=== PATIENT | female | born 1940 | race Caucasian/White ===

== ENCOUNTER 2017-02-11 09:53 | Outpatient (CLI) | payer MEDICARE, OTHER | END 2017-02-11 09:54 | disposition home or self-care (01) | DX: E78.5 Hyperlipidemia, unspecified (principal); E11.29 Type 2 diabetes mellitus with other diabetic kidney complication ==

== ENCOUNTER 2017-02-13 10:20 | Outpatient (CLI) | payer MEDICARE, OTHER | END 2017-02-13 10:21 | disposition home or self-care (01) | DX: N39.0 Urinary tract infection, site not specified (principal) ==

== ENCOUNTER 2017-03-11 06:33 | Outpatient (CLI) | payer MEDICARE, OTHER | END 2017-03-11 06:34 | disposition home or self-care (01) | DX: N39.0 Urinary tract infection, site not specified (principal) ==

== ENCOUNTER 2017-04-04 12:35 | Outpatient (CLI) | payer MEDICARE, OTHER ==
[2017-04-04] MEDS ORDERED: IOPAMIDOL-300 100 ML VIAL IVP ONE (15:47)
== END 2017-04-04 12:36 | disposition home or self-care (01) ==
DX: C7A.098 Malignant carcinoid tumors of other sites (principal); R59.0 Localized enlarged lymph nodes
CPT/HCPCS: 74170; Q9967

== ENCOUNTER 2017-04-24 09:29 | Outpatient (CLI) | payer MEDICARE, OTHER ==
[2017-04-24 13:54] LABS: HEMOGLOBIN A1C 0.77 g/dL
[2017-04-24 13:57] LABS: CHOL/HDL RATIO 2.6 (<4.4); CHOLESTEROL 132 mg/dL; HDL CHOLESTEROL 50 mg/dL; TRIGLYCERIDES 153 mg/dL; VLDL CHOLESTEROL 31 mg/dL
== END 2017-04-24 09:30 | disposition home or self-care (01) ==
LOC: LAB.WCP 09:29
PROVIDERS: ATTEND Family Medicine
DX: E78.5 Hyperlipidemia, unspecified (principal); E11.29 Type 2 diabetes mellitus with other diabetic kidney complication
CPT/HCPCS: 36415; 80061; 82043; 83036

== ENCOUNTER 2017-06-10 09:59 | Outpatient (CLI) | payer MEDICARE, OTHER ==
[2017-06-10 15:54] LABS: CALCIUM 8.8 mg/dL (8.5-10.3); CREATININE 1.1 mg/dL (0.4-1.0); POTASSIUM 4.1 mmol/L (3.5-5.0)
== END 2017-06-10 10:00 | disposition home or self-care (01) ==
LOC: LAB.WCP 09:59
PROVIDERS: ATTEND Family Medicine
DX: N28.9 Disorder of kidney and ureter, unspecified (principal)
CPT/HCPCS: 36415; 80048

== ENCOUNTER 2017-06-27 22:15 | Inpatient (IN) | payer MEDICARE, OTHER ==
[2017-06-27] MEDS ORDERED: SODIUM CHLORIDE 0.9% 1,000 ML IV ONE (22:58)
[2017-06-27] MEDS ORDERED: IPRATROPIUM/ALBUTEROL 3 ML NEB INH STA (23:23)
[2017-06-27 23:38] LABS: VBG PH 7.344 (7.31-7.41)
[2017-06-27] MEDS ORDERED: IPRATROPIUM/ALBUTEROL 3 ML NEB INH ONE ×2 (23:38→23:42)
[2017-06-27 23:39] LABS: VBG BASE EXCESS 1.7 mmol/L (-2 - +2); VBG OXYGEN SATURATION 70.3 % (60-80); VBG TOTAL CO2 29.7 mmol/L (24-29)
[2017-06-27 23:49] LABS: ALBUMIN/GLOBULIN RATIO 0.8 (1.0-2.2); BILIRUBIN,TOTAL 1.2 mg/dL (0.2-1.0); BUN - BLOOD UREA NITROGEN 16 mg/dL (6-20); CALCIUM 8.3 mg/dL (8.5-10.3); CARBON DIOXIDE - CO2 29 mmol/L (21-32); CHLORIDE 92 mmol/L (101-111); CREATININE 1.3 mg/dL (0.4-1.0); GFR - MDRD 40 (>89); GLUCOSE 404 mg/dL (70-100); LIPASE 17 U/L (22-51); POTASSIUM 4.5 mmol/L (3.5-5.0); SODIUM 129 mmol/L (135-145); TOTAL PROTEIN 6.8 g/dL (6.7-8.2)
[2017-06-28] MEDS ORDERED: INSULIN REGULAR HUMAN 100 UNIT/1 ML 10 ML MDV IVP STA (00:23)
[2017-06-28] MEDS ORDERED: INSULIN REGULAR HUMAN 100 UNIT/1 ML 10 ML MDV ONE (00:40)
[2017-06-28 00:44] LABS: BASOPHILS % (AUTO) 0.1 %; EOSINOPHILS % (AUTO) 0.2 %; HCT - HEMATOCRIT 32.9 % (37.0-47.0); HGB - HEMOGLOBIN 10.9 g/dL (12.0-16.0); LYMPHOCYTES # (AUTO) 0.5 10^3/uL (1.5-3.5); LYMPHOCYTES % (AUTO) 6.1 %; MEAN CORPUSCULAR HEMOGLOBIN 30.6 pg (27.0-31.0); MEAN CORPUSCULAR HGB CONC 33.2 g/dL (32.0-36.0); MEAN CORPUSCULAR VOLUME 92.3 fL (81.0-99.0); MEAN PLATELET VOLUME 7.7 fL (7.9-10.8); MONOCYTES # (AUTO) 0.6 10^3/uL (0.0-1.0); NEUTROPHILS # (AUTO) 6.8 10^3/uL (1.5-6.6); NEUTROPHILS % (AUTO) 85.6 %; RED BLOOD COUNT 3.56 10^6/uL (4.20-5.40); RED CELL DISTRIBUTION WIDTH 14.3 % (12.0-15.0)
[2017-06-28] MEDS ORDERED: HYDROcod/ACETAM 10 MG/325 MG TABLET PO PRN (01:10)
[2017-06-28] MEDS ORDERED: PROCHLORPERAZINE 10 MG/2 ML VIAL IVP PRN (01:10)
[2017-06-28] MEDS ORDERED: HYDROcod/ACETAM 5/325 MG TABLET PO PRN (01:10)
[2017-06-28] MEDS ORDERED: SODIUM CHLORIDE FLUSH 0.9% 10 ML SYRINGE IVP PRN (01:10)
[2017-06-28] MEDS ORDERED: ZOLPIDEM 5 MG TABLET PO PRN (01:10)
[2017-06-28] MEDS ORDERED: ONDANSETRON 4 MG/2 ML VIAL IVP PRN (01:10)
--- NOTE | 2017-06-28 01:17 | XRAY Preliminary Report ---
Exam: XR Chest 1 View IMPRESSION: 1. Mild bibasilar atelectasis or infiltrate. [facility] SITE ID: [id number]
--- NOTE | 2017-06-28 01:20 | XRAY Report ---
EXAM: CHEST RADIOGRAPHY EXAM DATE: 06/28/2017 12:46 AM. CLINICAL HISTORY: Fever, diagnosed with pneumonia persistent cough. COMPARISON: 07/26/2013. TECHNIQUE: 1 view. FINDINGS: Lungs/Pleura: Mild bibasilar atelectasis or infiltrate. No pleural effusion seen. No pneumothorax. Mediastinum: Within exam limitations, cardiomediastinal contour is normal. Other: None. IMPRESSION: 1. Mild bibasilar atelectasis or infiltrate. [facility] Referring Provider Line: [phone] SITE ID: [id number]
--- NOTE | 2017-06-28 01:23 | ED Physician Documentation ---
History of Present Illness - Stated complaint Stated Complaint: HIGH BLOOD SUGAR - Chief complaint Chief Complaint: General - History obtained from History obtained from: Patient, Family - Additonal information Additional information: Patient is a 76 year old female with a history of pancreatic ca who gets hormones and chemo once a month who is presenting to the emergency department for hyperglycemia, worsening cough and shortness of breath. According to patient and family the patient developed pneumonia last week and had been started on azithromycin. patient's insulin had been stopped since she a had few episodes of hyperglycemia. Patient and family state that the patient did not improve with the antibiotics and the blood glucose has been poorly controlled. Review of Systems Constitutional: reports: Fever, Chills Eyes: denies: Decreased vision, Photophobia Ears: denies: Ear pain, Drainage/discharge Nose: denies: Congestion, Epistaxis Throat: denies: Dental pain / toothache, Sore throat Cardiac: denies: Chest pain / pressure Respiratory: reports: Dyspnea, Cough, Wheezing GI: denies: Nausea, Vomiting, Constipation : denies: Dysuria, Frequency Skin: denies: Rash, Lesions Musculoskeletal: denies: Neck pain, Back pain, Extremity pain, Joint pain Neurologic: reports: Confused. denies: Generalized weakness, Focal weakness, Numbness, Syncope, Headache, LOC Psychiatric: denies: Depressed Immunocompromised: reports: Immunocompromised, Chemotherapy PD PAST MEDICAL HISTORY - Past Medical History Cardiovascular: Hypertension, High cholesterol Endocrine/Autoimmune: Type 2 diabetes GI: GERD, Chronic diarrhea : Nocturia Psych: Depression - Past Surgical History Past Surgical History: Yes General: Appendectomy /CNA GNA: Hysterectomy - Present Medications Home Medications: Ambulatory Orders Medication Instructions Recorded Confirmed Aspirin Chewable [[place] 81 mg PO Q48H 07/26/13 06/27/17 Aspirin] Atorvastatin Calcium [Lipitor] 40 mg PO DAILY 07/26/13 06/27/17 Calcium Carbonate/Vitamin D3 1 each PO DAILY 07/26/13 06/27/17 [Calcium + Vitamin D Tablet] Cholecalciferol (Vitamin D3) 100,000 unit PO Q30D 07/26/13 06/27/17 [Vitamin D] Insulin Aspart [NovoLOG] 5 - 13 unit SUBQ TIDWM 07/26/13 06/27/17 Insulin Glargine,Hum.rec.anlog 20 unit SQ DAILY 07/26/13 06/27/17 [Lantus] Lisinopril 10 mg PO DAILY 07/26/13 06/27/17 Sertraline [Zoloft] 25 mg PO DAILY 07/26/13 06/27/17 Vit B12/FA/Pyridoxine HCl/Aa15 1 each PO DAILY 07/26/13 06/27/17 [Glycotrol Capsule] hydroCHLOROthiazide [Hydrodiuril] 25 mg PO DAILY 07/26/13 06/27/17 Multivitamin [Multivitamins] 1 each PO DAILY 10/31/16 06/27/17 Omeprazole 10 mg PO DAILY 10/31/16 06/27/17 Calcium Carbonate [Antacid] 200 mg PO BID 03/04/17 06/27/17 Diphenoxylate/Atropine [Lomotil] 1 - 2 tab ORAL PRN PRN 06/10/17 06/27/17 Potassium Chloride 20 meq PO BID 06/24/17 06/27/17 Ipratropium/Albuterol Sulfate 1 amp INH QID 06/27/17 06/27/17 [Iprat-Albut 0.5-3(2.5) mg/3 ml] - Allergies Allergies/Adverse Reactions: Allergies Allergy/AdvReac Type Severity Reaction Status Date / Time No Known Drug Allergies Allergy Verified 07/26/13 11:10 - Social History Does the pt smoke?: No Smoking Status: Former smoker Does the pt drink ETOH?: Yes Does the pt have substance abuse?: No - POLST Patient has POLST: No PD ED PE NORMAL - Vitals Vital signs reviewed: Yes - General General: Alert and oriented X 3 - HEENT HEENT: Atraumatic, PERRL - Neck Neck: No JVD - Cardiac Cardiac: RRR - Abdomen Abdomen: Soft, Non tender, Non distended - Derm Derm: Normal color, Warm and dry, No rash - Neuro Neuro: Alert and oriented X 3, No motor deficit, Normal speech PD ED PE EXPANDED - General General: Alert - HEENT HEENT: Dry mucous membranes - Respiratory Respiratory: Wheezing, Rhonchi, Right middle lobe, Right lower lobe, Left lower lobe Results - Vitals Vitals: Vital Signs - 24 hr 06/27/17 06/27/17 06/28/17 22:20 23:44 00:44 Temperature 37.6 C H Heart Rate 82 82 100 Respiratory 20 20 20 Rate Blood Pressure 149/67 H 145/43 H O2 Saturation 96 96 Oxygen O2 Source Nasal cannula - Labs Labs: Laboratory Tests 06/27/17 06/27/17 06/27/17 23:25 23:25 23:25 WBC 8.0 RBC 3.56 L Hgb 10.9 L Hct 32.9 L MCV 92.3 MCH 30.6 MCHC 33.2 RDW 14.3 Plt Count 181 MPV 7.7 L Neut # 6.8 H Lymph # 0.5 L M[place] # 0.6 Eos # 0.0 Baso # 0.0 Absolute Nucleated RBC 0.00 Nucleated RBCs 0.0 VBG pH 7.344 VBG pCO2 52.8 H VBG pO2 35.0 VBG HCO3 28.1 H VBG Total CO2 29.7 H VBG O2 Saturation 70.3 VBG Base Excess 1.7 Sodium 129 L Potassium 4.5 Chloride 92 L Carbon Dioxide 29 Anion Gap 8.0 BUN 16 Creatinine 1.3 H Estimated GFR (MDRD) 40 L Glucose 404 H Glycated Hemoglobin Estim Average Glucose Lactic Acid Calcium 8.3 L Total Bilirubin 1.2 H AST 21 ALT 23 Alkaline Phosphatase 149 H Total Protein 6.8 Albumin 3.1 L Globulin 3.7 Albumin/Globulin Ratio 0.8 L Lipase 17 L Serum Ketones NEGATIVE 06/27/17 06/27/17 23:25 23:25 WBC RBC Hgb Hct MCV MCH MCHC RDW Plt Count MPV Neut # Lymph # Mccormick # Eos # Baso # Absolute Nucleated RBC Nucleated RBCs VBG pH VBG pCO2 VBG pO2 VBG HCO3 VBG Total CO2 VBG O2 Saturation VBG Base Excess Sodium Potassium Chloride Carbon Dioxide Anion Gap BUN Creatinine Estimated GFR (MDRD) Glucose Glycated Hemoglobin 8.2 H Estim Average Glucose 189 H Lactic Acid 1.3 Calcium Total Bilirubin AST ALT Alkaline Phosphatase Total Protein Albumin Globulin Albumin/Globulin Ratio Lipase Serum Ketones - Rads (name of study) chest x-ray Radiology: Final report received (bilateral opacities) PD MEDICAL DECISION MAKING - ED course Complexity details: reviewed old records, reviewed results, re-evaluated patient , considered differential, d/w patient, d/w family ED course: Patient was seen and examined at bedside. IV access was gained and labs were drawn. patient was treated with IV fluids, insulin and three duonebs. . chest x-ray was performed and showed bilateral pnuemonia. hospitalist was contacted and the case was discussed with him. Patient was admitted under his service for further evaluation and care. Departure - Departure Disposition: 66 [facility] DC/Xfer Clinical Impression: Pneumonia, Hyperglycemia Condition: Stable Discharge Date/Time: 06/28/17 02:16
[2017-06-28 01:50] LABS: BILIRUBIN,URINE NEGATIVE (NEGATIVE)
[2017-06-28 01:51] LABS: UA w/ MICROSCOPIC CHARGE YES
[2017-06-28 01:56] LABS: UR CULTURE IF IND NOT INDICATED; WBC,URINE >25 /HPF (0-5)
[2017-06-28 02:14] LABS: HEMOGLOBIN A1C 0.77 g/dL
[2017-06-28] MEDS: SODIUM CHLORIDE 0.9% 1,000 ML IV SCH ×4 (02:32→23:40)
[2017-06-28 06:06] LABS: BASOPHILS % (AUTO) 0.2 %; HCT - HEMATOCRIT 29.1 % (37.0-47.0); HGB - HEMOGLOBIN 9.7 g/dL (12.0-16.0); LYMPHOCYTES # (AUTO) 0.4 10^3/uL (1.5-3.5); LYMPHOCYTES % (AUTO) 5.5 %; MEAN CORPUSCULAR HEMOGLOBIN 30.6 pg (27.0-31.0); MEAN CORPUSCULAR HGB CONC 33.3 g/dL (32.0-36.0); MEAN CORPUSCULAR VOLUME 91.8 fL (81.0-99.0); MEAN PLATELET VOLUME 7.5 fL (7.9-10.8); MONOCYTES # (AUTO) 0.6 10^3/uL (0.0-1.0); MONOCYTES % (AUTO) 8.2 %; NEUTROPHILS # (AUTO) 5.9 10^3/uL (1.5-6.6); NEUTROPHILS % (AUTO) 86.1 %; RED BLOOD COUNT 3.17 10^6/uL (4.20-5.40); RED CELL DISTRIBUTION WIDTH 13.7 % (12.0-15.0); UNCORRECTED WHITE BLOOD COUNT 6.9 x10^3/uL; WHITE BLOOD COUNT 6.9 x10^3/uL (4.8-10.8)
[2017-06-28 06:08] LABS: CALCIUM 7.6 mg/dL (8.5-10.3); CREATININE 1.1 mg/dL (0.4-1.0); POTASSIUM 4.6 mmol/L (3.5-5.0)
--- NOTE | 2017-06-28 06:25 | HISTORY & PHYSICAL EXAMINATION ---
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 The patient was brought into the ER by her son and daughter in law. They state that over the last day the patient has been increasingly sleepy, lethargic and has been dosing off and talking to herself and having hallucination which is something she has never done before. The patient has been having cough, sore throat and fever for several days now and underwent a CT of her abdomen 2 days ago for routine follow up of her cancer on that CT she was found to have a right lower lobe infiltrate. She was prescribed antibiotics by her PCP yesterday and has been taking them but seems to be getting worse. The patients family also states when the patient was confused this evening they checked her blood glucose and it was 500 which alarmed them and they decided to bring the patient into the ER. The patient has been making adjustments to her lantus dose with her PCPs guidance as she had been having episodes of hypoglycemia. She had just been taken off of lantus all together 2 days ago. The patient denies any headaches, blurred vision, she is hard of hearing, she denies any abdominal pain, nausea, vomiting, urinary symptoms or focal neurological deficits. On presentation to the ER the patient was found to have a low grade fever and had a bad cough and her lungs sounded terrible. Patients blood glucose was in the 400s but she did not have DKA. Patient was admitted for IV antibiotics, IV fluid and blood glucose control. Review of Systems - Other Findings Other Findings: A comprehensive review of systems was performed the pertinent positives and negatives are stated above in the HPI the remainder of the review of systems is negative. History - Past Medical History Cardiovascular: reports: Hypertension, High cholesterol Endocrine/Autoimmune: reports: Type 2 diabetes GI: reports: GERD, Chronic diarrhea : reports: Nocturia Psych: reports: Depression MRSA Hx?: No Other Past Medical History: 1. Diabetes. 2. Carcinoid Tumor of the Pancreatic Head. 3. Hypertension. 4. Esophagitis. 5. GERD. 6. CKD stage III patient was temporarily on dialysis in the past after accident. 7. 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 She is very active and still drives herself and is fully independent. She is originally from [place] [facility] and moved here after her in 2001. She has 3 kids. She quit smoking 40 years ago. She rarely drinks alcohol. She does not use any illicit drugs. - Substance History Use: Uses substance without health or social issues: NONE Abuse: Recurrent use of substance despite neg consequences: NONE Dependence: Experiences withdrawal or developed tolerances: NONE - POLST Patient has POLST: No POLST Status: Full Code Meds/Allgy - Home Medications Home Medications: Ambulatory Orders Medication Instructions Recorded Confirmed Aspirin Chewable [[place] 81 mg PO Q48H 07/26/13 06/27/17 Aspirin] Atorvastatin Calcium [Lipitor] 40 mg PO DAILY 07/26/13 06/27/17 Calcium Carbonate/Vitamin D3 1 each PO DAILY 07/26/13 06/27/17 [Calcium + Vitamin D Tablet] Cholecalciferol (Vitamin D3) 100,000 unit PO Q30D 07/26/13 06/27/17 [Vitamin D] Insulin Aspart [NovoLOG] 5 - 13 unit SUBQ TIDWM 07/26/13 06/27/17 Insulin Glargine,Hum.rec.anlog 20 unit SQ DAILY 07/26/13 06/27/17 [Lantus] Lisinopril 10 mg PO DAILY 07/26/13 06/27/17 Sertraline [Zoloft] 25 mg PO DAILY 07/26/13 06/27/17 Vit B12/FA/Pyridoxine HCl/Aa15 1 each PO DAILY 07/26/13 06/27/17 [Glycotrol Capsule] hydroCHLOROthiazide [Hydrodiuril] 25 mg PO DAILY 07/26/13 06/27/17 Multivitamin [Multivitamins] 1 each PO DAILY 10/31/16 06/27/17 Omeprazole 10 mg PO DAILY 10/31/16 06/27/17 Calcium Carbonate [Antacid] 200 mg PO BID 03/04/17 06/27/17 Diphenoxylate/Atropine [Lomotil] 1 - 2 tab ORAL PRN PRN 06/10/17 06/27/17 Potassium Chloride 20 meq PO BID 06/24/17 06/27/17 Ipratropium/Albuterol Sulfate 1 amp INH QID 06/27/17 06/27/17 [Iprat-Albut 0.5-3(2.5) mg/3 ml] - Allergies Allergies/Adverse Reactions: Allergies Allergy/AdvReac Type Severity Reaction Status Date / Time No Known Drug Allergies Allergy Verified 07/26/13 11:10 Exam - Vital Signs Reviewed Vital Signs: Yes Vital Signs: Vital Signs x48h Temp Pulse Pulse Resp BP BP Pulse Ox 06/28/17 06:02 94 134/59 H 06/28/17 02:45 108 H 18 06/28/17 02:25 36.7 C 113 H 18 139/105 H 96 06/28/17 01:27 93 20 124/42 L 97 - Physical Exam General Appearance: positive: Moderate distress (Hallucinating, hard of hearing , coughing), Lethargic (drowsy keeps nodding off during exam) Eyes Bilateral: positive: Normal inspection, PERRL, EOMI, No lid inflammation, Conjunctivae nml, No scleral icterus ENT: positive: ENT inspection nml, Pharynx nml, Dry mucous membranes. negative : Purulent nasal drainage, Pharyngeal erythema, Oral lesions Neck: positive: Nml inspection, Thyroid nml, No JVD, Trachea midline. negative : Thyromegaly, Lymphadenopathy (R), Lymphadenopathy (L), Carotid bruit, Tracheal deviation Respiratory: positive: Chest non-tender, No respiratory distress, Rales, Rhonchi , Other (Diffuse rhoncerous breath sounds) Cardiovascular: positive: Regular rate & rhythm, No murmur, No gallop Peripheral Pulses: positive: 2+ Abdomen: positive: Non-tender, No organomegaly, Nml bowel sounds, No distention. negative: Guarding, Rebound, Bruit Back: positive: Nml inspection. negative: CVA tenderness (R), CVA tenderness (L ) Skin: positive: Color nml, No rash, Dry. negative: Cyanosis, Pallor Extremities: positive: Non-tender, Full ROM, Nml appearance, No pedal edema Neurologic/Psychiatric: positive: Oriented x3, CN's nml (2-12), Motor nml, Other (Drowsy, hard of hearing, hallucinating, talking in her sleep) Conclusion/Plan - Problem List (1) CAP (community acquired pneumonia) Conclusion/Plan: Cough, sore throat and weakness over the last week Found to have right lower lobe pneumonia on CT started on abx by PCP but not improving Today she was lethargic and confused Plan: IV ceftriaxone and IV azithromycin IVFs Supplemental O2 Nebs Monitor (2) UTI (urinary tract infection) Conclusion/Plan: Patient was lethargic and confused on presentation but no urinary symptoms She had history of diabetes which is poorly controlled on presentation Patients UA was very positive for infection Plan: IV ceftriaxone IVFs Urine cx pending Qualifiers: Urinary tract infection type: acute cystitis (3) Diabetes Conclusion/Plan: Unconrtolled blood sugars on presentation May have contributed to altered mental status Patient not in DKA Uncontrolled secondary to infection and changes in her insulin regimen Plan: Restart patients lantus at 10 units SubQ Monitor closely as she has been having hypoglycemic episodes SS insulin with meals Monitor blood glucose HbA1C of 8.2 Qualifiers: Diabetes mellitus type: type 2 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: with mcc use (4) RACHELE (acute kidney injury) Conclusion/Plan: Superintendent Custodian Janitor up to 1.3 Appears to be pre-renal as she is dehydrated secondary to infection Give IVFs Monitor 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 Avoid nephrotoxic agents (5) Hyponatremia Conclusion/Plan: Hypovolemic and pseudo secondary to elevated blood glucose Give IVFs and correct blood glucose Monitor (6) Hypertension Conclusion/Plan: Blood pressure stable Continue home meds Monitor Qualifiers: Hypertension type: essential hypertension Qualified Code(s): I10 - Essential (primary) hypertension (7) Prophylactic use of low molecular weight heparin for venous thromboembolism Conclusion/Plan: Place on lovenox - Lab Results Lab results reviewed: Yes Fish Bones: 06/27/17 23:25 06/27/17 23:25 Other Lab Results: Laboratory Results WBC 6.9 x10^3/uL (4.8-10.8) 06/28/17 05:19 RBC 3.17 10^6/uL (4.20-5.40) L 06/28/17 05:19 Hgb 9.7 g/dL (12.0-16.0) L 06/28/17 05:19 Hct 29.1 % (37.0-47.0) L 06/28/17 05:19 MCV 91.8 fL (81.0-99.0) 06/28/17 05:19 MCH 30.6 pg (27.0-31.0) 06/28/17 05:19 MCHC 33.3 g/dL (32.0-36.0) 06/28/17 05:19 RDW 13.7 % (12.0-15.0) 06/28/17 05:19 Plt Count 166 10^3/uL (130-450) 06/28/17 05:19 MPV 7.5 fL (7.9-10.8) L 06/28/17 05:19 Neut # 5.9 10^3/uL (1.5-6.6) 06/28/17 05:19 Lymph # 0.4 10^3/uL (1.5-3.5) L 06/28/17 05:19 [place] # 0.6 10^3/uL (0.0-1.0) 06/28/17 05:19 Eos # 0.0 10^3/uL (0.0-0.7) 06/28/17 05:19 Baso # 0.0 10^3/uL (0.0-0.1) 06/28/17 05:19 Absolute Nucleated RBC 0.00 x10^3/uL 06/28/17 05:19 Nucleated RBCs 0.0 /100WBC 06/28/17 05:19 VBG pH 7.344 (7.31-7.41) 06/27/17 23:25 VBG pCO2 52.8 mmHg (41-51) H 06/27/17 23:25 VBG pO2 35.0 mmHg (25-47) 06/27/17 23:25 VBG HCO3 28.1 mmol/L (23-28) H 06/27/17 23:25 VBG Total CO2 29.7 mmol/L (24-29) H 06/27/17 23:25 VBG O2 Saturation 70.3 % (60-80) 06/27/17 23:25 VBG Base Excess 1.7 mmol/L (-2 - +2) 06/27/17 23:25 Sodium 131 mmol/L (135-145) L 06/28/17 05:19 Potassium 4.6 mmol/L (3.5-5.0) 06/28/17 05:19 Chloride 96 mmol/L (101-111) L 06/28/17 05:19 Carbon Dioxide 26 mmol/L (21-32) 06/28/17 05:19 Anion Gap 9.0 (6-13) 06/28/17 05:19 BUN 15 mg/dL (6-20) 06/28/17 05:19 Creatinine 1.1 mg/dL (0.4-1.0) H 06/28/17 05:19 Estimated GFR (MDRD) 48 (>89) L 06/28/17 05:19 Glucose 365 mg/dL (70-100) H 06/28/17 05:19 Glycated Hemoglobin 8.2 % (4.6-6.2) H 06/27/17 23:25 Estim Average Glucose 189 (70-100) H 06/27/17 23:25 Lactic Acid 1.3 mmol/L (0.5-2.2) 06/27/17 23:25 Calcium 7.6 mg/dL (8.5-10.3) L 06/28/17 05:19 Total Bilirubin 1.2 mg/dL (0.2-1.0) H 06/27/17 23:25 AST 21 IU/L (10-42) 06/27/17 23:25 ALT 23 IU/L (10-60) 06/27/17 23:25 Alkaline Phosphatase 149 IU/L (42-121) H 06/27/17 23:25 Total Protein 6.8 g/dL (6.7-8.2) 06/27/17 23:25 Albumin 3.1 g/dL (3.2-5.5) L 06/27/17 23:25 Globulin 3.7 g/dL (2.1-4.2) 06/27/17 23:25 Albumin/Globulin Ratio 0.8 (1.0-2.2) L 06/27/17 23:25 Lipase 17 U/L (22-51) L 06/27/17 23:25 Urine Color YELLOW 06/28/17 01:40 Urine Clarity HAZY (CLEAR) 06/28/17 01:40 Urine pH 6.0 PH (5.0-7.5) 06/28/17 01:40 Ur Specific [place] 1.015 (1.002-1.030) 06/28/17 01:40 Urine Protein 30 mg/dL (NEGATIVE) H 06/28/17 01:40 Urine Glucose (UA) >=1000 mg/dL (NEGATIVE) H 06/28/17 01:40 Urine Ketones TRACE mg/dL (NEGATIVE) 06/28/17 01:40 Urine Occult Blood MODERATE (NEGATIVE) H 06/28/17 01:40 Urine Nitrite NEGATIVE (NEGATIVE) 06/28/17 01:40 Urine Bilirubin NEGATIVE (NEGATIVE) 06/28/17 01:40 Urine Urobilinogen 0.2 (NORMAL) E.U./dL (NORMAL) 06/28/17 01:40 Ur Leukocyte Esterase SMALL (NEGATIVE) H 06/28/17 01:40 Urine RBC 6-10 /HPF (0-5) H 06/28/17 01:40 Urine WBC >25 /HPF (0-5) H 06/28/17 01:40 Ur Squamous Epith Cells MOD Squamous (<= Few) H 06/28/17 01:40 Urine Bacteria Many /HPF (None Seen) H 06/28/17 01:40 Ur Microscopic Review INDICATED 06/28/17 01:40 Urine Culture Comments NOT INDICATED 06/28/17 01:40 Serum Ketones NEGATIVE (NEGATIVE) 06/27/17 23:25 - Diagnostic Imaging Results Diagnostic Imaging Results: positive: Final report reviewed Diagnostic Imaging Results Comments: Chest X ray: Bibasilar atlectasis or infiltrate - EKG Results EKG Interpreted Independently: Yes Issues/Core Measures - Anticipated LOS Anticipated Stay Length: 2 or more midnights - DVT/VTE - Prophylaxis VTE/DVT Prophylaxis med ordered at admit?: Yes
[2017-06-28] MEDS: PANTOPRAZOLE 40 MG TABLET PO SCH (07:10)
[2017-06-28] MEDS: SODIUM CHLORIDE FLUSH 0.9% 10 ML SYRINGE IVP SCH ×3 (07:11→21:04)
[2017-06-28] MEDS ORDERED: INSULIN ASPART 300 UNIT/3 ML PEN SUBQ SCH ×2 (08:00→17:00)
[2017-06-28] MEDS ORDERED: INSULIN GLARGINE 300 UNIT/3 ML PEN SUBQ SCH (09:00)
[2017-06-28] MEDS ORDERED: ENOXAPARIN 40 MG/0.4 ML SYRINGE SUBQ SCH (09:00)
[2017-06-28] MEDS: ENOXAPARIN 30 MG/0.3 ML SYRINGE SUBQ SCH (09:04)
[2017-06-28] MEDS: cefTRIAXone 2 GM in SODIUM CHLORIDE 0.9% MINIBAG 100 ML IV SCH (09:04)
[2017-06-28] MEDS: CHOLECALCIFEROL 400 UNIT TABLET PO SCH (09:05)
[2017-06-28] MEDS: hydroCHLOROthiazide 25 MG TABLET PO SCH (09:05)
[2017-06-28] MEDS: ATORVASTATIN 40 MG TABLET PO SCH (09:05)
[2017-06-28] MEDS: CALCIUM CARBONATE CHEW 500 MG TABLET PO SCH ×2 (09:05→21:03)
[2017-06-28] MEDS: SACCHAROMYCES BOULARDII 250 MG CAPSULE PO SCH ×2 (09:06→17:24)
[2017-06-28] MEDS: MULTIVITAMIN TABLET PO SCH (09:06)
[2017-06-28] MEDS: ASPIRIN CHEW 81 MG TABLET PO SCH (09:06)
[2017-06-28] MEDS: POTASSIUM CHLORIDE 20 MEQ TABLET PO SCH ×2 (09:06→21:03)
[2017-06-28] MEDS: LISINOPRIL 5 MG TABLET PO SCH (09:06)
[2017-06-28] MEDS: POLYETHYLENE GLYCOL 3350 17 GM PACKET PO SCH (09:24)
[2017-06-28] MEDS: SERTRALINE 25 MG TABLET PO SCH (09:24)
[2017-06-28] MEDS: AZITHROMYCIN INJ 500 MG in SODIUM CHLORIDE 0.9% 250 ML IV SCH (10:40)
[2017-06-28] MEDS: INSULIN ASPART 300 UNIT/3 ML PEN SUBQ SCH ×3 (13:26→21:07)
--- NOTE | 2017-06-28 19:02 | PROVIDER PROGRESS NOTE ---
Subjective - Prog Note Date Prog Note Date: 06/28/17 - Subjective Subjective: Pt reports having a history of intermittent diarrhea, which is occuring now. Will change diet to add a gluten-free restriction and Pt on Florenor. Objective - Vital Signs/Intake & Output Vital Signs: Vital Signs x48h Temp Pulse Pulse Resp BP Pulse Ox 06/28/17 16:30 82 20 06/28/17 16:24 37.5 C 82 20 123/73 98 06/28/17 13:02 36.8 C Intake & Output: Intake & Output 06/25/17 06/26/17 06/27/17 06/28/17 23:59 23:59 23:59 23:59 Intake Total 1964 Balance 1963 - Lab Results Fish Bones: 06/30/17 06:17 06/30/17 06:17 Other Labs: Lab Results x24hrs 06/28/17 06/28/17 06/28/17 Range/Units 16:54 14:52 11:29 WBC (4.8-10.8) x10^3/uL RBC (4.20-5.40) 10^6/uL Hgb (12.0-16.0) g/dL Hct (37.0-47.0) % MCV (81.0-99.0) fL MCH (27.0-31.0) pg MCHC (32.0-36.0) g/dL RDW (12.0-15.0) % Plt Count (130-450) 10^3/uL MPV (7.9-10.8) fL Neut # (1.5-6.6) 10^3/uL Lymph # (1.5-3.5) 10^3/uL [place] # (0.0-1.0) 10^3/uL Eos # (0.0-0.7) 10^3/uL Baso # (0.0-0.1) 10^3/uL Absolute Nucleated RBC x10^3/uL Nucleated RBCs /100WBC Sodium (135-145) mmol/L Potassium (3.5-5.0) mmol/L Chloride (101-111) mmol/L Carbon Dioxide (21-32) mmol/L Anion Gap (6-13) BUN (6-20) mg/dL Creatinine (0.4-1.0) mg/dL Estimated GFR (MDRD) (>89) Glucose (70-100) mg/dL POC Whole Bld Glucose 354 H 384 H 415 H (70 - 100) mg/dL Calcium (8.5-10.3) mg/dL Urine Color Urine Clarity (CLEAR) Urine pH (5.0-7.5) PH Ur Specific [place] (1.002-1.030) Urine Protein (NEGATIVE) mg/dL Urine Glucose (UA) (NEGATIVE) mg/dL Urine Ketones (NEGATIVE) mg/dL Urine Occult Blood (NEGATIVE) Urine Nitrite (NEGATIVE) Urine Bilirubin (NEGATIVE) Urine Urobilinogen (NORMAL) E.U./dL Ur Leukocyte Esterase (NEGATIVE) Urine RBC (0-5) /HPF Urine WBC (0-5) /HPF Ur Squamous Epith Cells (<= Few) Urine Bacteria (None Seen) /HPF Ur Microscopic Review Urine Culture Comments 06/28/17 06/28/17 06/28/17 Range/Units 07:36 05:19 05:19 WBC 6.9 (4.8-10.8) x10^3/uL RBC 3.17 L (4.20-5.40) 10^6/uL Hgb 9.7 L (12.0-16.0) g/dL Hct 29.1 L (37.0-47.0) % MCV 91.8 (81.0-99.0) fL MCH 30.6 (27.0-31.0) pg MCHC 33.3 (32.0-36.0) g/dL RDW 13.7 (12.0-15.0) % Plt Count 166 (130-450) 10^3/uL MPV 7.5 L (7.9-10.8) fL Neut # 5.9 (1.5-6.6) 10^3/uL Lymph # 0.4 L (1.5-3.5) 10^3/uL [place] # 0.6 (0.0-1.0) 10^3/uL Eos # 0.0 (0.0-0.7) 10^3/uL Baso # 0.0 (0.0-0.1) 10^3/uL Absolute Nucleated RBC 0.00 x10^3/uL Nucleated RBCs 0.0 /100WBC Sodium 131 L (135-145) mmol/L Potassium 4.6 (3.5-5.0) mmol/L Chloride 96 L (101-111) mmol/L Carbon Dioxide 26 (21-32) mmol/L Anion Gap 9.0 (6-13) BUN 15 (6-20) mg/dL Creatinine 1.1 H (0.4-1.0) mg/dL Estimated GFR (MDRD) 48 L (>89) Glucose 365 H (70-100) mg/dL POC Whole Bld Glucose 363 H (70 - 100) mg/dL Calcium 7.6 L (8.5-10.3) mg/dL Urine Color Urine Clarity (CLEAR) Urine pH (5.0-7.5) PH Ur Specific [place] (1.002-1.030) Urine Protein (NEGATIVE) mg/dL Urine Glucose (UA) (NEGATIVE) mg/dL Urine Ketones (NEGATIVE) mg/dL Urine Occult Blood (NEGATIVE) Urine Nitrite (NEGATIVE) Urine Bilirubin (NEGATIVE) Urine Urobilinogen (NORMAL) E.U./dL Ur Leukocyte Esterase (NEGATIVE) Urine RBC (0-5) /HPF Urine WBC (0-5) /HPF Ur Squamous Epith Cells (<= Few) Urine Bacteria (None Seen) /HPF Ur Microscopic Review Urine Culture Comments 06/28/17 Range/Units 01:40 WBC (4.8-10.8) x10^3/uL RBC (4.20-5.40) 10^6/uL Hgb (12.0-16.0) g/dL Hct (37.0-47.0) % MCV (81.0-99.0) fL MCH (27.0-31.0) pg MCHC (32.0-36.0) g/dL RDW (12.0-15.0) % Plt Count (130-450) 10^3/uL MPV (7.9-10.8) fL Neut # (1.5-6.6) 10^3/uL Lymph # (1.5-3.5) 10^3/uL [place] # (0.0-1.0) 10^3/uL Eos # (0.0-0.7) 10^3/uL Baso # (0.0-0.1) 10^3/uL Absolute Nucleated RBC x10^3/uL Nucleated RBCs /100WBC Sodium (135-145) mmol/L Potassium (3.5-5.0) mmol/L Chloride (101-111) mmol/L Carbon Dioxide (21-32) mmol/L Anion Gap (6-13) BUN (6-20) mg/dL Creatinine (0.4-1.0) mg/dL Estimated GFR (MDRD) (>89) Glucose (70-100) mg/dL POC Whole Bld Glucose (70 - 100) mg/dL Calcium (8.5-10.3) mg/dL Urine Color YELLOW Urine Clarity HAZY (CLEAR) Urine pH 6.0 (5.0-7.5) PH Ur Specific [place] 1.015 (1.002-1.030) Urine Protein 30 H (NEGATIVE) mg/dL Urine Glucose (UA) >=1000 H (NEGATIVE) mg/dL Urine Ketones TRACE (NEGATIVE) mg/dL Urine Occult Blood MODERATE H (NEGATIVE) Urine Nitrite NEGATIVE (NEGATIVE) Urine Bilirubin NEGATIVE (NEGATIVE) Urine Urobilinogen 0.2 (NORMAL) (NORMAL) E.U./dL Ur Leukocyte Esterase SMALL H (NEGATIVE) Urine RBC 6-10 H (0-5) /HPF Urine WBC >25 H (0-5) /HPF Ur Squamous Epith Cells MOD Squamous H (<= Few) Urine Bacteria Many H (None Seen) /HPF Ur Microscopic Review INDICATED Urine Culture Comments NOT INDICATED
[2017-06-28] MEDS: IPRATROPIUM/ALBUTEROL 3 ML NEB INH PRN (19:45)
[2017-06-28] MEDS: traZODone 50 MG TABLET PO SCH (21:04)
[2017-06-29] MEDS: IPRATROPIUM/ALBUTEROL 3 ML NEB INH PRN ×5 (02:29→19:53)
[2017-06-29] MEDS: SODIUM CHLORIDE FLUSH 0.9% 10 ML SYRINGE IVP SCH ×3 (05:23→20:40)
[2017-06-29] MEDS: PANTOPRAZOLE 40 MG TABLET PO SCH (06:15)
[2017-06-29 07:25] LABS: BASOPHILS % (AUTO) 0.5 %; EOSINOPHILS % (AUTO) 0.7 %; LYMPHOCYTES # (AUTO) 1.1 10^3/uL (1.5-3.5); LYMPHOCYTES % (AUTO) 15.9 %; MEAN CORPUSCULAR HEMOGLOBIN 30.5 pg (27.0-31.0); MEAN CORPUSCULAR HGB CONC 33.3 g/dL (32.0-36.0); MEAN CORPUSCULAR VOLUME 91.6 fL (81.0-99.0); MEAN PLATELET VOLUME 7.7 fL (7.9-10.8); MONOCYTES # (AUTO) 0.7 10^3/uL (0.0-1.0); MONOCYTES % (AUTO) 9.8 %; NEUTROPHILS % (AUTO) 73.1 %; RED BLOOD COUNT 3.28 10^6/uL (4.20-5.40); RED CELL DISTRIBUTION WIDTH 14.4 % (12.0-15.0); UNCORRECTED WHITE BLOOD COUNT 6.8 x10^3/uL; WHITE BLOOD COUNT 6.8 x10^3/uL (4.8-10.8)
[2017-06-29 07:33] LABS: CALCIUM 7.5 mg/dL (8.5-10.3); CREATININE 1.1 mg/dL (0.4-1.0); POTASSIUM 4.3 mmol/L (3.5-5.0)
[2017-06-29] MEDS: INSULIN ASPART 300 UNIT/3 ML PEN SUBQ SCH ×4 (08:06→20:37)
--- NOTE | 2017-06-29 08:22 | PROVIDER PROGRESS NOTE ---
Subjective - Prog Note Date Prog Note Date: 06/29/17 Prog Note Time: 08:22 - Subjective Subjective: weak and tired. coughing yellow phlegm. no appetite. able to ambulte to BR in room. she is supposed to be on CPAP even at home but refuses. so we put her on O2 overnight. This am O2 sats stable. Current Medications - Current Medications Current Medications: Active Medications Generic Name Dose Route Start Last Admin Trade Name Freq PRN Reason Stop Dose Admin Acetaminophen 650 mg 06/28/17 01:10 Tylenol PO Q4HR PRN Pain 1 to 4 Acetaminophen/Hydrocodone Bitart 1 tab 06/28/17 01:10 [place] 5/325 PO Q4HR PRN Pain 5 to 7 Acetaminophen/Hydrocodone Bitart 1 tab 06/28/17 01:10 [place] 10 Mg/325 Mg PO Q4HR PRN Pain 8 to 10 Albuterol/Ipratropium 3 ml 06/28/17 01:10 06/29/17 15:57 Duoneb INH 3 ml RTQID PRN Administration Wheezing Aspirin 81 mg 06/28/17 09:00 06/28/17 09:06 [place] Aspirin PO 81 mg Q48H GURWINDER Administration Atorvastatin Calcium 40 mg 06/28/17 09:00 06/29/17 09:03 Lipitor PO 40 mg DAILY GURWINDER Administration Benzonatate 100 mg 06/29/17 12:23 06/29/17 14:05 Tessalon PO 100 mg TID PRN Administration Cough Calcium Carbonate/Glycine 500 mg 06/28/17 09:00 06/29/17 09:05 Tums PO 500 mg BID GURWINDER Administration Cholecalciferol 200 unit 06/28/17 09:00 06/29/17 09:03 Vitamin D3 PO 200 unit DAILY GURWINDER Administration Enoxaparin Sodium 30 mg 06/28/17 09:00 06/29/17 09:05 Lovenox SUBQ 30 mg DAILY GURWINDER Administration Hydrochlorothiazide 25 mg 06/28/17 09:00 06/29/17 09:03 Hydrodiuril PO 25 mg DAILY GURWINDER Administration Sodium Chloride 1,000 mls @ 100 mls/hr 06/28/17 02:00 06/28/17 23:40 Normal Saline 0.9% IV 100 mls/hr .Q10H GURWINDER Administration Azithromycin 500 mg/ Sodium 250 mls @ 250 mls/hr 06/28/17 09:00 06/29/17 09:00 Chloride IV 250 mls/hr DAILY GURWINDER Administration Ceftriaxone Sodium 2 gm/ 100 mls @ 200 mls/hr 06/28/17 09:00 06/29/17 09:02 Sodium Chloride IV 200 mls/hr DAILY GURWINDER Administration Insulin Aspart 2 - 10 unit 06/29/17 08:00 06/29/17 11:51 Novolog SUBQ 10 unit 0800,1200,1700,2100 GURWINDER Administration Protocol Insulin Glargine 20 unit 06/29/17 08:19 06/29/17 09:08 Lantus Solostar SUBQ 20 unit DAILY GURWINDER Administration Lisinopril 10 mg 06/28/17 09:00 06/29/17 09:04 Zestril PO 10 mg DAILY GURWINDER Administration Multivitamins 1 tab 06/28/17 09:00 06/29/17 09:06 Theragran PO 1 tab DAILY GURWINDER Administration Ondansetron HCl 4 mg 06/28/17 01:10 Zofran Inj IVP Q6HR PRN Nausea / Vomiting Pantoprazole Sodium 40 mg 06/28/17 07:00 06/29/17 06:15 Protonix PO 40 mg QDAC GURWINDER Administration Polyethylene Glycol 17 gm 06/28/17 09:00 06/29/17 09:07 Miralax PO Not Given DAILY GURWINDER Potassium Chloride 20 meq 06/28/17 09:00 06/29/17 09:04 K-Dur PO 20 meq BID GURWINDER Administration Prochlorperazine Edisylate 10 mg 06/28/17 01:10 Compazine Inj IVP Q6HR PRN Nausea / Vomiting Saccharomyces Boulardii 250 mg 06/28/17 08:00 06/29/17 09:03 Florastor PO 250 mg BIDWM GURWINDER Administration Sertraline HCl 25 mg 06/28/17 09:00 06/29/17 09:04 Zoloft PO 25 mg DAILY GURWINDER Administration Sodium Chloride 10 ml 06/28/17 01:10 06/28/17 02:31 Normal Saline Flush 0.9% IVP 10 ml PRN PRN Administration NEEDED PER PROVIDER ORDERS Sodium Chloride 10 ml 06/28/17 06:00 06/29/17 13:27 Normal Saline Flush 0.9% IVP Not Given Q8HR GURWINDER Trazodone HCl 50 mg 06/28/17 21:00 06/28/17 21:04 Desyrel PO 50 mg QPM GURWINDER Administration Zolpidem Tartrate 5 mg 06/28/17 01:10 Ambien PO QPM PRN Insomnia Aspirin Chewable [[place] Aspirin] 81 mg PO Q48H 07/26/13 Atorvastatin Calcium [Lipitor] 40 mg PO DAILY 07/26/13 Calcium Carbonate/Vitamin D3 [Calcium + Vitamin D Tablet] 1 each PO DAILY Cholecalciferol (Vitamin D3) [Vitamin D] 100,000 unit PO Q30D 07/26/13 Insulin Aspart [NovoLOG] 5 - 13 unit SUBQ TIDWM 07/26/13 Insulin Glargine,Hum.rec.anlog [Lantus] 20 unit SQ DAILY 07/26/13 Lisinopril 10 mg PO DAILY 07/26/13 Sertraline [Zoloft] 25 mg PO DAILY 07/26/13 Vit B12/FA/Pyridoxine HCl/Aa15 [Glycotrol Capsule] 1 each PO DAILY 07/26/13 hydroCHLOROthiazide [Hydrodiuril] 25 mg PO DAILY 07/26/13 Multivitamin [Multivitamins] 1 each PO DAILY 10/31/16 Omeprazole 10 mg PO DAILY 10/31/16 Calcium Carbonate [Antacid] 200 mg PO BID 03/04/17 Diphenoxylate/Atropine [Lomotil] 1 - 2 tab ORAL PRN PRN 06/10/17 Potassium Chloride 20 meq PO BID 06/24/17 Ipratropium/Albuterol Sulfate [Iprat-Albut 0.5-3(2.5) mg/3 ml] 1 amp INH QID Objective - Vital Signs/Intake & Output Vital Signs: Vital Signs x48h Temp Pulse Pulse Resp BP Pulse Ox 06/29/17 07:30 82 18 06/29/17 02:29 69 18 06/29/17 00:59 37.1 C 73 16 126/59 L 95 Intake & Output: Intake & Output 06/26/17 06/27/17 06/28/17 06/29/17 23:59 23:59 23:59 23:59 Intake Total 3046 Output Total 300 Balance 3046 -300 - Lab Results Fish Bones: 06/29/17 07:00 06/29/17 07:00 Other Labs: Lab Results x24hrs 06/29/17 06/29/17 06/29/17 Range/Units 08:03 07:00 07:00 WBC 6.8 (4.8-10.8) x10^3/uL RBC 3.28 L (4.20-5.40) 10^6/uL Hgb 10.0 L (12.0-16.0) g/dL Hct 30.0 L (37.0-47.0) % MCV 91.6 (81.0-99.0) fL MCH 30.5 (27.0-31.0) pg MCHC 33.3 (32.0-36.0) g/dL RDW 14.4 (12.0-15.0) % Plt Count 203 (130-450) 10^3/uL MPV 7.7 L (7.9-10.8) fL Neut # 5.0 (1.5-6.6) 10^3/uL Lymph # 1.1 L (1.5-3.5) 10^3/uL [place] # 0.7 (0.0-1.0) 10^3/uL Eos # 0.0 (0.0-0.7) 10^3/uL Baso # 0.0 (0.0-0.1) 10^3/uL Absolute Nucleated RBC 0.00 x10^3/uL Nucleated RBCs 0.0 /100WBC Sodium 132 L (135-145) mmol/L Potassium 4.3 (3.5-5.0) mmol/L Chloride 102 (101-111) mmol/L Carbon Dioxide 22 (21-32) mmol/L Anion Gap 8.0 (6-13) BUN 14 (6-20) mg/dL Creatinine 1.1 H (0.4-1.0) mg/dL Estimated GFR (MDRD) 48 L (>89) Glucose 282 H (70-100) mg/dL POC Whole Bld Glucose 290 H (70 - 100) mg/dL Calcium 7.5 L (8.5-10.3) mg/dL 06/28/17 06/28/17 06/28/17 Range/Units 23:49 20:44 16:54 WBC (4.8-10.8) x10^3/uL RBC (4.20-5.40) 10^6/uL Hgb (12.0-16.0) g/dL Hct (37.0-47.0) % MCV (81.0-99.0) fL MCH (27.0-31.0) pg MCHC (32.0-36.0) g/dL RDW (12.0-15.0) % Plt Count (130-450) 10^3/uL MPV (7.9-10.8) fL Neut # (1.5-6.6) 10^3/uL Lymph # (1.5-3.5) 10^3/uL [place] # (0.0-1.0) 10^3/uL Eos # (0.0-0.7) 10^3/uL Baso # (0.0-0.1) 10^3/uL Absolute Nucleated RBC x10^3/uL Nucleated RBCs /100WBC Sodium (135-145) mmol/L Potassium (3.5-5.0) mmol/L Chloride (101-111) mmol/L Carbon Dioxide (21-32) mmol/L Anion Gap (6-13) BUN (6-20) mg/dL Creatinine (0.4-1.0) mg/dL Estimated GFR (MDRD) (>89) Glucose (70-100) mg/dL POC Whole Bld Glucose 240 H 299 H 354 H (70 - 100) mg/dL Calcium (8.5-10.3) mg/dL 06/28/17 06/28/17 06/28/17 Range/Units 14:52 11:29 05:19 WBC (4.8-10.8) x10^3/uL RBC (4.20-5.40) 10^6/uL Hgb (12.0-16.0) g/dL Hct (37.0-47.0) % MCV (81.0-99.0) fL MCH (27.0-31.0) pg MCHC (32.0-36.0) g/dL RDW (12.0-15.0) % Plt Count (130-450) 10^3/uL MPV (7.9-10.8) fL Neut # (1.5-6.6) 10^3/uL Lymph # (1.5-3.5) 10^3/uL [place] # (0.0-1.0) 10^3/uL Eos # (0.0-0.7) 10^3/uL Baso # (0.0-0.1) 10^3/uL Absolute Nucleated RBC x10^3/uL Nucleated RBCs /100WBC Sodium 131 L (135-145) mmol/L Potassium 4.6 (3.5-5.0) mmol/L Chloride 96 L (101-111) mmol/L Carbon Dioxide 26 (21-32) mmol/L Anion Gap 9.0 (6-13) BUN 15 (6-20) mg/dL Creatinine 1.1 H (0.4-1.0) mg/dL Estimated GFR (MDRD) 48 L (>89) Glucose 365 H (70-100) mg/dL POC Whole Bld Glucose 384 H 415 H (70 - 100) mg/dL Calcium 7.6 L (8.5-10.3) mg/dL 06/28/ Range/Units 05:19 WBC 6.9 (4.8-10.8) x10^3/uL RBC 3.17 L (4.20-5.40) 10^6/uL Hgb 9.7 L (12.0-16.0) g/dL Hct 29.1 L (37.0-47.0) % MCV 91.8 (81.0-99.0) fL MCH 30.6 (27.0-31.0) pg MCHC 33.3 (32.0-36.0) g/dL RDW 13.7 (12.0-15.0) % Plt Count 166 (130-450) 10^3/uL MPV 7.5 L (7.9-10.8) fL Neut # 5.9 (1.5-6.6) 10^3/uL Lymph # 0.4 L (1.5-3.5) 10^3/uL [place] # 0.6 (0.0-1.0) 10^3/uL Eos # 0.0 (0.0-0.7) 10^3/uL Baso # 0.0 (0.0-0.1) 10^3/uL Absolute Nucleated RBC 0.00 x10^3/uL Nucleated RBCs 0.0 /100WBC Sodium (135-145) mmol/L Potassium (3.5-5.0) mmol/L Chloride (101-111) mmol/L Carbon Dioxide (21-32) mmol/L Anion Gap (6-13) BUN (6-20) mg/dL Creatinine (0.4-1.0) mg/dL Estimated GFR (MDRD) (>89) Glucose (70-100) mg/dL POC Whole Bld Glucose (70 - 100) mg/dL Calcium (8.5-10.3) mg/dL Assessment/Plan - Problem List (1) Pneumonia Impression: Cough, sore throat and weakness over the last week Found to have right lower lobe pneumonia on CT started on abx by PCP but not improving Day of admit she was lethargic and confused . improved mentation and alertness over last 2 days Blood C&S negative at 24 hours. Plan: IV ceftriaxone and IV azithromycin, Day #2 IVFs Supplemental O2 Nebs Monitor (2) UTI (urinary tract infection) Conclusion/Plan: Patient was lethargic and confused on presentation but no urinary symptoms . mentation better today She had history of diabetes which is poorly controlled on presentation Patients UA was very positive for infection Plan: IV ceftriaxone, Day #2 IVFs Urine cx NOT done because of contamination with squamous cells. Qualifiers: Urinary tract infection type: acute cystitis (3) Diabetes Conclusion/Plan: Uncontrolled blood sugars on presentation May have contributed to altered mental status Patient not in DKA Uncontrolled secondary to infection and changes in her insulin regimen Plan: Restart patients lantus at 10 units SubQ and given 06/28 but increase to 20 units for today since glucose is 290 this am. 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 Monitor senior teller and once down to nml stop IV NS. Avoid nephrotoxic agents (5) Hyponatremia Conclusion/Plan: Hypovolemic and pseudo secondary to elevated blood glucose Give IVFs and correct blood glucose Monitor (6) Hypertension Conclusion/Plan: Blood pressure stable Continue home meds Monitor Qualifiers: Hypertension type: essential hypertension Qualified Code(s): I10 - Essential (primary) hypertension
[2017-06-29] MEDS: AZITHROMYCIN INJ 500 MG in SODIUM CHLORIDE 0.9% 250 ML IV SCH (09:00)
[2017-06-29] MEDS: cefTRIAXone 2 GM in SODIUM CHLORIDE 0.9% MINIBAG 100 ML IV SCH (09:02)
[2017-06-29] MEDS: CHOLECALCIFEROL 400 UNIT TABLET PO SCH (09:03)
[2017-06-29] MEDS: SACCHAROMYCES BOULARDII 250 MG CAPSULE PO SCH ×2 (09:03→16:26)
[2017-06-29] MEDS: ATORVASTATIN 40 MG TABLET PO SCH (09:03)
[2017-06-29] MEDS: hydroCHLOROthiazide 25 MG TABLET PO SCH (09:03)
[2017-06-29] MEDS: POTASSIUM CHLORIDE 20 MEQ TABLET PO SCH ×2 (09:04→20:36)
[2017-06-29] MEDS: SERTRALINE 25 MG TABLET PO SCH (09:04)
[2017-06-29] MEDS: LISINOPRIL 5 MG TABLET PO SCH (09:04)
[2017-06-29] MEDS: ENOXAPARIN 30 MG/0.3 ML SYRINGE SUBQ SCH (09:05)
[2017-06-29] MEDS: CALCIUM CARBONATE CHEW 500 MG TABLET PO SCH ×2 (09:05→20:36)
[2017-06-29] MEDS: MULTIVITAMIN TABLET PO SCH (09:06)
[2017-06-29] MEDS: POLYETHYLENE GLYCOL 3350 17 GM PACKET PO SCH (09:07)
[2017-06-29] MEDS: INSULIN GLARGINE 300 UNIT/3 ML PEN SUBQ SCH ×2 (09:08→20:37)
[2017-06-29] MEDS: BENZONATATE 100 MG CAPSULE PO PRN ×2 (14:05→23:58)
[2017-06-29] MEDS ORDERED: INSULIN REGULAR HUMAN 100 UNIT/1 ML 10 ML MDV IVP STA (16:30)
[2017-06-29] MEDS ORDERED: INSULIN REGULAR HUMAN 100 UNIT/1 ML 10 ML MDV SUBQ STA (16:33)
[2017-06-29] MEDS ORDERED: INSULIN ASPART 300 UNIT/3 ML PEN SUBQ ONE (16:44)
[2017-06-29] MEDS: SODIUM CHLORIDE 0.9% 1,000 ML IV SCH (18:03)
[2017-06-29] MEDS: traZODone 50 MG TABLET PO SCH (20:36)
[2017-06-30] MEDS: SODIUM CHLORIDE 0.9% 1,000 ML IV SCH ×2 (01:41→14:34)
[2017-06-30] MEDS: SODIUM CHLORIDE FLUSH 0.9% 10 ML SYRINGE IVP SCH ×3 (05:02→20:20)
[2017-06-30] MEDS: PANTOPRAZOLE 40 MG TABLET PO SCH (05:55)
[2017-06-30 06:56] LABS: BASOPHILS % (AUTO) 0.4 %; EOSINOPHILS # (AUTO) 0.1 10^3/uL (0.0-0.7); HCT - HEMATOCRIT 29.7 % (37.0-47.0); HGB - HEMOGLOBIN 9.8 g/dL (12.0-16.0); LYMPHOCYTES # (AUTO) 1.2 10^3/uL (1.5-3.5); MEAN CORPUSCULAR HEMOGLOBIN 30.6 pg (27.0-31.0); MEAN CORPUSCULAR HGB CONC 33.1 g/dL (32.0-36.0); MEAN CORPUSCULAR VOLUME 92.4 fL (81.0-99.0); MONOCYTES # (AUTO) 0.8 10^3/uL (0.0-1.0); MONOCYTES % (AUTO) 7.9 %; NEUTROPHILS # (AUTO) 7.7 10^3/uL (1.5-6.6); NEUTROPHILS % (AUTO) 78.7 %; RED BLOOD COUNT 3.22 10^6/uL (4.20-5.40); RED CELL DISTRIBUTION WIDTH 14.8 % (12.0-15.0); UNCORRECTED WHITE BLOOD COUNT 10.8 x10^3/uL; WHITE BLOOD COUNT 9.8 x10^3/uL (4.8-10.8)
[2017-06-30 07:00] LABS: CALCIUM 7.8 mg/dL (8.5-10.3); POTASSIUM 4.5 mmol/L (3.5-5.0)
[2017-06-30 07:18] LABS: PLATELET ESTIMATE, MANUAL NORMAL (130-450,000) (NORMAL); PLATELET MORPHOLOGY NORMAL APPEARANCE (NORMAL)
[2017-06-30] MEDS: IPRATROPIUM/ALBUTEROL 3 ML NEB INH PRN ×3 (07:31→16:17)
[2017-06-30] MEDS ORDERED: SERTRALINE 50 MG TABLET ONE (10:28)
[2017-06-30] MEDS: INSULIN ASPART 300 UNIT/3 ML PEN SUBQ SCH ×4 (10:31→20:29)
[2017-06-30] MEDS: SACCHAROMYCES BOULARDII 250 MG CAPSULE PO SCH ×2 (10:35→16:41)
[2017-06-30] MEDS: hydroCHLOROthiazide 25 MG TABLET PO SCH (10:36)
[2017-06-30] MEDS: ACETAMINOPHEN 325 MG TABLET PO PRN ×2 (10:36→20:20)
[2017-06-30] MEDS: ATORVASTATIN 40 MG TABLET PO SCH (10:36)
[2017-06-30] MEDS: LISINOPRIL 5 MG TABLET PO SCH (10:36)
[2017-06-30] MEDS: ASPIRIN CHEW 81 MG TABLET PO SCH (10:37)
[2017-06-30] MEDS: CHOLECALCIFEROL 400 UNIT TABLET PO SCH (10:39)
[2017-06-30] MEDS: MULTIVITAMIN TABLET PO SCH (10:40)
[2017-06-30] MEDS: SERTRALINE 25 MG TABLET PO SCH (10:41)
[2017-06-30] MEDS: POLYETHYLENE GLYCOL 3350 17 GM PACKET PO SCH (10:41)
[2017-06-30] MEDS: POTASSIUM CHLORIDE 20 MEQ TABLET PO SCH ×2 (10:41→20:20)
[2017-06-30] MEDS: INSULIN GLARGINE 300 UNIT/3 ML PEN SUBQ SCH ×2 (10:42→20:28)
[2017-06-30] MEDS: CALCIUM CARBONATE CHEW 500 MG TABLET PO SCH ×2 (10:43→20:20)
[2017-06-30] MEDS: ENOXAPARIN 30 MG/0.3 ML SYRINGE SUBQ SCH (10:43)
[2017-06-30] MEDS: cefTRIAXone 2 GM in SODIUM CHLORIDE 0.9% MINIBAG 100 ML IV SCH (10:45)
[2017-06-30] MEDS: AZITHROMYCIN INJ 500 MG in SODIUM CHLORIDE 0.9% 250 ML IV SCH (10:45)
[2017-06-30] MEDS: AMOXICILLIN 250 MG CAPSULE PO SCH ×2 (14:32→17:05)
[2017-06-30] MEDS: guaiFENesin/DEXTROMETHORPHAN 10 ML UDC PO PRN ×2 (14:32→20:20)
--- NOTE | 2017-06-30 15:04 | PROVIDER PROGRESS NOTE ---
Subjective - Prog Note Date Prog Note Date: 06/30/17 Prog Note Time: 14:54 - Subjective Pt reports feeling: Improved Subjective: she is sitting up eating this morning. daughter and son in law with her and have many questions. she and they do not want her having any sleep aides besides Nyquil. Not even tylenol pm. it wires her too much another IV has infiltrated. miserable with the multiple IV sticks and hard blood draws. reports multiple infusions in MAC and neeing IV infusion for dehydration. They are asking for a PICC. She has an infusion in the MAC tomorrow. 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" since the ureter was damaged with stone removal in the past Current Medications - Current Medications Current Medications: Active Medications Acetaminophen (Tylenol) 650 mg PO Q4HR PRN PRN Reason: Pain 1 to 4 Last Admin: 06/30/17 10:36 Dose: 650 mg Acetaminophen/Hydrocodone Bitart ([place] 5/325) 1 tab PO Q4HR PRN PRN Reason: Pain 5 to 7 Acetaminophen/Hydrocodone Bitart ([place] 10 Mg/325 Mg) 1 tab PO Q4HR PRN PRN Reason: Pain 8 to 10 Albuterol/Ipratropium (Duoneb) 3 ml INH RTQID PRN PRN Reason: Wheezing Last Admin: 06/30/17 11:57 Dose: 3 ml Amoxicillin (Amoxil) 250 mg PO Q6HR [facility] Last Admin: 06/30/17 14:32 Dose: 250 mg Aspirin ([place] Aspirin) 81 mg PO Q48H [facility] Last Admin: 06/30/17 10:37 Dose: 81 mg Atorvastatin Calcium (Lipitor) 40 mg PO DAILY [facility] Last Admin: 06/30/17 10:36 Dose: 40 mg Azithromycin (Zithromax) 250 mg PO DAILY [facility] Benzonatate (Tessalon) 100 mg PO TID PRN PRN Reason: Cough Last Admin: 06/29/17 23:58 Dose: 100 mg Calcium Carbonate/Glycine (Tums) 500 mg PO BID [facility] Last Admin: 06/30/17 10:43 Dose: 500 mg Cholecalciferol (Vitamin D3) 200 unit PO DAILY [facility] Last Admin: 06/30/17 10:39 Dose: 200 unit Enoxaparin Sodium (Lovenox) 30 mg SUBQ DAILY [facility] Last Admin: 06/30/17 10:43 Dose: 30 mg Guaifenesin (Robitussin Dm) 10 ml PO Q6HR PRN PRN Reason: Cough Last Admin: 06/30/17 14:32 Dose: 10 ml Hydrochlorothiazide (Hydrodiuril) 25 mg PO DAILY [facility] Last Admin: 06/30/17 10:36 Dose: 25 mg Sodium Chloride (Normal Saline 0.9%) 1,000 mls @ 100 mls/hr IV .Q10H [facility] Last Admin: 06/30/17 14:34 Dose: Not Given Ceftriaxone Sodium 2 gm/ (Sodium Chloride) 100 mls @ 200 mls/hr IV DAILY [facility] Last Admin: 06/30/17 10:45 Dose: Not Given Insulin Aspart (Novolog) 2 - 10 unit SUBQ 0800,1200,1700,2100 [facility] PRN Reason: Protocol Last Admin: 06/30/17 12:00 Dose: 8 unit Insulin Glargine (Lantus Solostar) 20 unit SUBQ DAILY [facility] Last Admin: 06/30/17 10:42 Dose: 20 unit Insulin Glargine (Lantus Solostar) 10 unit SUBQ QPM [facility] Last Admin: 06/29/17 20:37 Dose: 10 unit Lisinopril (Zestril) 10 mg PO DAILY [facility] Last Admin: 06/30/17 10:36 Dose: 10 mg Multivitamins (Theragran) 1 tab PO DAILY [facility] Last Admin: 06/30/17 10:40 Dose: 1 tab Ondansetron HCl (Zofran Inj) 4 mg IVP Q6HR PRN PRN Reason: Nausea / Vomiting Pantoprazole Sodium (Protonix) 40 mg PO QDAC [facility] Last Admin: 06/30/17 05:55 Dose: 40 mg Polyethylene Glycol (Miralax) 17 gm PO DAILY [facility] Last Admin: 06/30/17 10:41 Dose: Not Given Potassium Chloride (K-Dur) 20 meq PO BID [facility] Last Admin: 06/30/17 10:41 Dose: 20 meq Prochlorperazine Edisylate (Compazine Inj) 10 mg IVP Q6HR PRN PRN Reason: Nausea / Vomiting Saccharomyces Boulardii (Florastor) 250 mg PO BIDWM [facility] Last Admin: 06/30/17 10:35 Dose: 250 mg Sertraline HCl (Zoloft) 25 mg PO DAILY [facility] Last Admin: 06/30/17 10:41 Dose: Not Given Sodium Chloride (Normal Saline Flush 0.9%) 10 ml IVP PRN PRN PRN Reason: NEEDED PER PROVIDER ORDERS Last Admin: 06/28/17 02:31 Dose: 10 ml Sodium Chloride (Normal Saline Flush 0.9%) 10 ml IVP Q8HR [facility] Last Admin: 06/30/17 14:34 Dose: Not Given Aspirin Chewable [[place] Aspirin] 81 mg PO Q48H 07/26/13 Atorvastatin Calcium [Lipitor] 40 mg PO DAILY 07/26/13 Calcium Carbonate/Vitamin D3 [Calcium + Vitamin D Tablet] 1 each PO DAILY Cholecalciferol (Vitamin D3) [Vitamin D] 100,000 unit PO Q30D 07/26/13 Insulin Aspart [NovoLOG] 5 - 13 unit SUBQ TIDWM 07/26/13 Insulin Glargine,Hum.rec.anlog [Lantus] 20 unit SQ DAILY 07/26/13 Lisinopril 10 mg PO DAILY 07/26/13 Sertraline [Zoloft] 25 mg PO DAILY 07/26/13 Vit B12/FA/Pyridoxine HCl/Aa15 [Glycotrol Capsule] 1 each PO DAILY 07/26/13 hydroCHLOROthiazide [Hydrodiuril] 25 mg PO DAILY 07/26/13 Multivitamin [Multivitamins] 1 each PO DAILY 10/31/16 Omeprazole 10 mg PO DAILY 10/31/16 Calcium Carbonate [Antacid] 200 mg PO BID 03/04/17 Diphenoxylate/Atropine [Lomotil] 1 - 2 tab ORAL PRN PRN 06/10/17 Potassium Chloride 20 meq PO BID 06/24/17 Ipratropium/Albuterol Sulfate [Iprat-Albut 0.5-3(2.5) mg/3 ml] 1 amp INH QID Objective - Vital Signs/Intake & Output Reviewed Vital Signs: Yes Vital Signs: Vital Signs x48h Temp Pulse Pulse Resp BP Pulse Ox 06/30/17 11:59 74 20 06/30/17 07:56 36.9 C 79 18 147/57 H 93 06/30/17 07:35 90 20 Intake & Output: Intake & Output 06/27/17 06/28/17 06/29/17 06/30/17 23:59 23:59 23:59 23:59 Intake Total 3046 3180 1837 Output Total 500 1350 Balance 3046 2680 487 - Objective General Appearance: positive: No acute distress, Alert Eyes Bilateral: positive: PERRL ENT: positive: Pharynx nml, Other (hoarse voice with congested tone) Neck: positive: No JVD. negative: Stiff neck, Carotid bruit Respiratory: positive: Chest non-tender. negative: Wheezes, Rales, Rhonchi Cardiovascular: positive: Regular rate & rhythm. negative: Gallop/S4, Friction rub Abdomen: positive: Non-tender, No organomegaly, Nml bowel sounds, No distention Extremities: positive: Non-tender, Full ROM, Other (right forearm is edematous with infiltrated IV) Neurologic/Psychiatric: positive: Oriented x3, CN's nml (2-12), Motor nml (but she is weak.) - Lab Results Fish Bones: 06/30/17 06:17 06/30/17 06:17 Other Labs: Lab Results x24hrs 06/30/17 06/30/17 06/30/17 Range/Units 11:52 07:52 06:17 WBC (4.8-10.8) x10^3/uL RBC (4.20-5.40) 10^6/uL Hgb (12.0-16.0) g/dL Hct (37.0-47.0) % MCV (81.0-99.0) fL MCH (27.0-31.0) pg MCHC (32.0-36.0) g/dL RDW (12.0-15.0) % Plt Count MPV Neut # (1.5-6.6) 10^3/uL Lymph # (1.5-3.5) 10^3/uL [place] # (0.0-1.0) 10^3/uL Eos # (0.0-0.7) 10^3/uL Baso # (0.0-0.1) 10^3/uL Absolute Nucleated RBC x10^3/uL Nucleated RBCs /100WBC Manual Slide Review Platelet Estimate (NORMAL) Platelet Morphology (NORMAL) RBC Morph Micro Appear (NORMAL) Sodium 138 (135-145) mmol/L Potassium 4.5 (3.5-5.0) mmol/L Chloride 107 (101-111) mmol/L Carbon Dioxide 21 (21-32) mmol/L Anion Gap 10.0 (6-13) BUN 12 (6-20) mg/dL Creatinine 1.0 (0.4-1.0) mg/dL Estimated GFR (MDRD) 54 L (>89) Glucose 126 H (70-100) mg/dL POC Whole Bld Glucose 289 H 152 H (70 - 100) mg/dL Calcium 7.8 L (8.5-10.3) mg/dL 06/30/17 06/29/17 06/29/17 Range/Units 06:17 20:26 16:11 WBC 9.8 (4.8-10.8) x10^3/uL RBC 3.22 L (4.20-5.40) 10^6/uL Hgb 9.8 L (12.0-16.0) g/dL Hct 29.7 L (37.0-47.0) % MCV 92.4 (81.0-99.0) fL MCH 30.6 (27.0-31.0) pg MCHC 33.1 (32.0-36.0) g/dL RDW 14.8 (12.0-15.0) % Plt Count TNP MPV TNP Neut # 7.7 H (1.5-6.6) 10^3/uL Lymph # 1.2 L (1.5-3.5) 10^3/uL [place] # 0.8 (0.0-1.0) 10^3/uL Eos # 0.1 (0.0-0.7) 10^3/uL Baso # 0.0 (0.0-0.1) 10^3/uL Absolute Nucleated RBC 0.00 x10^3/uL Nucleated RBCs 0.0 /100WBC Manual Slide Review Indicated Platelet Estimate NORMAL (130-450,000) (NORMAL) Platelet Morphology NORMAL APPEARANCE (NORMAL) RBC Morph Micro Appear NORMAL APPEARANCE (NORMAL) Sodium (135-145) mmol/L Potassium (3.5-5.0) mmol/L Chloride (101-111) mmol/L Carbon Dioxide (21-32) mmol/L Anion Gap (6-13) BUN (6-20) mg/dL Creatinine (0.4-1.0) mg/dL Estimated GFR (MDRD) (>89) Glucose (70-100) mg/dL POC Whole Bld Glucose 206 H 380 H (70 - 100) mg/dL Calcium (8.5-10.3) mg/dL Assessment/Plan - Problem List (1) Pneumonia Impression: Cough, sore throat and weakness over the last week Found to have right lower lobe pneumonia on CT started on abx by PCP but not improving Day of admit she was lethargic and confused . improved mentation and alertness over 2 days an today family feels she is at baseline Blood C&S negative at 24 and hours. Plan: IV ceftriaxone and IV azithromycin, Day #3. But she keeps on infiltrating IV. Change to po abx for dc tomorrow. She wants Kam DM instead of Tessalon for cough so order written. IVFs stopped. Encourage po intake Supplemental O2 Nebs Monitor (2) UTI (urinary tract infection) Conclusion/Plan: Patient was lethargic and confused on presentation but no urinary symptoms . mentation at baseline today She had history of diabetes which is poorly controlled on presentation Patients UA was very positive for infection Plan: IV ceftriaxone, Day #3. stop today. recheck urine to see if I need to continue abx. Urine cx NOT done because of contamination with squamous cells. Qualifiers: Urinary tract infection type: acute cystitis (3) Diabetes Conclusion/Plan: Uncontrolled blood sugars on presentation May have contributed to altered mental status Patient not in DKA Uncontrolled secondary to infection and changes in her insulin regimen Plan: Restart patients lantus at 10 units SubQ and given 06/28 but increase to 20 units 06/29 with glucose 290 in the am. Was 380 last evening. This morning 152. Monitor closely as she has been having hypoglycemic episodes as outpt and was being tapered DOWN from her insulin. Has not been on metformin for a few days before admit because it was possibly contributing to her diarrhea. Diarrhea maybe a little better off of it but not by much. 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 Creat nml for her. Stop IVF and push po. 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 Avoid nephrotoxic agents (5) Hyponatremia Conclusion/Plan: Hypovolemic and pseudo secondary to elevated blood glucose Given IVFs and blood glucose corrected. She was 129 on admission and 138 today. Monitor (6) Hypertension Conclusion/Plan: Blood pressure stable Continue home meds Monitor Qualifiers: Hypertension type: essential hypertension Qualified Code(s): I10 - Essential (primary) hypertension (7) Difficult IV access. I have called [employer] ASSEMBLER operations supervisor for tomorrow, Doyle. He doesn't know schedule for tomorrow yet but he expects, on a Saturday, for it to be busy. So he will let me know if he can do a PICC line tomorrow before her discharge. I told daughter I couldn't promise it but will make sure her PCP refers her.
[2017-06-30 15:51] LABS: INR 1.2 (0.8-1.2); PT - PROTHROMBIN TIME 13.5 secs (9.9-12.6)
[2017-07-01] MEDS: AMOXICILLIN 250 MG CAPSULE PO SCH ×3 (00:26→11:35)
[2017-07-01] MEDS: BENZONATATE 100 MG CAPSULE PO PRN (00:27)
[2017-07-01] MEDS: SODIUM CHLORIDE 0.9% 1,000 ML IV SCH ×2 (01:42→11:16)
[2017-07-01] MEDS: SODIUM CHLORIDE FLUSH 0.9% 10 ML SYRINGE IVP SCH ×2 (05:21→11:18)
[2017-07-01] MEDS: PANTOPRAZOLE 40 MG TABLET PO SCH (06:01)
[2017-07-01] MEDS: IPRATROPIUM/ALBUTEROL 3 ML NEB INH PRN ×2 (07:15→11:00)
[2017-07-01 07:50] VITALS: BP 179/66
[2017-07-01] MEDS: LISINOPRIL 5 MG TABLET PO SCH (08:59)
[2017-07-01] MEDS: INSULIN ASPART 300 UNIT/3 ML PEN SUBQ SCH ×2 (08:59→11:36)
[2017-07-01] MEDS: ATORVASTATIN 40 MG TABLET PO SCH (08:59)
[2017-07-01] MEDS: SERTRALINE 25 MG TABLET PO SCH (09:00)
[2017-07-01] MEDS: hydroCHLOROthiazide 25 MG TABLET PO SCH (09:00)
[2017-07-01] MEDS: CHOLECALCIFEROL 400 UNIT TABLET PO SCH (09:00)
[2017-07-01] MEDS ORDERED: AZITHROMYCIN 250 MG TABLET PO SCH (09:00)
[2017-07-01] MEDS: SACCHAROMYCES BOULARDII 250 MG CAPSULE PO SCH (09:00)
[2017-07-01] MEDS: MULTIVITAMIN TABLET PO SCH (09:00)
[2017-07-01] MEDS: CALCIUM CARBONATE CHEW 500 MG TABLET PO SCH (09:01)
[2017-07-01] MEDS: POTASSIUM CHLORIDE 20 MEQ TABLET PO SCH (09:01)
[2017-07-01] MEDS: INSULIN GLARGINE 300 UNIT/3 ML PEN SUBQ SCH (09:03)
[2017-07-01] MEDS: ENOXAPARIN 30 MG/0.3 ML SYRINGE SUBQ SCH (09:04)
[2017-07-01] MEDS: cefTRIAXone 2 GM in SODIUM CHLORIDE 0.9% MINIBAG 100 ML IV SCH (09:04)
[2017-07-01] MEDS: POLYETHYLENE GLYCOL 3350 17 GM PACKET PO SCH (09:04)
--- NOTE | 2017-07-01 10:23 | Discharge Plan ---
Discharge Plan Disposition: Home, Self Care Condition: Good Prescriptions: Amoxicillin 250 mg PO QID #12 tab.chew Saccharomyces Boulardii [Florastor] 250 mg PO DAILY #30 capsule Azithromycin [Zithromax] 250 mg PO DAILY #2 tablet Diet: Diabetic Activity Restrictions: Activity as Tolerated Shower Restrictions: No Driving Restrictions: No Additional Instructions or Follow Up instructions: You were admitted to the hospital with 2 infections. The first was pneumonia and the second was a urinary tract infection. Please complete the 3 more days of antibiotics prescribed. The prescriptions were sent to [facility]. You requested a PICC line for access to be placed and we did that before discharge Please schedule a followup appointment with your primary care provider in the next 2 weeks. You already have a sandostatin infusion scheduled for today with YOSELIN and Dr. Mann. No Smoking: If you smoke, Please STOP! Call for help.
[2017-07-01] MEDS: ACETAMINOPHEN 325 MG TABLET PO PRN (11:44)
--- NOTE | 2017-07-01 14:09 | XRAY Report ---
FRONTAL CHEST: 07/01/2017 CLINICAL INDICATION: PICC placement. FINDINGS: Frontal view of the chest is compared to previous film of 06/28/2017. There has been interval placement of a right arm PICC terminating in the distal superior vena cava. B asilar air space disease persists. No effusion or pneumothorax. IMPRESSION: RIGHT ARM PICC TERMINATING IN THE DISTAL SUPERIOR VENA CAVA. JOB #: [id number] EXT JOB #:[id number]
--- NOTE | 2017-07-02 11:21 | DISCHARGE SUMMARY ---
DATE OF ADMISSION: 06/28/2017 DATE OF DISCHARGE: 07/01/2017 PRIMARY CARE PROVIDER: Mary Carmen Guerra MD DISCHARGE DIAGNOSES: 1. Community-acquired pneumonia. 2. Urinary tract infection. 3. Type 2 diabetes mellitus, controlled with complications with long-term use of insulin. 4. Acute kidney injury. 5. Dehydration. 6. Hyponatremia. 7. Hypertension. 8. Difficult intravenous access. DISCHARGE MEDICATIONS: 1. Antacids with calcium 200 mg p.o. b.i.d. 2. Calcium with vitamin D 1 tablet daily. 3. Glucotrol capsule 1 capsule daily. 4. HydroDIURIL 25 mg daily. 5. Ipratropium with albuterol one ampule inhalation 4 times a day. 6. Lantus 20 units daily with increase from 10 units daily on admission. 7. Lipitor 40 mg daily. 8. Lisinopril 10 mg daily. 9. Lomotil 1-2 tablets as needed for diarrhea. 10. Multivitamin daily. 11. Novolog sliding scale insulin before each meal 3 times daily. 12. Omeprazole 10 mg daily. 13. Potassium 20 mEq p.o. b.i.d. 14. Aspirin 81 mg daily. 15. Vitamin D 100,000 units every 30 days. 16. Zoloft 25 mg daily. 17. Amoxicillin 250 mg p.o. q.i.d. #12. 18. Florastor 250 mg p.o. daily. #30. 19. Zithromax 250 mg daily #2. PRINCIPAL PROCEDURES: 1. Blood cultures which were negative at 48 hours. 2. Chest x-ray on 06/28 and 07/01/2017. She has a mild infiltrate and a PICC line placed while in-ho use is adequately placed. HOSPITAL COURSE: The patient is a 76-year-old female who has frequent UTIs because of anatomic disru ption from in bladders. This is because of repeated kidney stones with repeated surgical pr ocedures. She seems to intimate that she had the left ureter ruptured and a new ureter in the form of "a vein" was attached to her bladder. 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 She is seen in the [facility] clinic regularly. She has severe diarrhea bec ause of the carcinoid tumor and Sandostatin. She sometimes gets quite a bit of IV fluids for hydratio n, she tells me through the MAC. She had a cough and sore throat for several days with fever. Two days ago she underwent a staging CT for follow up of her carcinoid tumor. On that CT she was found to have a right lower lobe infiltrate . She was given antibiotics by her PCP yesterday but seems to be getting worse. She is confused on t he evening of admission, glucose was greater than 500 and they brought her to the emergency room. In the last few weeks she has not been eating very much and her Lantus dose was getting reduced because of hypoglycemia to the 40s and 50s. She was taken off her Lantus altogether 2 days ago. She denies he adache, blurred vision. She denies abdominal pain, nausea, vomiting. She denies urgency, frequency, d ysuria or flank pain. In the emergency room she had a low-grade fever and a severe cough with terrible rhonchus sounding syd ngs. Glucose was in the 400s but no DKA. For her pneumonia, the chest x-ray really did not confirm findings, it was the CT that we based her t reatment on. She was placed on IV ceftriaxone and azithromycin for 3 days. She kept on infiltrating her IV so as such on the 4th day she as switched over to oral medications. She is to complete 2 grams of azithromycin, and Amoxil for 3 more days. She is also placed on Florastor for bowel health. Durin g her stay, cough was problematic and she wanted Robitussin DM and did not want Tessalon and that was used during her stay. On the day of discharge she was not hypoxic and 94% on room air. Blood culture s were negative at 48 hours. Cough had improved tremendously by the time of discharge and she had a g ood appetite and was eating close to 100% of her meals. On admission a UTI was identified but unfortunately had abnormal urinary constituents including numer ous squamous cells. As such, a culture was not done. She finished 3 days of IV antibiotic therapy wit pj Wu. Type 2 diabetes mellitus was problematic in that sugars were uncontrolled on admission. She was start ed promptly on IV hydration with 0.9 normal saline, subcutaneous Lantus, as well as sliding scale ins ulin. By discharge she was on 20 units of Lantus. She would receive sometimes up to 28 units of short -acting insulin before meals to bring her sugars down. On the day of discharge, glucose was 371 fasti ng in the morning. She will need to go home on her Lantus 20 units and sliding scale insulin. Dr. John moore has already contacted me and she will be working closely with the family in monitoring sugars and making sure they are controlled. A1c during her stay was 8.2%. Acute kidney injury was present on admission. This is attributed to dehydration. Creatinine was up to 1.3. By the day of discharge she was 1. On the first day she was positive 3000 mL, the second 2600 m L. She was transitioned to just oral fluids with IV lock. She continues to have diarrhea from her car cinoid and that is a problem and will contribute to her dehydration if her sugars get higher. In the outpatient setting, diarrhea is being controlled with Lomotil. Hyponatremia was present. It was 129 on admission and 138 the day before discharge. Blood pressure was stable during her stay, occasionally systolic was in the 130s to 140s. No changes made with her blood pressure medication. She complained of multiple sticks. Her IJ came out. Multiple arm IVs came out. The daughter requested a PICC line be placed. She described monthly infusions, and multiple sticks in the MAC unit for IV h ydration. I thought it was a reasonable request. As such, the patient received a PICC line on the day of discharge. She tolerated it well. Chest x-ray confirmed placement. During her stay the family made it known that the patient does not tolerate benzodiazepines or any sl eep aids. They only like her to have NyQuil. DISCHARGE PHYSICAL EXAMINATION: GENERAL: She was discharged in much improved and stable condition. She is an alert, oriented, elderly female who still has a slightly hoarse voice, nasal congested tone of voice, shotty neck adenopathy. VITAL SIGNS: Temperature was 36.7, heart rate 69. Blood pressure 149/67, respirations 18. 94% on room air. LUNGS: No respiratory distress with slight bilateral bibasilar rhonchi and prolonged in exhalation. CARDIOVASCULAR: She had a regular rate and rhythm with a soft, systolic ejection murmur at the left l ower sternal border, nonradiating. ABDOMEN: Benign. EXTREMITIES: Had no edema. The right forearm had some slight swelling from IV 0.9 infiltration. Mult iple purpura from needle sticks were present. She is ambulating in the room without any assistance. E ating without any assistance. And cheerful. TIME SPENT: Greater than 30 minutes was spent in coordinating discharge. JOB #: [id number] EXT JOB #:[id number]
== END 2017-07-01 14:11 | disposition home or self-care (01) | DRG 194 ==
LOC: ED 22:15 → MS2 06-28 01:10
PROVIDERS: ADMIT Internal Medicine; ATTEND Specialist
PROC: 02HV33Z Insertion of Infusion Device into Superior Vena Cava, Percutaneous Approach (ICD-10-PCS; principal; 2017-07-01)
DX: J18.9 Pneumonia, unspecified organism (principal); N30.00 Acute cystitis without hematuria; C25.9 Malignant neoplasm of pancreas, unspecified; N17.9 Acute kidney failure, unspecified; I10 Essential (primary) hypertension; E87.1 Hypo-osmolality and hyponatremia; C7A.098 Malignant carcinoid tumors of other sites; E11.65 Type 2 diabetes mellitus with hyperglycemia; E86.0 Dehydration; E86.1 Hypovolemia; E11.22 Type 2 diabetes mellitus with diabetic chronic kidney disease; I12.9 Hypertensive chronic kidney disease with stage 1 through stage 4 chronic kidney disease, or unspecified chronic kidney disease; N18.3 Chronic kidney disease, stage 3 (moderate); E78.00 Pure hypercholesterolemia, unspecified; K52.89 Other specified noninfective gastroenteritis and colitis; E11.3299 Type 2 diabetes mellitus with mild nonproliferative diabetic retinopathy without macular edema, unspecified eye; K20.9 Esophagitis, unspecified; K21.9 Gastro-esophageal reflux disease without esophagitis; F32.9 Major depressive disorder, single episode, unspecified; Z79.4 Long term (current) use of insulin; Z87.442 Personal history of urinary calculi; Z79.899 Other long term (current) drug therapy; Z87.891 Personal history of nicotine dependence; Z79.82 Long term (current) use of aspirin; Z91.19 Patient's noncompliance with other medical treatment and regimen
CPT/HCPCS: 36415; 71010; 80048; 80053; 81001; 81003; 82009; 82803; 83036; 83605; 83690; 85025; 85610; 87040; 87086; 94640; 96360; 99284; 99285

== ENCOUNTER 2017-07-09 11:45 | Outpatient (CLI) | payer MEDICARE, OTHER | END 2017-07-09 11:46 | disposition home or self-care (01) | LOC: LAB.WCP 11:45 | PROVIDERS: ATTEND Family Medicine | DX: N39.0 Urinary tract infection, site not specified (principal) | CPT/HCPCS: 87086 ==

== ENCOUNTER 2017-08-20 20:19 | Outpatient (CLI) | payer MEDICARE, OTHER | END 2017-08-20 20:20 | disposition home or self-care (01) | LOC: LAB.R 20:19 | PROVIDERS: ATTEND Family Medicine | DX: N39.0 Urinary tract infection, site not specified (principal) | CPT/HCPCS: 87077; 87086 ==

== ENCOUNTER 2017-09-16 12:41 | Outpatient (CLI) | payer MEDICARE, OTHER | END 2017-09-16 12:42 | disposition home or self-care (01) | LOC: LAB.WCP 12:41 | PROVIDERS: ATTEND Family Medicine | DX: N39.0 Urinary tract infection, site not specified (principal) | CPT/HCPCS: 81001; 87077; 87086 ==

== ENCOUNTER 2017-10-15 15:45 | Outpatient (CLI) | payer MEDICARE, OTHER | END 2017-10-15 15:46 | disposition home or self-care (01) | LOC: LAB.R 15:45 | PROVIDERS: ATTEND Family Medicine | DX: N39.0 Urinary tract infection, site not specified (principal) | CPT/HCPCS: 87077; 87086 ==

== ENCOUNTER 2017-10-29 16:45 | Outpatient (CLI) | payer MEDICARE, OTHER | END 2017-10-29 16:46 | disposition home or self-care (01) | LOC: LAB.R 16:45 | PROVIDERS: ATTEND Family Medicine | DX: N39.0 Urinary tract infection, site not specified (principal) | CPT/HCPCS: 87086 ==

== ENCOUNTER 2017-12-03 10:00 | Outpatient (CLI) | payer MEDICARE, OTHER ==
[2017-12-03 13:38] LABS: ALBUMIN 3.5 g/dL (3.2-5.5); ALBUMIN/GLOBULIN RATIO 1.1 (1.0-2.2); ALKALINE PHOSPHATASE 126 IU/L (42-121); ALT ALANINE AMINOTRANSFERASE 25 IU/L (10-60); AST ASPARTATE AMINOTRANSFERASE 23 IU/L (10-42); BILIRUBIN,TOTAL 0.9 mg/dL (0.2-1.0); BUN - BLOOD UREA NITROGEN 22 mg/dL (6-20); CALCIUM 8.7 mg/dL (8.5-10.3); CARBON DIOXIDE - CO2 30 mmol/L (21-32); CHLORIDE 100 mmol/L (101-111); CHOL/HDL RATIO 3.4 (<4.4); CHOLESTEROL 141 mg/dL; CREATININE 1.2 mg/dL (0.4-1.0); GFR - MDRD 44 (>89); GLUCOSE 159 mg/dL (70-100); HDL CHOLESTEROL 42 mg/dL; LDL CHOLESTEROL,CALCULATED 69 mg/dL; LDL/HDL RATIO 1.6 (<4.4); SODIUM 138 mmol/L (135-145); TOTAL PROTEIN 6.6 g/dL (6.7-8.2); VLDL CHOLESTEROL 30 mg/dL
[2017-12-03 14:09] LABS: HB2 TOTAL 14.4 g/dL; HEMOGLOBIN A1C 1.24 g/dL
== END 2017-12-03 10:01 | disposition home or self-care (01) ==
LOC: LAB.WCP 10:00
PROVIDERS: ATTEND Family Medicine
DX: E78.5 Hyperlipidemia, unspecified (principal); E10.29 Type 1 diabetes mellitus with other diabetic kidney complication; E55.9 Vitamin D deficiency, unspecified
CPT/HCPCS: 36415; 80053; 80061; 82306; 83036

== ENCOUNTER 2017-12-25 08:00 | Outpatient (CLI) | payer MEDICARE, OTHER ==
[2017-12-25 19:29] LABS: BILIRUBIN,URINE NEGATIVE (NEGATIVE); GLUCOSE, URINE (UA) NEGATIVE (NEGATIVE); KETONES,URINE (UA) NEGATIVE (NEGATIVE); LEUKOCYTE ESTERASE, URINE SMALL (NEGATIVE); NITRITE,URINE NEGATIVE (NEGATIVE); OCCULT BLOOD,URINE LARGE (NEGATIVE); PH,URINE 6.5 PH (5.0-7.5); PROTEIN,URINE TRACE mg/dL (NEGATIVE); UROBILINOGEN,URINE 0.2 (NORMAL) E.U./dL (NORMAL)
[2017-12-25 19:46] LABS: BACTERIA,URINE Many /HPF (None Seen); CLARITY,URINE HAZY (CLEAR); RBC,URINE TNTC /HPF (0-5); SQUAMOUS EPITHELIAL CELL,UR MANY Squamous (<= Few); YEAST,URINE PRESENT
== END 2017-12-25 08:01 | disposition home or self-care (01) ==
LOC: LAB.WCP 08:00
PROVIDERS: ATTEND Family Medicine
DX: R30.0 Dysuria (principal)
CPT/HCPCS: 81001; 87086

== ENCOUNTER 2017-12-30 08:00 | Outpatient (CLI) | payer MEDICARE, OTHER | END 2017-12-30 08:01 | disposition home or self-care (01) | LOC: LAB.R 08:00 | PROVIDERS: ATTEND Family Medicine | DX: N39.0 Urinary tract infection, site not specified (principal) | CPT/HCPCS: 87086 ==

== ENCOUNTER 2018-02-17 12:14 | Outpatient (CLI) | payer MEDICARE, OTHER ==
--- NOTE | 2018-02-17 14:28 | XRAY Report ---
TWO VIEW CHEST: 02/17/2018 CLINICAL INDICATION: COPD. FINDINGS: Frontal and lateral views of the chest are compared to previous film of 07/01/2017. The cardiac silhouette is within normal limits. The lungs are clear. No effusion or pneumothorax is present. IMPRESSION: NORMAL CHEST. TD: 02/17/2018 14:27
== END 2018-02-17 12:15 | disposition home or self-care (01) ==
LOC: DI 12:14
PROVIDERS: ATTEND Family Medicine
DX: J44.9 Chronic obstructive pulmonary disease, unspecified (principal)
CPT/HCPCS: 71046

== ENCOUNTER 2018-02-17 18:46 | Outpatient (CLI) | payer MEDICARE, OTHER ==
[2018-02-17] MEDS ORDERED: IOPAMIDOL-300 100 ML VIAL ONE (19:23)
[2018-02-17] MEDS ORDERED: IOPAMIDOL-300 100 ML VIAL IVP ONE (20:31)
--- NOTE | 2018-02-17 22:18 | CT Report ---
EXAM: CT ANGIOGRAM CHEST EXAM DATE: 02/17/2018 08:31 PM. CLINICAL HISTORY: DYSPNEA. COMPARISON: 02/19/[address] TECHNIQUE: Routine helical imaging was performed through the chest in the pulmonary arterial phase. I V Contrast: 60 mL Isovue-300. Reconstructions: Coronal 3-D MIP reconstructions.Sagittal and coronal. In accordance with CT protocol optimization, one or more of the following dose reduction techniques w ere utilized for this exam: automated exposure control, adjustment of mA and/or KV based on patient s ize, or use of iterative reconstructive technique. FINDINGS: Pulmonary Arteries: Diagnostic quality: Adequate through the segmental arteries. No evidence for acute or chronic pulmona ry emboli. RV/LV is within normal limits. There is no interventricular septal bowing. There is no reflux of cont rast material in the IVC. Lungs/Pleura: No consolidation, nodules, or edema. No effusions or pneumothorax. Mediastinum: Normal. No cardiac enlargement or adenopathy. Thoracic Aorta: Atherosclerotic aorta. No evidence of aneurysm or dissection. Upper Abdomen: Small hiatal hernia. Several stones seen within the gallbladder. Other: None. IMPRESSION: 1. No pulmonary embolism or acute airspace disease. 2. Cholelithiasis. [facility] Referring Provider Line: [phone] SITE ID: [id number]
--- NOTE | 2018-02-17 22:18 | CT Preliminary Report ---
Exam: CT CHEST ANGIO (PE) IMPRESSION: 1. No pulmonary embolism or acute airspace disease. 2. Cholelithiasis. [facility] SITE ID: [id number]
--- NOTE | 2018-02-17 22:19 | Ultrasound Preliminary Report ---
Exam: US DUPLEX EXT VEINS RIGHT IMPRESSION: No evidence for deep venous thrombosis. [facility] SITE ID: [id number]
--- NOTE | 2018-02-17 22:19 | Ultrasound Report ---
EXAM: RIGHT LOWER EXTREMITY VENOUS ULTRASOUND EXAM DATE: 02/17/2018 09:34 PM. CLINICAL HISTORY: DYSPNEA. COMPARISON: 04/02/2017. TECHNIQUE: Real-time sonographic vascular imaging was performed by the solar energy systems engineer through the lower extremity utilizing both color-flow and Doppler spectral analysis. Multiple banking representative static michael ges were saved for review. FINDINGS: Common Femoral Vein (CFV): Normal. CFV-GSV Junction: Normal. Profunda Femoral Vein (PFV): Normal. Femoral Vein (FV) Prox: Normal. Femoral Vein (FV) Mid: Normal. Femoral Vein (FV) Dist: Normal. Popliteal Vein: Normal. Posterior Tibial Veins: Normal. Peroneal Veins: Normal. Contralateral Side CFV: Normal. Other: None. IMPRESSION: No evidence for deep venous thrombosis. [facility] Referring Provider Line: [phone] SITE ID: [id number]
== END 2018-02-17 18:47 | disposition home or self-care (01) ==
LOC: DI 18:46
PROVIDERS: ATTEND Family Medicine
DX: R06.00 Dyspnea, unspecified (principal); R22.41 Localized swelling, mass and lump, right lower limb; J44.9 Chronic obstructive pulmonary disease, unspecified; K80.20 Calculus of gallbladder without cholecystitis without obstruction
CPT/HCPCS: 71046; 71275; 93971; Q9967

== ENCOUNTER 2018-03-05 09:04 | Outpatient (CLI) | payer MEDICARE, OTHER ==
[2018-03-05 13:00] LABS: CHOL/HDL RATIO 2.3 (<4.4); CHOLESTEROL 125 mg/dL; HB2 TOTAL 13.8 g/dL; HDL CHOLESTEROL 55 mg/dL; HEMOGLOBIN A1C 1.35 g/dL; HEMOGLOBIN A1C % 11.1 % (4.6-6.2); LDL CHOLESTEROL,CALCULATED 53 mg/dL; VLDL CHOLESTEROL 17 mg/dL
== END 2018-03-05 09:05 | disposition home or self-care (01) ==
LOC: LAB.WCP 09:04
PROVIDERS: ATTEND Family Medicine
DX: E78.5 Hyperlipidemia, unspecified (principal); E11.29 Type 2 diabetes mellitus with other diabetic kidney complication
CPT/HCPCS: 36415; 80061; 83036; 83721

== ENCOUNTER 2018-05-07 08:00 | Outpatient (CLI) | payer MEDICARE, OTHER ==
[2018-05-07 12:46] LABS: CALCIUM 8.4 mg/dL (8.5-10.3); CREATININE 1.2 mg/dL (0.4-1.0)
== END 2018-05-07 08:01 | disposition home or self-care (01) ==
LOC: LAB.WCP 08:00
PROVIDERS: ATTEND Family Medicine
DX: I10 Essential (primary) hypertension (principal)
CPT/HCPCS: 36415; 80048

== ENCOUNTER 2018-06-19 06:20 | Outpatient (CLI) | payer MEDICARE, OTHER ==
[2018-06-19 08:06] LABS: BASOPHILS # (AUTO) 0.1 10^3/uL (0.0-0.1); BASOPHILS % (AUTO) 0.9 %; EOSINOPHILS # (AUTO) 0.1 10^3/uL (0.0-0.7); HGB - HEMOGLOBIN 13.2 g/dL (12.0-16.0); LYMPHOCYTES # (AUTO) 1.5 10^3/uL (1.5-3.5); LYMPHOCYTES % (AUTO) 20.3 %; MEAN CORPUSCULAR HEMOGLOBIN 30.7 pg (27.0-31.0); MEAN CORPUSCULAR HGB CONC 32.9 g/dL (32.0-36.0); MEAN CORPUSCULAR VOLUME 93.2 fL (81.0-99.0); MEAN PLATELET VOLUME 7.4 fL (7.9-10.8); MONOCYTES # (AUTO) 0.4 10^3/uL (0.0-1.0); MONOCYTES % (AUTO) 5.2 %; NEUTROPHILS # (AUTO) 5.1 10^3/uL (1.5-6.6); NEUTROPHILS % (AUTO) 71.6 %; PLT - PLATELET COUNT 216 10^3/uL (130-450); RED BLOOD COUNT 4.29 10^6/uL (4.20-5.40); RED CELL DISTRIBUTION WIDTH 14.4 % (12.0-15.0); WHITE BLOOD COUNT 7.2 x10^3/uL (4.8-10.8)
[2018-06-19 08:27] LABS: CHOL/HDL RATIO 2.5 (<4.4); CHOLESTEROL 117 mg/dL; HDL CHOLESTEROL 47 mg/dL; LDL CHOLESTEROL,CALCULATED 50 mg/dL; LDL/HDL RATIO 1.1 (<4.4); VLDL CHOLESTEROL 20 mg/dL
[2018-06-19 08:29] LABS: HB2 TOTAL 13.2 g/dL; HEMOGLOBIN A1C 1.04 g/dL; HEMOGLOBIN A1C % 9.4 % (4.6-6.2)
== END 2018-06-19 06:21 | disposition home or self-care (01) ==
LOC: LAB 06:20
PROVIDERS: ATTEND Family Medicine
DX: E78.5 Hyperlipidemia, unspecified (principal); E10.29 Type 1 diabetes mellitus with other diabetic kidney complication; I10 Essential (primary) hypertension
CPT/HCPCS: 36415; 80061; 83036; 83721; 85025

== ENCOUNTER 2018-06-19 08:02 | Outpatient (CLI) | payer MEDICARE, OTHER ==
[2018-06-19] MEDS ORDERED: IOPAMIDOL-300 100 ML VIAL ONE (08:50)
[2018-06-19] MEDS ORDERED: IOPAMIDOL-300 100 ML VIAL IVP ONE (09:12)
--- NOTE | 2018-06-19 10:37 | CT Report ---
Procedure Date: 06/19/2018 Accession Number: [id number] / [id number] Procedure: CT - Abdomen W/WO CPT Code: FULL RESULT: EXAM: Abdomen W/WO DATE: 06/19/2018 9:23 AM CLINICAL HISTORY: CARCINOID TUMOR AT HEAD OF PANCREAS COMPARISON: CT abdomen 06/25/2017. TECHNIQUE: Routine helical CT imaging was performed through the abdomen. IV contrast: 100 mL of Isovue 300.. Enteric contrast: Yes.. Reconstruction: Coronal and sagittal. In accordance with CT protocol optimization, one or more of the following dose reduction techniques were utilized for this exam: automated exposure control, adjustment of mA and/or KV based on patient size, or use of iterative reconstructive technique. FINDINGS: The examination is limited by the fact that contrast is effectively in the arterial phase. Lung Bases: Unremarkable. Liver: Normal. No masses. Gallbladder/Bile Ducts: Cholelithiasis. Spleen: Normal. Pancreas: The avidly enhancing pancreatic head mass with partial calcification now measures 4.3 x 3.9 x 4.0 compared to 4.2 x 3.8 x 4.2 (CC by T by AP) taking into account soft tissue planes and subjective volume assessment this is stable when accounting for differences in technique. Adrenal Glands: No masses. Kidneys: Bilateral renal scars, no mass or hydronephrosis. Peritoneal Cavity/Bowel: Gastrohepatic ligament lymphadenopathy, peripancreatic lymphadenopathy and lymph nodes in the mesenteric root are stable. No new regions of lymphadenopathy are identified. There is no extraintestinal gas or free intraperitoneal fluid and there is no bowel obstruction. Vasculature: Duplicated right renal arteries. Bones: No significant abnormality Other: Within the posterior left subcutaneous soft tissues and partially imaged in the posterior right subcutaneous soft tissues are 2 gas and fluid containing collections measuring 1.7 and 2.1 cm respectively. These should be correlated to ongoing hypodermic Court injection granulomata" versus abscess formation. IMPRESSION: Stable disease. [facility]
== END 2018-06-19 08:03 | disposition home or self-care (01) ==
LOC: DI 08:02
PROVIDERS: ATTEND Internal Medicine Hematology & Oncology
DX: C7A.098 Malignant carcinoid tumors of other sites (principal)
CPT/HCPCS: 74170; Q9967

== ENCOUNTER 2018-09-09 09:45 | Outpatient (CLI) | payer MEDICARE, OTHER ==
[2018-09-09 12:42] LABS: ALBUMIN 3.3 g/dL (3.2-5.5); ALBUMIN/GLOBULIN RATIO 1.1 (1.0-2.2); ALKALINE PHOSPHATASE 214 IU/L (42-121); ALT ALANINE AMINOTRANSFERASE 80 IU/L (10-60); AST ASPARTATE AMINOTRANSFERASE 39 IU/L (10-42); BILIRUBIN,TOTAL 0.8 mg/dL (0.2-1.0); BUN - BLOOD UREA NITROGEN 24 mg/dL (6-20); CALCIUM 8.6 mg/dL (8.5-10.3); CARBON DIOXIDE - CO2 31 mmol/L (21-32); CHLORIDE 99 mmol/L (101-111); CHOL/HDL RATIO 2.6 (<4.4); CHOLESTEROL 133 mg/dL; CREATININE 1.1 mg/dL (0.4-1.0); GFR - MDRD 48 (>89); GLUCOSE 182 mg/dL (70-100); HDL CHOLESTEROL 52 mg/dL; LDL CHOLESTEROL,CALCULATED 56 mg/dL; LDL/HDL RATIO 1.1 (<4.4); SODIUM 138 mmol/L (135-145); TOTAL PROTEIN 6.2 g/dL (6.7-8.2); VLDL CHOLESTEROL 25 mg/dL
[2018-09-09 12:49] LABS: HB2 TOTAL 13.6 g/dL; HEMOGLOBIN A1C 1.41 g/dL; HEMOGLOBIN A1C % 11.6 % (4.6-6.2)
[2018-09-09 13:00] LABS: BASOPHILS % (AUTO) 0.5 %; EOSINOPHILS # (AUTO) 0.1 10^3/uL (0.0-0.7); EOSINOPHILS % (AUTO) 2.3 %; HGB - HEMOGLOBIN 13.3 g/dL (12.0-16.0); LYMPHOCYTES # (AUTO) 1.2 10^3/uL (1.5-3.5); LYMPHOCYTES % (AUTO) 19.6 %; MEAN CORPUSCULAR HGB CONC 33.1 g/dL (32.0-36.0); MEAN CORPUSCULAR VOLUME 93.6 fL (81.0-99.0); MEAN PLATELET VOLUME 7.7 fL (7.9-10.8); MONOCYTES # (AUTO) 0.3 10^3/uL (0.0-1.0); MONOCYTES % (AUTO) 5.4 %; NEUTROPHILS # (AUTO) 4.4 10^3/uL (1.5-6.6); NEUTROPHILS % (AUTO) 72.2 %; PLT - PLATELET COUNT 198 10^3/uL (130-450); RED BLOOD COUNT 4.31 10^6/uL (4.20-5.40); RED CELL DISTRIBUTION WIDTH 13.9 % (12.0-15.0)
== END 2018-09-09 09:46 | disposition home or self-care (01) ==
LOC: LAB.WCP 09:45
PROVIDERS: ATTEND Family Medicine
DX: E78.5 Hyperlipidemia, unspecified (principal); E11.29 Type 2 diabetes mellitus with other diabetic kidney complication; I10 Essential (primary) hypertension
CPT/HCPCS: 36415; 80053; 80061; 83036; 83721; 85025

== ENCOUNTER 2018-11-11 08:00 | Outpatient (CLI) | payer MEDICARE, OTHER ==
[2018-11-11 15:01] LABS: ALBUMIN 3.5 g/dL (3.2-5.5); ALBUMIN/GLOBULIN RATIO 1.1 (1.0-2.2); BILIRUBIN,TOTAL 0.6 mg/dL (0.2-1.0); CALCIUM 8.4 mg/dL (8.5-10.3); CREATININE 1.3 mg/dL (0.4-1.0); TOTAL PROTEIN 6.7 g/dL (6.7-8.2)
== END 2018-11-11 23:59 | disposition home or self-care (01) ==
LOC: LAB.WCP 08:00
PROVIDERS: ATTEND Family Medicine
DX: E11.29 Type 2 diabetes mellitus with other diabetic kidney complication (principal); R74.8 Abnormal levels of other serum enzymes
CPT/HCPCS: 36415; 80053

== ENCOUNTER 2019-01-12 09:10 | Outpatient (CLI) | payer MEDICARE, OTHER ==
[2019-01-12 09:28] LABS: BASOPHILS # (AUTO) 0.1 10^3/uL (0.0-0.1); BASOPHILS % (AUTO) 1.1 %; EOSINOPHILS # (AUTO) 0.1 10^3/uL (0.0-0.7); EOSINOPHILS % (AUTO) 1.8 %; HGB - HEMOGLOBIN 13.6 g/dL (12.0-16.0); LYMPHOCYTES # (AUTO) 1.4 10^3/uL (1.5-3.5); LYMPHOCYTES % (AUTO) 21.2 %; MEAN CORPUSCULAR HEMOGLOBIN 30.7 pg (27.0-31.0); MEAN CORPUSCULAR HGB CONC 33.5 g/dL (32.0-36.0); MEAN CORPUSCULAR VOLUME 91.9 fL (81.0-99.0); MEAN PLATELET VOLUME 7.3 fL (7.9-10.8); MONOCYTES # (AUTO) 0.4 10^3/uL (0.0-1.0); MONOCYTES % (AUTO) 5.6 %; NEUTROPHILS # (AUTO) 4.8 10^3/uL (1.5-6.6); NEUTROPHILS % (AUTO) 70.3 %; PLT - PLATELET COUNT 223 10^3/uL (130-450); RED BLOOD COUNT 4.41 10^6/uL (4.20-5.40); RED CELL DISTRIBUTION WIDTH 13.8 % (12.0-15.0); WHITE BLOOD COUNT 6.8 x10^3/uL (4.8-10.8)
[2019-01-12 09:46] LABS: CHOL/HDL RATIO 2.4 (<4.4); CHOLESTEROL 124 mg/dL; HDL CHOLESTEROL 52 mg/dL; LDL CHOLESTEROL,CALCULATED 51 mg/dL; VLDL CHOLESTEROL 21 mg/dL
[2019-01-12 09:50] LABS: HB2 TOTAL 14.9 g/dL; HEMOGLOBIN A1C 1.21 g/dL; HEMOGLOBIN A1C % 9.6 % (4.6-6.2)
== END 2019-01-12 09:11 | disposition home or self-care (01) ==
LOC: LAB 09:10
PROVIDERS: ATTEND Family Medicine
DX: I10 Essential (primary) hypertension (principal); E11.29 Type 2 diabetes mellitus with other diabetic kidney complication; E78.5 Hyperlipidemia, unspecified
CPT/HCPCS: 36415; 80061; 82043; 83036; 83721; 85025

== ENCOUNTER 2019-04-06 08:27 | Outpatient (CLI) | payer MEDICARE, OTHER ==
[2019-04-06 08:57] LABS: BASOPHILS # (AUTO) 0.1 10^3/uL (0.0-0.1); BASOPHILS % (AUTO) 0.8 %; EOSINOPHILS # (AUTO) 0.1 10^3/uL (0.0-0.7); EOSINOPHILS % (AUTO) 1.7 %; HGB - HEMOGLOBIN 13.3 g/dL (12.0-16.0); LYMPHOCYTES # (AUTO) 1.1 10^3/uL (1.5-3.5); LYMPHOCYTES % (AUTO) 15.7 %; MEAN CORPUSCULAR HEMOGLOBIN 30.5 pg (27.0-31.0); MEAN CORPUSCULAR HGB CONC 33.1 g/dL (32.0-36.0); MEAN CORPUSCULAR VOLUME 92.3 fL (81.0-99.0); MEAN PLATELET VOLUME 7.5 fL (7.9-10.8); MONOCYTES # (AUTO) 0.4 10^3/uL (0.0-1.0); MONOCYTES % (AUTO) 5.9 %; NEUTROPHILS # (AUTO) 5.5 10^3/uL (1.5-6.6); NEUTROPHILS % (AUTO) 75.9 %; PLT - PLATELET COUNT 225 10^3/uL (130-450); RED BLOOD COUNT 4.35 10^6/uL (4.20-5.40); RED CELL DISTRIBUTION WIDTH 13.8 % (12.0-15.0); WHITE BLOOD COUNT 7.3 x10^3/uL (4.8-10.8)
[2019-04-06 09:18] LABS: HB2 TOTAL 13.8 g/dL; HEMOGLOBIN A1C 1.26 g/dL; HEMOGLOBIN A1C % 10.5 % (4.6-6.2)
[2019-04-06 09:24] LABS: CHOL/HDL RATIO 2.4 (<4.4); CHOLESTEROL 114 mg/dL; HDL CHOLESTEROL 48 mg/dL; LDL CHOLESTEROL,CALCULATED 45 mg/dL; LDL/HDL RATIO 0.9 (<4.4); VLDL CHOLESTEROL 21 mg/dL
== END 2019-04-06 08:28 | disposition home or self-care (01) ==
LOC: LAB 08:27
PROVIDERS: ATTEND Family Medicine
DX: E78.5 Hyperlipidemia, unspecified (principal); E11.29 Type 2 diabetes mellitus with other diabetic kidney complication; I10 Essential (primary) hypertension; F32.9 Major depressive disorder, single episode, unspecified
CPT/HCPCS: 36415; 80061; 83036; 83721; 84443; 85025

== ENCOUNTER 2019-04-14 08:00 | Outpatient (CLI) | payer MEDICARE, OTHER | END 2019-04-14 08:01 | disposition home or self-care (01) | LOC: LAB.WCP 08:00 | PROVIDERS: ATTEND Family Medicine | DX: R31.9 Hematuria, unspecified (principal) | CPT/HCPCS: 87086 ==

== ENCOUNTER 2019-04-14 13:14 | Outpatient (CLI) | payer MEDICARE, OTHER ==
--- NOTE | 2019-04-14 14:41 | CT Report ---
Reason: HEMATURIA,NEPHROLITHIASIS Procedure Date: 04/14/2019 Accession Number: [id number] / [id number] Procedure: CT - Abdomen/Pelvis WO CPT Code: FULL RESULT: EXAM: CT ABDOMEN AND PELVIS (CT KUB) EXAM DATE: 04/14/2019 01:38 PM. CLINICAL HISTORY: HEMATURIA,NEPHROLITHIASIS. History of carcinoid pancreas COMPARISONS: ABDOMEN W/WO 06/25/2017 12:08 PM ABDOMEN W/WO 06/19/2018 9:05 AM. TECHNIQUE: Routine axial helical CT imaging was performed through the abdomen and pelvis without IV contrast. Reconstructions: Coronal and sagittal. In accordance with CT protocol optimization, one or more of the following dose reduction techniques were utilized for this exam: automated exposure control, adjustment of mA and/or KV based on patient size, or use of iterative reconstructive technique. FINDINGS: Lung Bases: Scarring left lung base Small hiatal hernia Right Kidney/Ureter: Areas of scarring. 5 mm nonobstructing calcification. No hydronephrosis, or hydroureter. No perinephric fat stranding. Left Kidney/Ureter: Smaller left kidney with areas of scarring. No stones, hydronephrosis, or hydroureter. No perinephric fat stranding. Other Solid Organs: Pancreatic head mass calcified 4.4 x 4 cm mass similar. Calcified granuloma liver. Noncontrast images of the solid organs are otherwise grossly unremarkable. Gallbladder/Bile Ducts: Cholelithiasis Peritoneal Cavity: Gastrohepatic lymph nodes, retroperitoneal and peripancreatic lymph nodes including 1.9 cm calcified lymph nodes, 2.7 cm lymph nodes in the duodenal sweep appear similar. No free fluid in the abdomen.. Infraumbilical fat-containing hernia. Bowel is grossly unremarkable. Pelvic Organs: Pelvic clips. No bladder stones or wall thickening. Noncontrast images of the visualized pelvic organs are unremarkable. Vasculature: Unremarkable. Other: Hemangioma at L3. DJD spine. IMPRESSION: 1. Right kidney 5 mm nonobstructing calcification. 2. Scarring in both kidneys with atrophic left kidney. 3. Pancreatic head mass with calcification similar with lymphadenopathy appearing similar noting this is a noncontrast study. 4. cholelithiasis. [facility]
== END 2019-04-14 13:15 | disposition home or self-care (01) ==
LOC: DI 13:14
PROVIDERS: ATTEND Family Medicine
DX: R31.9 Hematuria, unspecified (principal); N20.0 Calculus of kidney; N26.1 Atrophy of kidney (terminal); K86.9 Disease of pancreas, unspecified; R59.0 Localized enlarged lymph nodes; K80.20 Calculus of gallbladder without cholecystitis without obstruction
CPT/HCPCS: 74176; 87086

== ENCOUNTER 2019-04-21 08:00 | Outpatient (CLI) | payer MEDICARE, OTHER | END 2019-04-21 23:59 | disposition home or self-care (01) | LOC: LAB.R 08:00 | PROVIDERS: ATTEND Family Medicine | DX: R31.9 Hematuria, unspecified (principal) | CPT/HCPCS: 87086 ==

== ENCOUNTER 2019-05-11 08:00 | Outpatient (CLI) | payer MEDICARE, OTHER ==
[2019-05-11 19:36] LABS: BILIRUBIN,URINE NEGATIVE (NEGATIVE); GLUCOSE, URINE (UA) 500 mg/dL (NEGATIVE); KETONES,URINE (UA) NEGATIVE (NEGATIVE); LEUKOCYTE ESTERASE, URINE SMALL (NEGATIVE); NITRITE,URINE NEGATIVE (NEGATIVE); OCCULT BLOOD,URINE NEGATIVE (NEGATIVE); PROTEIN,URINE NEGATIVE (NEGATIVE); UROBILINOGEN,URINE 0.2 (NORMAL) E.U./dL (NORMAL)
[2019-05-11 19:44] LABS: BACTERIA,URINE Rare /HPF (None Seen); CLARITY,URINE CLEAR (CLEAR); RBC,URINE None Seen /HPF (0-5); SQUAMOUS EPITHELIAL CELL,UR MOD Squamous (<= Few)
== END 2019-05-11 23:59 | disposition home or self-care (01) ==
LOC: LAB.R 08:00
PROVIDERS: ATTEND Family Medicine
DX: R31.9 Hematuria, unspecified (principal)
CPT/HCPCS: 81001; 87086

== ENCOUNTER 2019-07-28 16:05 | Outpatient (CLI) | payer MEDICARE, OTHER | END 2019-07-28 23:59 | disposition home or self-care (01) | LOC: LAB.R 16:05 | PROVIDERS: ATTEND Family Medicine | DX: R31.9 Hematuria, unspecified (principal) | CPT/HCPCS: 87086 ==

== ENCOUNTER 2019-08-07 08:00 | Outpatient (CLI) | payer MEDICARE, OTHER ==
[2019-08-07 12:08] LABS: CALCIUM 8.5 mg/dL (8.5-10.3); CREATININE 1.3 mg/dL (0.4-1.0)
[2019-08-07 12:16] LABS: HB2 TOTAL 12.9 g/dL; HEMOGLOBIN A1C 1.11 g/dL
[2019-08-07 12:25] LABS: CREATININE,URINE 228.1 mg/dL; MICROALBUM/CREATININE RATIO,UR 118.4 ug/mg (<30.0)
== END 2019-08-07 23:59 | disposition home or self-care (01) ==
LOC: LAB.N 08:00
PROVIDERS: ATTEND Family Medicine
DX: E11.29 Type 2 diabetes mellitus with other diabetic kidney complication (principal)
CPT/HCPCS: 36415; 80048; 82043; 82570; 83036

== ENCOUNTER 2019-10-26 09:00 | Outpatient (CLI) | payer MEDICARE, OTHER | END 2019-10-26 23:59 | disposition home or self-care (01) | LOC: LAB.N 09:00 | PROVIDERS: ATTEND Family Medicine | DX: E55.9 Vitamin D deficiency, unspecified (principal) | CPT/HCPCS: 36415; 82306 ==

== ENCOUNTER 2019-12-11 08:55 | Outpatient (CLI) | payer MEDICARE, OTHER ==
[2019-12-11 12:38] LABS: HB2 TOTAL 12.9 g/dL; HEMOGLOBIN A1C 1.11 g/dL
[2019-12-11 13:23] LABS: ALBUMIN 3.3 g/dL (3.2-5.5); CALCIUM 8.9 mg/dL (8.5-10.3); CREATININE 1.1 mg/dL (0.4-1.0)
== END 2019-12-11 23:59 | disposition home or self-care (01) ==
LOC: LAB.N 08:55
PROVIDERS: ATTEND Family Medicine
DX: E55.9 Vitamin D deficiency, unspecified (principal); E11.22 Type 2 diabetes mellitus with diabetic chronic kidney disease; N18.3 Chronic kidney disease, stage 3 (moderate)
CPT/HCPCS: 36415; 80069; 82306; 83036

== ENCOUNTER 2020-01-11 23:00 | Emergency (ER) | payer MEDICARE, OTHER ==
[2020-01-12 00:17] LABS: BILIRUBIN,URINE NEGATIVE (NEGATIVE); GLUCOSE, URINE (UA) >=1000 mg/dL (NEGATIVE); KETONES,URINE (UA) TRACE mg/dL (NEGATIVE); LEUKOCYTE ESTERASE, URINE MODERATE (NEGATIVE); NITRITE,URINE NEGATIVE (NEGATIVE); OCCULT BLOOD,URINE TRACE-INTA (NEGATIVE); PH,URINE 5.5 PH (5.0-7.5); PROTEIN,URINE 30 mg/dL (NEGATIVE); UROBILINOGEN,URINE 0.2 (NORMAL) E.U./dL (NORMAL)
[2020-01-12 00:30] LABS: BACTERIA,URINE Moderate /HPF (None Seen); CLARITY,URINE SL. CLOUDY (CLEAR); RBC,URINE 0-5 /HPF (0-5); SQUAMOUS EPITHELIAL CELL,UR MOD Squamous (<= Few); YEAST,URINE PRESENT
[2020-01-12] MEDS ORDERED: ACETAMINOPHEN 325 MG TABLET PO STA (00:54)
--- NOTE | 2020-01-12 00:56 | ED Physician Documentation ---
PD HPI LOWER EXT INJURY - Stated complaint Stated Complaint: R ANKLE PAIN - Chief complaint Chief Complaint: Trauma Ext - History obtained from History obtained from: Patient - History of Present Illness PD HPI LOW EXT INJURY LOCATION: Right, Ankle Where injury occurred: Home Timing - onset: Enter time (22:00) Timing - details: Abrupt onset Pain level now: 3 Improved by: Rest Worsened by: Moving, Palpating Associated symptoms: Swelling Contributing factors: Prior ortho surgery Recently seen: Not recently seen - Additional information Additional information: approximately 10 PM tonight while walking at in her house, patient had sudden "popping" sensation right ankle and foot with pain, causing her to fall to ground. She c/o ongoing right ankle/foot pain Review of Systems Musculoskeletal: reports: Extremity pain, Joint pain, Extremity swelling, Joint swelling, Pain with weight bearing Neurologic: denies: Focal weakness, Numbness PD PAST MEDICAL HISTORY - Past Medical History Past Medical History: Yes Cardiovascular: Hypertension, High cholesterol Respiratory: None Neuro: None Endocrine/Autoimmune: Type 2 diabetes GI: GERD, Chronic diarrhea : Nocturia HEENT: None Psych: Depression Derm: None Other Past Medical History: tumor to pancreas - Past Surgical History Past Surgical History: Yes General: Appendectomy /[employer]: Hysterectomy - Present Medications Home Medications: Ambulatory Orders Medication Instructions Recorded Confirmed Atorvastatin Calcium [Lipitor] 40 mg PO DAILY 07/26/13 12/14/19 Cholecalciferol (Vitamin D3) 50,000 unit PO Q30D 07/26/13 12/14/19 [Vitamin D3] Insulin Aspart [NovoLOG] 5 - 13 unit SUBQ TIDWM 07/26/13 12/14/19 Insulin Glargine,Hum.rec.anlog 45 unit SQ DAILY 07/26/13 12/14/19 [Lantus] Sertraline [Zoloft] 50 mg PO DAILY 07/26/13 12/14/19 hydroCHLOROthiazide [Hydrodiuril] 50 mg PO DAILY 07/26/13 12/14/19 Multivitamin [Multivitamins] 1 each PO DAILY 10/31/16 12/14/19 Omeprazole 10 mg PO BID 10/31/16 12/14/19 Diphenoxylate/Atropine [Lomotil] 1 - 2 tab ORAL PRN PRN 06/10/17 12/14/19 Potassium Chloride 20 meq PO BID 06/24/17 12/14/19 Ipratropium/Albuterol Sulfate 1 amp INH QID 06/27/17 12/14/19 [Iprat-Albut 0.5-3(2.5) mg/3 ml] Saccharomyces Boulardii [Florastor] 250 mg PO DAILY #30 capsule 07/01/17 12/14/19 Tamsulosin [Flomax] 1 cap PO DAILY 05/04/19 12/14/19 Losartan Potassium 50 mg PO DAILY 08/24/19 12/14/19 Nitrofurantoin Monohyd/M-Cryst 100 mg PO BID #13 capsule 01/12/20 [Macrobid 100 mg Capsule] - Allergies Allergies/Adverse Reactions: Allergies Allergy/AdvReac Type Severity Reaction Status Date / Time No Known Drug Allergies Allergy Verified 12/14/19 13:22 - Social History Does the pt smoke?: No Smoking Status: Never smoker Does the pt drink ETOH?: Yes Does the pt have substance abuse?: No - Immunizations Immunizations are current?: No Immunizations: TDAP >10years/unknown - POLST Patient has POLST: No POLST Status: Full Code PD ED PE NORMAL - Vitals Vital signs reviewed: Yes - General General: Alert and oriented X 3, No acute distress, Well developed/nourished - Neuro Neuro: No motor deficit, No sensory deficit PD ED PE EXPANDED - Extremities Extremities: Tenderness, Limited ROM, Swelling, Other (TTP, swelling right ankle at lateral malleolus and right foot dorsal surface midfoot) Results - Vitals Vitals: Oxygen O2 Source Room air - Labs Labs: Laboratory Tests 01/11/20 23:54 Urine Color YELLOW Urine Clarity SL. CLOUDY Urine pH 5.5 Ur Specific [place] 1.025 Urine Protein 30 H Urine Glucose (UA) >=1000 H Urine Ketones TRACE Urine Occult Blood TRACE-INTA Urine Nitrite NEGATIVE Urine Bilirubin NEGATIVE Urine Urobilinogen 0.2 (NORMAL) Ur Leukocyte Esterase MODERATE H Urine RBC 0-5 Urine WBC 11-25 H Ur Squamous Epith Cells MOD Squamous H Urine Bacteria Moderate H Urine Yeast PRESENT Ur Microscopic Review INDICATED Urine Culture Comments NOT INDICATED - Rads (name of study) right ankle xrays Radiology: Prelim report reviewed, See rad report right foot xrays Radiology: Prelim report reviewed, See rad report PD MEDICAL DECISION MAKING - ED course Complexity details: considered differential, d/w patient Departure - Departure Disposition: 01 Home, Self Care Clinical Impression: UTI (urinary tract infection), Ankle sprain Condition: Good Instructions: ED Sprain Ankle W X Ray, ED UTI Cystitis Female Follow-Up: [facility] FROST MD [Primary Care Provider] - Prescriptions: Nitrofurantoin Monohyd/M-Cryst [Macrobid 100 mg Capsule] 100 mg PO BID #13 capsule Discharge Date/Time: 01/12/20 02:46
--- NOTE | 2020-01-12 01:46 | XRAY Report ---
Reason: injury, pain, tenderness Procedure Date: 01/12/2020 Accession Number: [id number] / [id number] Procedure: XR - Foot 3 View RT CPT Code: Final Report FULL RESULT: EXAMS: RIGHT FOOT AND ANKLE RADIOGRAPHY EXAM DATE: 01/12/2020 01:20 AM CLINICAL HISTORY: Injury, pain, tenderness. COMPARISON: None. TECHNIQUE: 3 views each foot and ankle. FINDINGS: Bones: Surgical screws in the distal tibia appear unremarkable. No acute fractures or bone lesions in the foot or ankle. Calcaneal plantar and Achilles tendon insertion spurs. Joints: Mild degenerative changes about the ankle. No foot/ankle malalignment seen. Soft Tissues: Normal. No soft tissue swelling. IMPRESSION: No acute osseous abnormality seen in the right foot or ankle. [facility]
--- NOTE | 2020-01-12 01:47 | XRAY Report ---
Reason: injury, pain, tenderness Procedure Date: 01/12/2020 Accession Number: [id number] / [id number] Procedure: XR - Ankle 3 View RT CPT Code: Final Report FULL RESULT: EXAMS: RIGHT FOOT AND ANKLE RADIOGRAPHY EXAM DATE: 01/12/2020 01:20 AM CLINICAL HISTORY: Injury, pain, tenderness. COMPARISON: None. TECHNIQUE: 3 views each foot and ankle. FINDINGS: Bones: Surgical screws in the distal tibia appear unremarkable. No acute fractures or bone lesions in the foot or ankle. Calcaneal plantar and Achilles tendon insertion spurs. Joints: Mild degenerative changes about the ankle. No foot/ankle malalignment seen. Soft Tissues: Normal. No soft tissue swelling. IMPRESSION: No acute osseous abnormality seen in the right foot or ankle. [facility]
[2020-01-12] MEDS ORDERED: NITROFURANTOIN MACRO 100 MG CAPSULE PO STA (02:41)
[2020-01-12 02:47] VITALS: BP 173/57
== END 2020-01-12 02:46 | disposition home or self-care (01) ==
LOC: ED 23:00
DX: S93.401A Sprain of unspecified ligament of right ankle, initial encounter (principal); X50.1XXA Overexertion from prolonged static or awkward postures, initial encounter; Y93.01 Activity, walking, marching and hiking; Y92.009 Unspecified place in unspecified non-institutional (private) residence as the place of occurrence of the external cause; N39.0 Urinary tract infection, site not specified; I10 Essential (primary) hypertension; E11.9 Type 2 diabetes mellitus without complications; Z79.4 Long term (current) use of insulin
CPT/HCPCS: 81001; 81003; 87086; 99283; 99284

== ENCOUNTER 2020-04-20 16:53 | Outpatient (CLI) | payer MEDICARE, OTHER ==
--- NOTE | 2020-04-20 16:45 | XRAY Report ---
Reason: RIGHT FOOT PAIN Procedure Date: 04/20/2020 Accession Number: [id number] / [id number] Procedure: WCP - Foot 2 View RT CPT Code: Final Report FULL RESULT: EXAM: RIGHT FOOT RADIOGRAPHY EXAM DATE: 04/20/2020 10:30 AM. CLINICAL HISTORY: Chronic right foot pain. COMPARISON: FOOT 3 VIEW RT 01/12/2020 1:01 AM. TECHNIQUE: 2 views. FINDINGS: Bones: No acute fracture or bony lesion. Mild degenerative spurring. No bony erosions. Posterior and plantar calcaneal spurs. Changes again seen from internal fixation of the distal right tibia. Joints: DIP and PIP and first metatarsophalangeal joint as well as right midfoot joint degenerative changes are seen. No dislocation. Soft Tissues: Unremarkable. IMPRESSION: 1. Degenerative changes of the right foot without significant change. 2. No acute osseous abnormalities. [facility]
== END 2020-04-20 23:59 | disposition home or self-care (01) ==
LOC: DI.WCP 16:53
PROVIDERS: ATTEND Family Medicine
DX: M19.071 Primary osteoarthritis, right ankle and foot (principal)

== ENCOUNTER 2020-09-09 10:40 | Outpatient (CLI) | payer MEDICARE, OTHER ==
--- NOTE | 2020-09-09 16:13 | XRAY Report ---
PROCEDURE: Hip w/Pelvis 2-3V LT INDICATIONS: HIP JOINT PAIN, LEFT TECHNIQUE: AP pelvis with lateral view(s) of the left hip(s). COMPARISON: X-ray hip/pelvis 07/07/2018 FINDINGS: Bones: No fractures or dislocations. Pelvic ring appears intact. No suspicious bony lesions. Mode rate bilateral hip joint degenerative narrowing. Small periarticular osteophytes are present. No lynette s erosions. Degenerative changes are present within the lower lumbar spine. Soft tissues: The visualized bowel gas pattern is normal. No suspicious soft tissue calcifications. IMPRESSION: Osteoarthritic changes within the hips bilaterally relatively stable compared to prior e xam. Reviewed by: No Power MD on 09/09/2020 4:12 PM PDT Approved by: No Power MD on 09/09/2020 4:12 PM PDT Station ID: [id number]
== END 2020-09-09 10:41 | disposition home or self-care (01) ==
LOC: DI 10:40
PROVIDERS: ATTEND Family Medicine
DX: M16.0 Bilateral primary osteoarthritis of hip (principal)

== ENCOUNTER 2020-10-10 18:24 | Outpatient (CLI) | payer MEDICARE, OTHER | END 2020-10-10 18:25 | disposition home or self-care (01) | LOC: COV 18:24 | PROVIDERS: ATTEND Family Medicine | DX: Z20.828 Contact with and (suspected) exposure to other viral communicable diseases (principal) ==

== ENCOUNTER 2020-12-30 08:00 | Outpatient (CLI) | payer MEDICARE, OTHER ==
[2020-12-30 11:43] LABS: BASOPHILS % (AUTO) 0.7 %; EOSINOPHILS # (AUTO) 0.2 10^3/uL (0.0-0.7); EOSINOPHILS % (AUTO) 2.5 %; HGB - HEMOGLOBIN 13.2 g/dL (12.0-16.0); LYMPHOCYTES # (AUTO) 1.5 10^3/uL (1.5-3.5); LYMPHOCYTES % (AUTO) 25.1 %; MEAN CORPUSCULAR HEMOGLOBIN 31.3 pg (27.0-31.0); MEAN CORPUSCULAR HGB CONC 31.7 g/dL (32.0-36.0); MEAN CORPUSCULAR VOLUME 98.6 fL (81.0-99.0); MEAN PLATELET VOLUME 9.7 fL (7.9-10.8); MONOCYTES # (AUTO) 0.4 10^3/uL (0.0-1.0); MONOCYTES % (AUTO) 7.3 %; NEUTROPHILS # (AUTO) 3.9 10^3/uL (1.5-6.6); NEUTROPHILS % (AUTO) 64.1 %; PLT - PLATELET COUNT 211 10^3/uL (130-450); RED BLOOD COUNT 4.22 10^6/uL (4.20-5.40); RED CELL DISTRIBUTION WIDTH 13.6 % (12.0-15.0)
[2020-12-30 12:31] LABS: ALBUMIN 3.3 g/dL (3.2-5.5); ALKALINE PHOSPHATASE 112 IU/L (42-121); ALT ALANINE AMINOTRANSFERASE 20 IU/L (10-60); AST ASPARTATE AMINOTRANSFERASE 26 IU/L (10-42); BILIRUBIN,TOTAL 0.6 mg/dL (0.2-1.0); BUN - BLOOD UREA NITROGEN 19 mg/dL (6-20); CALCIUM 8.8 mg/dL (8.5-10.3); CARBON DIOXIDE - CO2 32 mmol/L (21-32); CHLORIDE 104 mmol/L (101-111); CHOL/HDL RATIO 2.4 (<4.4); CHOLESTEROL 120 mg/dL; CREATININE 1.1 mg/dL (0.4-1.0); GLUCOSE 110 mg/dL (70-100); HDL CHOLESTEROL 50 mg/dL; LDL CHOLESTEROL,CALCULATED 45 mg/dL; LDL/HDL RATIO 0.9 (<4.4); TOTAL PROTEIN 6.5 g/dL (6.7-8.2); VLDL CHOLESTEROL 25 mg/dL
[2020-12-30 12:37] LABS: CREATININE,URINE 91.4 mg/dL; MICROALBUMIN,URINE 18.1 mg/dL (0-300.0)
== END 2020-12-30 23:59 ==
LOC: LAB.WCP 08:00
PROVIDERS: ATTEND Internal Medicine
DX: R74.8 Abnormal levels of other serum enzymes (principal); E78.5 Hyperlipidemia, unspecified; N18.30 Chronic kidney disease, stage 3 unspecified; I49.9 Cardiac arrhythmia, unspecified
CPT/HCPCS: 36415; 80053; 80061; 82043; 82570; 83721; 84443; 85025

== ENCOUNTER 2021-02-06 09:44 | Outpatient (CLI) | payer MEDICARE, OTHER ==
[2021-02-06 11:58] LABS: ESTIMATED AVERAGE GLUCOSE 189 mg/dL (70-100); HEMOGLOBIN A1c% 8.2 % (4.27-6.07)
== END 2021-02-06 09:45 | disposition home or self-care (01) ==
LOC: LAB 09:44
PROVIDERS: ATTEND Internal Medicine
DX: E11.29 Type 2 diabetes mellitus with other diabetic kidney complication (principal)
CPT/HCPCS: 36415; 83036

== ENCOUNTER 2021-03-30 08:00 | Outpatient (CLI) | payer MEDICARE, OTHER ==
[2021-03-30 12:17] LABS: ESTIMATED AVERAGE GLUCOSE 192 mg/dL (70-100); HEMOGLOBIN A1c% 8.3 % (4.27-6.07)
== END 2021-03-30 23:59 | disposition home or self-care (01) ==
LOC: LAB.WCP 08:00
PROVIDERS: ATTEND Internal Medicine
DX: E11.29 Type 2 diabetes mellitus with other diabetic kidney complication (principal)
CPT/HCPCS: 36415; 83036

== ENCOUNTER 2021-04-01 15:36 | Outpatient (CLI) | payer MEDICARE, OTHER | END 2021-04-01 23:59 | disposition short-term general hospital (02) | LOC: EMS 15:36 | DX: R07.9 Chest pain, unspecified (principal); M79.602 Pain in left arm; M54.9 Dorsalgia, unspecified; R11.2 Nausea with vomiting, unspecified; R19.7 Diarrhea, unspecified | CPT/HCPCS: A0425; A0427 ==

== ENCOUNTER 2021-04-18 13:08 | Outpatient (CLI) | payer MEDICARE, OTHER ==
[~2021-04-18 13:08] MED LIST: BUFFERED LIDOCAINE 10 ML SYRINGE ONE; ROPIVACAINE 0.5% PF 20 ML AMPULE ONE; TRIAMCINOLONE 40 MG/ML VIAL ONE
[2021-04-18] MEDS ORDERED: BUFFERED LIDOCAINE 10 ML SYRINGE ONE (13:15)
[2021-04-18] MEDS ORDERED: ROPIVACAINE 0.5% PF 20 ML AMPULE ONE (13:15)
[2021-04-18] MEDS ORDERED: TRIAMCINOLONE 40 MG/ML VIAL ONE (13:16)
[2021-04-18] MEDS ORDERED: TRIAMCINOLONE 40 MG/ML VIAL IM ONE (14:38)
[2021-04-18] MEDS ORDERED: ROPIVACAINE 0.5% PF 20 ML AMPULE IU ONE (14:38)
[2021-04-18] MEDS ORDERED: iohexoL-240 20 ML VIAL IVP ONE (14:39)
[2021-04-18] MEDS ORDERED: BUFFERED LIDOCAINE 10 ML SYRINGE IU ONE (14:41)
--- NOTE | 2021-04-18 16:47 | XRAY Report ---
PROCEDURE: Inj/Aspiration Major Joint INDICATIONS: OSTEOARTHRITIS HIPS CONTRAST: CONTRAST: omnipaque 240 FLUORO TIME: FLUORO TIME: 0:36 min and NUMBER IMAGES: 2 TECHNIQUE: The indications, alternatives, benefits, risks, and complications of the procedure were explained to the patient. Written informed consent was obtained and placed in the chart. The patient was placed in an appropriate position on the fluoroscopy table, and a site was chosen for percutaneous access un yolis fluoroscopic guidance. Local anesthetic was administered using a 1% lidocaine solution. A hypod ermic or spinal needle was then used to access the symptomatic joint. Intra-articular location of th e needle tip was confirmed by injecting a small amount of contrast, followed by steroid administratio n. The needle was then withdrawn, and a bandage applied to the puncture site. FINDINGS: Joint injected: Left hip joint Medications injected: 1 mL of 40 mg/mL Kenalog and 3 mL of 0.5% Ropivacaine mixture. Complications: None. The patient reported 4/10 hip pain prior to the procedure. This improved to 0/10 immediately followin g the procedure. IMPRESSION: Successful fluoroscopically guided administration of steroid and anaesthetic solution into the left h ip joint joint. Reviewed by: Dejuan Gamez MD on 04/18/2021 4:46 PM PDT Approved by: Dejuan Gamez MD on 04/18/2021 4:46 PM PDT Station ID: [id number]
== END 2021-04-18 13:09 | disposition home or self-care (01) ==
LOC: DI 13:08
PROVIDERS: ATTEND Physician Assistant
DX: M16.0 Bilateral primary osteoarthritis of hip (principal)
CPT/HCPCS: 20610; Q9966

== ENCOUNTER 2021-04-19 08:00 | Outpatient (CLI) | payer MEDICARE, OTHER ==
[2021-04-19 18:37] LABS: BASOPHILS % (AUTO) 0.1 %; HCT - HEMATOCRIT 35.5 % (37.0-47.0); HGB - HEMOGLOBIN 11.2 g/dL (12.0-16.0); LYMPHOCYTES # (AUTO) 0.5 10^3/uL (1.5-3.5); LYMPHOCYTES % (AUTO) 6.8 %; MEAN CORPUSCULAR HEMOGLOBIN 32.6 pg (27.0-31.0); MEAN CORPUSCULAR HGB CONC 31.5 g/dL (32.0-36.0); MEAN CORPUSCULAR VOLUME 103.2 fL (81.0-99.0); MEAN PLATELET VOLUME 10.5 fL (7.9-10.8); MONOCYTES # (AUTO) 0.4 10^3/uL (0.0-1.0); MONOCYTES % (AUTO) 6.4 %; NEUTROPHILS % (AUTO) 86.4 %; PLT - PLATELET COUNT 391 10^3/uL (130-450); RED BLOOD COUNT 3.44 10^6/uL (4.20-5.40); RED CELL DISTRIBUTION WIDTH 17.9 % (12.0-15.0); WHITE BLOOD COUNT 6.9 x10^3/uL (4.8-10.8)
[2021-04-19 18:41] LABS: ESTIMATED AVERAGE GLUCOSE 148 mg/dL (70-100); HEMOGLOBIN A1c% 6.8 % (4.27-6.07)
[2021-04-19 18:53] LABS: ALBUMIN 2.9 g/dL (3.2-5.5); ALBUMIN/GLOBULIN RATIO 0.7 (1.0-2.2); ALKALINE PHOSPHATASE 1206 IU/L (42-121); ALT ALANINE AMINOTRANSFERASE 108 IU/L (10-60); AST ASPARTATE AMINOTRANSFERASE 158 IU/L (10-42); BILIRUBIN,TOTAL 8.9 mg/dL (0.2-1.0); BUN - BLOOD UREA NITROGEN 27 mg/dL (6-20); CALCIUM 8.7 mg/dL (8.5-10.3); CARBON DIOXIDE - CO2 27 mmol/L (21-32); CHLORIDE 93 mmol/L (101-111); CHOL/HDL RATIO 63.4 (<4.4); CHOLESTEROL 507 mg/dL; GFR - MDRD 53 (>89); GLUCOSE 352 mg/dL (70-100); HDL CHOLESTEROL 8 mg/dL; LDL CHOLESTEROL,CALCULATED 454 mg/dL; LDL/HDL RATIO 56.8 (<4.4); POTASSIUM 4.2 mmol/L (3.5-5.0); SODIUM 130 mmol/L (135-145); TOTAL PROTEIN 6.8 g/dL (6.7-8.2); TRIGLYCERIDES 223 mg/dL; VLDL CHOLESTEROL 45 mg/dL
[2021-04-19 18:58] LABS: THYROID STIMULATING HORMONE 0.65 uIU/mL (0.34-5.60)
== END 2021-04-19 23:59 | disposition home or self-care (01) ==
LOC: LAB.WCP 08:00
PROVIDERS: ATTEND Nurse Practitioner Family
DX: E11.3292 Type 2 diabetes mellitus with mild nonproliferative diabetic retinopathy without macular edema, left eye (principal); K80.20 Calculus of gallbladder without cholecystitis without obstruction; E78.5 Hyperlipidemia, unspecified; I10 Essential (primary) hypertension
CPT/HCPCS: 36415; 80053; 80061; 83036; 83721; 84443; 85025

== ENCOUNTER 2021-05-11 11:48 | Outpatient (CLI) | payer MEDICARE, OTHER ==
[2021-05-11 12:35] LABS: ALBUMIN 3.1 g/dL (3.2-5.5); CALCIUM 8.8 mg/dL (8.5-10.3); CREATININE 1.1 mg/dL (0.4-1.0); PHOSPHORUS 2.9 mg/dL (2.5-4.6); POTASSIUM 4.3 mmol/L (3.5-5.0)
== END 2021-05-11 11:49 | disposition home or self-care (01) ==
LOC: LAB 11:48
PROVIDERS: ATTEND Internal Medicine Gastroenterology
DX: R74.8 Abnormal levels of other serum enzymes (principal)
CPT/HCPCS: 36415; 80069

== ENCOUNTER 2021-05-15 08:00 | Outpatient (CLI) | payer MEDICARE, OTHER | END 2021-05-15 23:59 | disposition home or self-care (01) | LOC: LAB 08:00 | PROVIDERS: ATTEND Internal Medicine Gastroenterology | DX: R74.8 Abnormal levels of other serum enzymes (principal) | CPT/HCPCS: 36415; 82248 ==

== ENCOUNTER 2021-05-18 10:30 | Outpatient (CLI) | payer MEDICARE, OTHER ==
[2021-05-18 11:04] VITALS: BP 114/73
--- NOTE | 2021-05-18 11:04 | SLEEP CARE CONSULTATION ---
Information from patient questionnaire entered by Piedad Morrison. I have reviewed and concur with the information entered by Piedad Morrison. This document represents the service I personally performed and the decisions made by me, Maribel Benedict ARNP. History of Present Illness Service Date and Time: 05/18/2021 1030 Reason for Visit: New patient, Previously diagnosed sleep apnea (moderate - AHI - 26.4), Re-establish care (last seen 2015) Chief Complaint: reports: Unrefreshed sleep, Snoring, Excessive daytime sleepiness, Observed pauses in breathing, Fatigue Date of Onset: years Usual bedtime: 9 pm Time it takes to fall asleep: no time at all Snores at night: Yes Observed to quit breathing while asleep: Yes Sleeps alone due to snoring: No Number of times waking at night: 3 Reasons for waking at night: reports: Bathroom. denies: Choking, Snoring, G asping for air Toss, Turn, or Twitch while sleeping: Yes Recalls having dreams: Yes Usually gets out of bed at: 8 am Feels refreshed in the morning: No Morning headache: No Sleepy or fatigued during the day: Yes Ever fallen asleep while driving: No Takes day naps: Yes (sometimes) Dreams during day naps: No Prior sleep studies: Yes Year and Where: 2014 - [facility]; - in [place] or [place], unsure Type of Sleep Study: Polysomnography Additional HPI information: DEBBIE WALLS was diagnosed to have moderate, AHI 26.4, obstructive sleep apnea-hypopnea syndrome and returns today to re-establish care for CPAP therapy. Patient has not been using CPAP for about a year. She was diagnosed in 2014 and was last seen in 2016. She was diagnosed with pancreatic tumor and has been under treatment for last 5 years. - Parasomnia Symptoms Ever been unable to move upon waking from sleep: No Walks in sleep: No Talks in sleep: No Ever acted out dreams in sleep: No Ever felt weak in the knees when startled or emotional: No Bothered by creepy, crawly, restless sensations in legs: Yes (always at night) Problems with memory or concentration: Yes (both) Subjective Initial [place] Sleepiness Scale score: 11 (in 2014) Current [place] Sleepiness Scale score: 5 Past Medical History Past Medical History: reports: Diabetes, Depression, GERD, Other (cancer, panc reatic tumor; gallbladder removed last month) Social History The patient's occupation is a Retired. Patient is / and lives in [place]. Have you smoked in the past 12 months: No Alcohol use: No Caffeine use: Yes Caffeine amount and frequency: 1 Pepsi a day Family History Family history of sleep disordered breathing: Yes Family Hx Sleep Apnea: Other: Snoring (3 children), Sleep apnea - Treated (2 sons) Allergies and Home Medications Drug allergies reviewed: Yes (NKDA) Home medication list reviewed: Yes Allergy and home medication list: see list in chart Review of Systems Cardiovascular: reports: high blood pressure, leg or foot swelling Respiratory: reports: shortness of breath Gastrointestinal: reports: difficulty swallowing, diarrhea Urinary: reports: frequency Psychiatric: reports: depression Ear/Nose/Throat: reports: dry mouth/throat Musculoskeletal: reports: joint pain, joint swelling Physical Exam Blood Pressure: 114/73 Cuff size: wrist Heart Rate: 89 O2 Saturation: 98 Height: 5 ft Weight: 180 lb Weight change since last visit: 25 lb loss Body Mass Index: 35.2 BMI Classification: Obese Heart: regular rate and rhythm Lungs: clear bilaterally Impression and Plan 1. Suspected Obstructive Sleep Apnea-Hypopnea Syndrome, as previously diagnosed and as suggested by a history of loud and irregular snoring, observed cessation of breath while asleep, unrefreshed sleep, cognitive impairment, and excessive daytime sleepiness. The patient took a break from her CPAP while dealing with pancreatic cancer. She has not been using it for the last year. Patient has lost 25 pounds since her last visit. Patient would like to restart her CPAP therapy. I recommend proceeding to polysomnography to confirm the diagnosis and to assess severity and obtained agreement to proceed. The pathophysiology of obstructive sleep apnea-hypopnea syndrome was discussed with the patient and health risks of cardiovascular and cerebrovascular disease if not treated. Risks of drowsy driving discussed in detail and patient advised to avoid long distance driving and to tube puller at the first sign of drowsiness. Patient agreed to plan. * Schedule polysomnography +- manual CPAP titration study and return in 1-2 weeks after the study to discuss result and initiate therapy. * Avoid long distance driving or driving when feeling sleepy. * Avoid alcohol, sedative and muscle relaxant around bedtime. * Continue to lose weight. * Review instructions provided by trained office staff on how to prepare for the sleep study. * Return for follow-up after sleep study completed. Counseling Topics: Weight loss health impact Visit Type: In Office Time Spent with Patient (minutes): 31 Provider Statement: I spent 100% of the Face to Face Visit with the patient with greater than 50% spent counseling the patient and coordination of care.
== END 2021-05-18 10:31 | disposition home or self-care (01) ==
LOC: SC 10:30
PROVIDERS: ATTEND Nurse Practitioner Family
DX: G47.33 Obstructive sleep apnea (adult) (pediatric) (principal); E66.9 Obesity, unspecified; Z68.35 Body mass index [BMI] 35.0-35.9, adult
CPT/HCPCS: 99203; G0463; 99212

== ENCOUNTER 2021-05-19 08:00 | Outpatient (CLI) | payer MEDICARE, OTHER | END 2021-05-19 23:59 | disposition home or self-care (01) | LOC: LAB.WCP 08:00 | PROVIDERS: ATTEND Nurse Practitioner Family | DX: N39.0 Urinary tract infection, site not specified (principal) | CPT/HCPCS: 87077; 87086; 87181 ==

== ENCOUNTER 2021-05-23 09:31 | Outpatient (CLI) | payer MEDICARE, OTHER | END 2021-05-23 09:32 | disposition home or self-care (01) | LOC: SC 09:31 | PROVIDERS: ATTEND Nurse Practitioner Family | DX: G47.33 Obstructive sleep apnea (adult) (pediatric) (principal); R09.02 Hypoxemia; E66.9 Obesity, unspecified; Z68.35 Body mass index [BMI] 35.0-35.9, adult | CPT/HCPCS: G0399 ×2; 95806 ==

== ENCOUNTER 2021-05-30 08:00 | Outpatient (CLI) | payer MEDICARE, OTHER ==
[2021-05-30 18:06] LABS: BASOPHILS # (AUTO) 0.1 10^3/uL (0.0-0.1); BASOPHILS % (AUTO) 0.9 %; EOSINOPHILS # (AUTO) 0.1 10^3/uL (0.0-0.7); EOSINOPHILS % (AUTO) 1.7 %; HCT - HEMATOCRIT 40.6 % (37.0-47.0); HGB - HEMOGLOBIN 13.7 g/dL (12.0-16.0); LYMPHOCYTES # (AUTO) 1.1 10^3/uL (1.5-3.5); LYMPHOCYTES % (AUTO) 19.4 %; MEAN CORPUSCULAR HEMOGLOBIN 33.7 pg (27.0-31.0); MEAN CORPUSCULAR HGB CONC 33.7 g/dL (32.0-36.0); MEAN CORPUSCULAR VOLUME 99.8 fL (81.0-99.0); MEAN PLATELET VOLUME 10.1 fL (7.9-10.8); MONOCYTES # (AUTO) 0.4 10^3/uL (0.0-1.0); MONOCYTES % (AUTO) 8.1 %; NEUTROPHILS # (AUTO) 3.8 10^3/uL (1.5-6.6); NEUTROPHILS % (AUTO) 69.7 %; PLT - PLATELET COUNT 214 10^3/uL (130-450); RED BLOOD COUNT 4.07 10^6/uL (4.20-5.40); RED CELL DISTRIBUTION WIDTH 12.6 % (12.0-15.0); WHITE BLOOD COUNT 5.4 x10^3/uL (4.8-10.8)
[2021-05-30 18:09] LABS: ALBUMIN 3.2 g/dL (3.2-5.5); BILIRUBIN,TOTAL 1.3 mg/dL (0.2-1.0); CALCIUM 8.1 mg/dL (8.5-10.3); CREATININE 1.1 mg/dL (0.4-1.0); POTASSIUM 4.4 mmol/L (3.5-5.0); TOTAL PROTEIN 6.3 g/dL (6.7-8.2)
[2021-05-30 18:18] LABS: BILIRUBIN,DIRECT 0.7 mg/dL (0.1-0.5); BILIRUBIN,TOTAL 1.4 mg/dL (0.2-1.0); TOTAL PROTEIN 6.2 g/dL (6.7-8.2)
[2021-05-30 18:19] LABS: MICROALBUM/CREATININE RATIO,UR 183.3 ug/mg (<30.0)
== END 2021-05-30 23:59 | disposition home or self-care (01) ==
LOC: LAB.WCP 08:00
PROVIDERS: ATTEND Internal Medicine Nephrology
DX: N18.31 Chronic kidney disease, stage 3a (principal); K80.20 Calculus of gallbladder without cholecystitis without obstruction
CPT/HCPCS: 36415; 80053; 80076; 82043; 82248; 82570; 83970; 85025

== ENCOUNTER 2021-06-06 16:08 | Outpatient (CLI) | payer MEDICARE, OTHER ==
--- NOTE | 2021-06-06 17:01 | SLEEP CARE CONSULTATION ---
Information from patient questionnaire entered by Piedad Morrison. I have reviewed and concur with the information entered by Piedad Morrison. This document represents the service I personally performed and the decisions made by , Maribel Benedict ARNP. History of Present Illness Service Date and Time: 06/06/2021 1608 Initial [place] Sleepiness Scale score: 11 (in 2014) Current [place] Sleepiness Scale score: 14 Additional HPI information: DEBBIE WALLS returns with Mirian, daughter in law, for follow up and results of the recently performed home sleep study. I explained the pathophysiology behind obstructive sleep apnea. We then spent quite a bit of time discussing different treatment options. For mild obstructive sleep apnea, surgery and oral appliance are alternatives to nasal CPAP therapy but in moderate or severe cases, nasal CPAP is the most effective and reliable treatment. I reviewed the impact of weight changes on sleep apnea and strongly recommended losing weight. After some discussion, the patient opted to go with the nasal CPAP therapy. Nasal autoCPAP set at 4-15 cmH20 will be ordered with rationale explained. A manual titration study will be ordered if unable to find optimal pressure with office adjustments. I explained how CPAP machine works with sample devices [employer]ium Dreamstation and [employer] [id number] and what to expect when using the machine. Using CPAP every night in order to get used to it was emphasized. Patient advised to put CPAP mask on before getting into bed so as not to fall asleep without CPAP. The patient was instructed to call the CPAP supplier to discuss any mechanical problem that may occur. If the mask given is uncomfortable or is difficult to keep on through the night even with adjustment, contact the CPAP supplier as many will replace with another mask style if notified before 30 days. If snoring or perceives is not getting enough air or too much air from the machine, notify this office. AASM patient education PAP tips reviewed and given to patient. Patient does not drink alcohol. Patient was cautioned about risks of drowsy driving until sleepiness symptoms resolve. Sleep Study - Results Type of Sleep Study: Home sleep study Prior sleep studies: Yes Year and Where: 2014(PSG) - [facility]; 2007ish - unsure Polysomnography/Home Sleep Study results: Physician Impression: The quality of the study is good. The length of the study is adequate (> 240 minutes). Please also see the tabulated and graphic data. 1. Obstructive Sleep Apnea-Hypopnea (ICD-10 G47.33), severe, with an AHI of 51.1 /hr and carol SaO2 of 68%. During the study, the patient had 193 apneas (191 obstructive, 1 central, 1 mixed) and 91 hypopneas. The longest episode lasted 71.5 seconds. The respiratory events occurred independently of sleep stage and body position (supine AHI was 41.0 and non-supine, 63.10). 2. Hypoxemia (ICD-10 R09.02), moderate, with the lowest oxygen saturation of 68 % and 128.6 minutes with SaO2 under 90%. Baseline oxygen saturation was normal (Average oxygen saturation was 91%). Allergies and Home Medications Home medication list reviewed: Yes (Antibiotic for UTI) Review of Systems Review of systems same as previous: No (UTI) Physical Exam Heart Rate: 61 O2 Saturation: 94 Height: 5 ft Weight: 182 lb Body Mass Index: 35.5 BMI Classification: Obese Impression and Plan 1. Obstructive Sleep Apnea-Hypopnea Syndrome, severe, with lowest oxygen saturation of 68%. Obviously this is the cause of the patients symptoms of unrefreshed sleep, and excessive daytime sleepiness. Positive pressure therapy could benefit diabetes, depression, gastric reflux. As mentioned above, the patient will be started on nasal autoCPAP therapy with pressure set at 4-15 cmH2 O. Compliance guidelines also reviewed. A copy of compliance guidelines will be given for reference at check out. * Nasal auto CPAP therapy, pressure at 4-15 cm H2O. * Attempt to lose weight. * Avoid alcohol consumption near bedtime. * Avoid supine sleep until using CPAP. * The patient is again cautioned about driving until sleepiness completely resolves. * Return one month after CPAP obtained. I will assess response to therapy and compliance at that time. Counseling Topics: Weight loss health impact Visit Type: In Office Other Participants: Other (Daughter in law) Time Spent with Patient (minutes): 23 Provider Statement: I spent 100% of the Face to Face Visit with the patient with greater than 50% spent counseling the patient and coordination of care.
== END 2021-06-06 16:09 | disposition home or self-care (01) ==
LOC: SC 16:08
PROVIDERS: ATTEND Nurse Practitioner Family
DX: G47.33 Obstructive sleep apnea (adult) (pediatric) (principal); E66.9 Obesity, unspecified; Z68.35 Body mass index [BMI] 35.0-35.9, adult
CPT/HCPCS: 99213; G0463; 99212

== ENCOUNTER 2021-06-27 08:02 | Outpatient (CLI) | payer MEDICARE, OTHER ==
--- NOTE | 2021-06-27 11:27 | XRAY Report ---
PROCEDURE: Hip w/Pelvis 1V LT INDICATIONS: OSTEOARTHRITIS, L HIP TECHNIQUE: AP pelvis with lateral view(s) of the left hip(s). COMPARISON: None. FINDINGS: Bones: Mild symmetric appearing bilateral hip joint osteoarthritic changes are seen. No fractures or dislocations. No evidence of avascular necrosis of femoral head. Pelvic ring appears intact. No hays spicious bony lesions. Degenerative disc disease in visualized lower lumbar spine is seen. Soft tissues: The visualized bowel gas pattern is normal. No suspicious soft tissue calcifications. Surgical clips are noted in left hemipelvis. IMPRESSION:. Mild to moderate symmetric appearing bilateral hip joint osteoarthritis. No hip fracture or dislocation. No evidence of avascular necrosis of femoral head. Degenerative disc disease in lowe r lumbar spine. Reviewed by: Farhan Barajas MD on 06/27/2021 11:25 AM PDT Approved by: Farhan Barajas MD on 06/27/2021 11:25 AM PDT Station ID: [id number]
== END 2021-06-27 23:59 | disposition home or self-care (01) ==
LOC: DI.N 08:02
PROVIDERS: ATTEND Physician Assistant
DX: M16.0 Bilateral primary osteoarthritis of hip (principal); M47.816 Spondylosis without myelopathy or radiculopathy, lumbar region

== ENCOUNTER 2021-07-05 15:08 | Outpatient (CLI) | payer MEDICARE, OTHER ==
[2021-07-05 17:49] LABS: BASOPHILS % (AUTO) 0.6 %; EOSINOPHILS # (AUTO) 0.1 10^3/uL (0.0-0.7); EOSINOPHILS % (AUTO) 1.4 %; HCT - HEMATOCRIT 39.8 % (37.0-47.0); HGB - HEMOGLOBIN 13.2 g/dL (12.0-16.0); LYMPHOCYTES # (AUTO) 1.5 10^3/uL (1.5-3.5); LYMPHOCYTES % (AUTO) 24.4 %; MEAN CORPUSCULAR HGB CONC 33.2 g/dL (32.0-36.0); MEAN CORPUSCULAR VOLUME 96.4 fL (81.0-99.0); MEAN PLATELET VOLUME 9.8 fL (7.9-10.8); MONOCYTES # (AUTO) 0.4 10^3/uL (0.0-1.0); NEUTROPHILS # (AUTO) 4.2 10^3/uL (1.5-6.6); NEUTROPHILS % (AUTO) 66.4 %; PLT - PLATELET COUNT 238 10^3/uL (130-450); RED BLOOD COUNT 4.13 10^6/uL (4.20-5.40); RED CELL DISTRIBUTION WIDTH 12.2 % (12.0-15.0); WHITE BLOOD COUNT 6.3 x10^3/uL (4.8-10.8)
[2021-07-05 17:52] LABS: ALBUMIN 3.4 g/dL (3.2-5.5); ALBUMIN/GLOBULIN RATIO 1.1 (1.0-2.2); CALCIUM 8.5 mg/dL (8.5-10.3); CREATININE 0.9 mg/dL (0.4-1.0); POTASSIUM 3.7 mmol/L (3.5-5.0); TOTAL PROTEIN 6.4 g/dL (6.7-8.2)
[2021-07-05 17:53] LABS: INR 1.1 (0.8-1.2); PT - PROTHROMBIN TIME 12.1 secs (9.9-12.6)
[2021-07-06 12:47] LABS: HEPATITIS A AB TOTAL(IMMUNITY) REACTIVE (NON-REACTIVE); HEPATITIS B CORE AB TOTAL NON-REACTIVE (NON-REACTIVE); HEPATITIS C ANTIBODY NON-REACTIVE (NON-REACTIVE)
== END 2021-07-05 23:59 | disposition home or self-care (01) ==
LOC: LAB.WCP 15:08
PROVIDERS: ATTEND Internal Medicine
DX: R74.8 Abnormal levels of other serum enzymes (principal)
CPT/HCPCS: 36415; 80053; 85025; 85610; 86317; 86704; 86708; 86803

== ENCOUNTER 2021-07-20 08:00 | Outpatient (CLI) | payer MEDICARE, OTHER ==
[2021-07-20 11:43] LABS: BASOPHILS # (AUTO) 0.1 10^3/uL (0.0-0.1); BASOPHILS % (AUTO) 1.3 %; EOSINOPHILS # (AUTO) 0.2 10^3/uL (0.0-0.7); EOSINOPHILS % (AUTO) 2.7 %; HGB - HEMOGLOBIN 13.3 g/dL (12.0-16.0); LYMPHOCYTES # (AUTO) 1.3 10^3/uL (1.5-3.5); MEAN CORPUSCULAR HEMOGLOBIN 31.6 pg (27.0-31.0); MEAN CORPUSCULAR HGB CONC 32.4 g/dL (32.0-36.0); MEAN CORPUSCULAR VOLUME 97.4 fL (81.0-99.0); MEAN PLATELET VOLUME 9.8 fL (7.9-10.8); MONOCYTES # (AUTO) 0.3 10^3/uL (0.0-1.0); MONOCYTES % (AUTO) 6.2 %; NEUTROPHILS # (AUTO) 3.7 10^3/uL (1.5-6.6); NEUTROPHILS % (AUTO) 66.6 %; PLT - PLATELET COUNT 221 10^3/uL (130-450); RED BLOOD COUNT 4.21 10^6/uL (4.20-5.40); WHITE BLOOD COUNT 5.5 x10^3/uL (4.8-10.8)
[2021-07-20 12:13] LABS: ALBUMIN 3.2 g/dL (3.2-5.5); BILIRUBIN,TOTAL 1.2 mg/dL (0.2-1.0); CALCIUM 8.9 mg/dL (8.5-10.3); POTASSIUM 4.2 mmol/L (3.5-5.0); TOTAL PROTEIN 6.4 g/dL (6.7-8.2)
== END 2021-07-20 23:59 | disposition home or self-care (01) ==
LOC: LAB.WCP 08:00
PROVIDERS: ATTEND Internal Medicine
DX: R74.8 Abnormal levels of other serum enzymes (principal)
CPT/HCPCS: 36415; 80053; 85025; 86709

== ENCOUNTER 2021-07-25 10:34 | Outpatient (CLI) | payer MEDICARE, OTHER ==
--- NOTE | 2021-07-25 11:27 | SLEEP CARE CONSULTATION ---
Information from patient questionnaire entered by Piedad Morrison. I have reviewed and concur with the information entered by Piedad Morrison. This document represents the service I personally performed and the decisions made by , Maribel Benedict ARNP. History of Present Illness Service Date and Time: 07/25/2021 1034 Previous diagnosis: Severe, Obstructive Sleep Apnea-Hypopnea Syndrome AHI: 51.1 (in 2020)(26.4 in 2014) Reason for follow up: first compliance Equipment type: CPAP Equipment [facility]: [facility] [employer] [facility] Mask style: Nasal Backup mask available: No (will keep old mask when replaced) Last cushion change: over a month Prior sleep studies: Yes Year and Where: 2020 and 2014(PSG) - [facility]; - unsure Type of Sleep Study: Home sleep study HPI additional information: DEBBIE WALLS was diagnosed to have severe, AHI 51.1, obstructive sleep apnea-hypopnea syndrome and returned today for CPAP therapy first compliance follow-up. Sleep Study - Results Type of Sleep Study: Home sleep study Prior sleep studies: Yes Year and Where: 2014(PSG) - [facility]; - unsure CPAP Compliance Data - Data Reviewed with Patient Average duration of nightly device use: 5 hr 1 min Compliance rate %: 80 Current pressure setting (cmH2O): 4-15 (median 6.9, avg 11.1, max 12.6) Humidity settin Average residual AHI: 7.6 Subjective Missed days of use due to: reports: illness Patient concerns: reports: mask leak noise, epistaxis (one time). denies: aerophagia, mask discomfort, air blowing in eyes, condensation in mask/hose, nasal congestion, dry mouth, nose, throat, other Observed to snore while using device: No Current pressure setting perceived as: comfortable On therapy, patient: reports: sleeping better, awakening more refreshed, being more awake and alert during the day, more rested overall, other (getting up earlier and not taking naps like before). denies: drowsiness while driving Initial [place] Sleepiness Scale score: 11 (in 2014) Current [place] Sleepiness Scale score: 10 Allergies and Home Medications Home medication list reviewed: Yes (no changes) Review of Systems Review of systems same as previous: No (liver problem since gallbladder taken out) Physical Exam Heart Rate: 92 O2 Saturation: 97 Height: 5 ft Weight: 187 lb Weight change since last visit: 5 lb gain Body Mass Index: 36.5 BMI Classification: Obese Impression and Plan 1. Obstructive Sleep Apnea-Hypopnea Syndrome, severe, with good treatment compliance and fair apnea control with mild elevation of residual AHI. On CPAP therapy, the patient has better sleep quality and is more rested overall. She has significant improvement of her AHI and states that she is waking feeling refreshed and is not taking naps during the day. The patients pressure will be changed to autoCPAP 8-12 cmH20 for elevation of residual AHI. Patient advised to contact me if pressure change is uncomfortable so that it can be adjusted. Goals for apnea control discussed. Patient's apnea severity and rationale for hakeem tment to reduce apnea, improve sleep quality and reduce cardiovascular and cerebrovascular events was reviewed. I also reviewed the benefit of consistent device use of CPAP for diabetes, gastric reflux, and depression. * Change auto CPAP pressure to 8-12 cmH2O * Notify me if snoring with mask or feeling that the pressure is too much or too little * Attempt to lose weight * Call this office if any problems using CPAP * Return for follow up in 1-2 months, or sooner if concerns arise Counseling Topics: Spare mask, Weight loss health impact Visit Type: In Office Time Spent with Patient (minutes): 22 Provider Statement: I spent 100% of the Face to Face Visit with the patient with greater than 50% spent counseling the patient and coordination of care.
== END 2021-07-25 10:35 | disposition home or self-care (01) ==
LOC: SC 10:34
PROVIDERS: ATTEND Nurse Practitioner Family
DX: G47.33 Obstructive sleep apnea (adult) (pediatric) (principal); E66.9 Obesity, unspecified; Z68.36 Body mass index [BMI] 36.0-36.9, adult
CPT/HCPCS: 99213; G0463; 99212

== ENCOUNTER 2021-08-30 08:52 | Outpatient (CLI) | payer MEDICARE, OTHER ==
[2021-08-30 12:10] LABS: BASOPHILS % (AUTO) 0.5 %; EOSINOPHILS # (AUTO) 0.1 10^3/uL (0.0-0.7); EOSINOPHILS % (AUTO) 1.2 %; HCT - HEMATOCRIT 40.9 % (37.0-47.0); LYMPHOCYTES # (AUTO) 1.4 10^3/uL (1.5-3.5); MEAN CORPUSCULAR HEMOGLOBIN 31.6 pg (27.0-31.0); MEAN CORPUSCULAR HGB CONC 31.8 g/dL (32.0-36.0); MEAN CORPUSCULAR VOLUME 99.5 fL (81.0-99.0); MEAN PLATELET VOLUME 9.9 fL (7.9-10.8); MONOCYTES # (AUTO) 0.3 10^3/uL (0.0-1.0); MONOCYTES % (AUTO) 5.1 %; NEUTROPHILS # (AUTO) 4.8 10^3/uL (1.5-6.6); PLT - PLATELET COUNT 220 10^3/uL (130-450); RED BLOOD COUNT 4.11 10^6/uL (4.20-5.40); RED CELL DISTRIBUTION WIDTH 14.3 % (12.0-15.0); WHITE BLOOD COUNT 6.6 x10^3/uL (4.8-10.8)
[2021-08-30 12:30] LABS: ALBUMIN 3.5 g/dL (3.2-5.5); ALBUMIN/GLOBULIN RATIO 1.1 (1.0-2.2); BILIRUBIN,TOTAL 1.5 mg/dL (0.2-1.0); CREATININE 1.1 mg/dL (0.4-1.0); POTASSIUM 4.4 mmol/L (3.5-5.0); TOTAL PROTEIN 6.7 g/dL (6.7-8.2)
[2021-08-30 12:46] LABS: CREATININE,URINE 85.4 mg/dL; MICROALBUM/CREATININE RATIO,UR 331.4 ug/mg (<30.0); MICROALBUMIN,URINE 28.3 mg/dL (0-300.0)
[2021-08-30 12:48] LABS: THYROID STIMULATING HORMONE 1.49 uIU/mL (0.34-5.60)
[2021-08-30 13:02] LABS: ESTIMATED AVERAGE GLUCOSE 209 mg/dL (70-100); HEMOGLOBIN A1c% 8.9 % (4.27-6.07)
== END 2021-08-30 23:59 | disposition home or self-care (01) ==
LOC: LAB.WCP 08:52
PROVIDERS: ATTEND Family Medicine
DX: R74.8 Abnormal levels of other serum enzymes (principal); E11.3292 Type 2 diabetes mellitus with mild nonproliferative diabetic retinopathy without macular edema, left eye; I10 Essential (primary) hypertension; C7A.8 Other malignant neuroendocrine tumors
CPT/HCPCS: 36415; 80053; 81599; 82043; 82105; 82570; 83036; 84443; 85025

== ENCOUNTER 2021-09-05 10:30 | Outpatient (CLI) | payer MEDICARE, OTHER ==
--- NOTE | 2021-09-05 11:13 | SLEEP CARE CONSULTATION ---
Information from patient questionnaire entered by Alda Pereira. I have reviewed and concur with the information entered by Alda Pereira. This document represents the service I personally performed and the decisions made by me, Maribel Benedict ARNP. History of Present Illness Service Date and Time: 09/05/2021 1030 Previous diagnosis: Severe, Obstructive Sleep Apnea-Hypopnea Syndrome AHI: 51.1 Reason for follow up: other (6 weeks, with pressure change) Equipment type: CPAP [facility] (not received [facility] yet; has not called them to set up supply delivery) Mask style: Nasal Backup mask available: Yes (other mask) Last cushion change: last night Prior sleep studies: Yes Year and Where: 2020(HST)/2014(PSG) - [facility]; - unsure Type of Sleep Study: Home sleep study HPI additional information: DEBBIE WALLS was diagnosed to have severe, AHI 51.1, obstructive sleep apnea-hypopnea syndrome and returned today for CPAP therapy 6 weeks pressure change follow-up. Sleep Study - Results Type of Sleep Study: Home sleep study Prior sleep studies: Yes Year and Where: 2014(PSG) - [facility]; 2006ish - unsure CPAP Compliance Data - Data Reviewed with Patient Average duration of nightly device use: 4 hours 5 minutes Compliance rate %: 64 Current pressure setting (cmH2O): 8-12 (avg 10.6, max 11.7) Average residual AHI: 7 Central apnea: .5 Obstructive apnea: 5 Hypopnea: .4 Subjective Missed days of use due to: reports: illness, travel Patient concerns: reports: air blowing in eyes, mask leak noise, dry mouth, nose, throat (this is better, keeping water in chamber), other (Headache, thinks it is related to her blood pressure). denies: aerophagia, mask discomfort, condensation in mask/hose, nasal congestion, epistaxis Observed to snore while using device: No Current pressure setting perceived as: comfortable On therapy, patient: reports: sleeping better, awakening more refreshed, being more awake and alert during the day, more rested overall. denies: drowsiness while driving Initial [place] Sleepiness Scale score: 11 (in 2014) Current [place] Sleepiness Scale score: 7 Allergies and Home Medications Home medication list reviewed: Yes (Lisinopril increased to 20 mg twice daily; will change back to 30 mg nxt wk) Review of Systems Review of systems same as previous: Yes (no changes) Physical Exam Heart Rate: 89 O2 Saturation: 95 Height: 5 ft Weight: 188 lb Body Mass Index: 36.7 BMI Classification: Obese Impression and Plan 1. Obstructive Sleep Apnea-Hypopnea Syndrome, severe, with fair treatment compliance and fair apnea control with elevation of residual AHI. On CPAP therapy, the patient has better sleep quality and is more rested overall. Patient states she does try to wear it every night but due to her cancer treatment she gets to feeling sick and sometimes cannot wear the mask. I encouraged her to wear it with naps as well to help increase her time in the mask. She voiced understanding. Patient has not yet gotten any supplies and encouraged her to give a call to her [employer] to get some ordered. The patients pressure will be changed to autoCPAP 10-14 cmH20 for elevation of residual AHI. Patient advised to contact me if pressure change is uncomfortable so that it can be adjusted. Goals for apnea control discussed. Patient's apnea severity and rationale for treatment to reduce apnea, improve sleep quality and reduce cardiovascular and cerebrovascular events was reviewed. I also reviewed the benefit of consistent device use of CPAP for diabetes, gastric reflux and depression. Patient was encouraged to lose weight for their overall health and to reduce apneas. * Change auto CPAP pressure to 10-14 cmH2O * Patient to contact [employer] (Closed) for more supplies * Notify me if snoring with mask or feeling that the pressure is too much or too little * Attempt to lose weight * Call this office if any problems using CPAP * Return for follow up in 3 months, or sooner if concerns arise Counseling Topics: Spare mask, Weight loss health impact Visit Type: In Office Time Spent with Patient (minutes): 20 Provider Statement: I spent 100% of the Face to Face Visit with the patient with greater than 50% spent counseling the patient and coordination of care.
== END 2021-09-05 10:31 | disposition home or self-care (01) ==
LOC: SC 10:30
PROVIDERS: ATTEND Nurse Practitioner Family
DX: G47.33 Obstructive sleep apnea (adult) (pediatric) (principal); E66.9 Obesity, unspecified; Z68.36 Body mass index [BMI] 36.0-36.9, adult
CPT/HCPCS: 99213; G0463; 99212

== ENCOUNTER 2021-12-05 14:56 | Outpatient (CLI) | payer MEDICARE, OTHER ==
--- NOTE | 2021-11-06 11:55 | ONCOLOGY/HEMATOLOGY VISIT ---
HEME/ONC PROGRESS NOTE: cc: Sai Lombardo MD HEMATOLOGY/ONCOLOGY HISTORY: 1. Neuroendocrine tumor of the pancreas since 01/2017. Adenopathy in the mesenteric root, retroperitoneum and portal hepatic region. a. Grade 1 Ki-67 at 1%, 3.8 cm by endoscopic ultrasound b. Sandostatin injections with poor tolerance due to diarrhea c. Lanreotide 120 mg subcutaneous since 08/[address] Abd/Pelvis 05/2020, 05/2021 stable pancreatic mass and adenopathy. 2. Gastroesophageal reflux with esophagitis. Severe. Endoscopy early 2016. a. Long-term omeprazole use. b. History of gastrointestinal bleed. 3. Anemia of iron deficiency, status post iron infusion with resolution. 4. Comorbidities include chronic diarrhea, diabetes, renal insufficiency, chronic nephrolithiasis (followed by urology), history of dialysis. 5. Cholecystitis and elevated LFT with sepsis. 04/2021 a. s/p ERCP 04/03/21 for stone removal and stent b. s/p stent occlusion, ERCP 04/08/21; c. s/p Cholecystectomy in 04/09/2021. d. alanis LFT 04/11/21, iv antibx. ASSESSMENT/PLAN: 1. Pancreatic neuroendocrine tumor: Continuing on Lanreotide since 08/2018 with good toleration. Most recent restaging scan On 05/11/2021 did not show progression. A. Continue lanreotide 120 mg SQ every 4 weeks until disease progression or unacceptable toxicity. B. Anticipate surveillance imaging at 1 year intervals, CT Abd/Pelvis next due 05/2022. C. Office visit/labs every 3 months. 2. Renal insufficiency: Stable. Lanreotide dose adjustment not necessary based on creatinine. 3. Diarrhea: resolved after cholecystectomy. 4. Diabetes: Reasonable control based on home glucose in low-mid 100 range. Diabetes meds per PCP. 5. Persistently elevated LFT. Persistently elevated LFT in 08/2021. a. previously Referred to GI specialist for further work-up. Since she lives in [place] she wished to see a GI specialist in [place]. b. no lab done at this visit. will do in . HISTORY OF CURRENT ILLNESS/REVIEW OF SYSTEMS: Pt prefers name 'Vidhi'. Not accompanied by son Sai. In the interim continues lanreotide injections every 4 weeks. no more Diarrhea. Denies significant flushing or night sweats. Denies fever or respiratory symptoms. Does have moderate fatigue. Still able to care for her portion of home and her dog. Blood sugar checked twice daily at home, stable low to mid 100 range. FAMILY, SOCIAL HISTORY & PAST MEDICAL HISTORY: Lives in [place] with her son Amaury and his . Has toy porianale. No significant family history. Extensive medical history as noted above. PHYSICAL EXAM: wt 85kg; BP 133/68 Constitutional: Pleasant elderly woman. HEENT: Wearing cloth mask. Pupils are equal and round. Lungs: Clear to auscultation throughout without wheezing or crackles. Cardiovascular: Heart with regular rate. ABD: Central obesity stable. Extremities: Trace pedal edema bilaterally. Skin: There is no generalized rash nor petechiae. CT scan film done On 05/11/21 reviewed Pancreatic head mass currently at 36 x 40 x 42 mm From previously is 38 x 40 x 41 mm in 05/2020. Stable adenopathy 16mm. Atrophic pancreas. Clinical Data: Allergies No Known Drug Allergies Allergy (Verified 11/14/20 10:57) Home Medications Atorvastatin Calcium [Lipitor] 40 mg PO DAILY 07/26/13 [History Last Taken 07/26/13] Cholecalciferol (Vitamin D3) [Vitamin D3] 50,000 unit PO Q30D 07/26/13 [History Last Taken Unknown] Insulin Aspart [NovoLOG] 5 - 13 unit SUBQ TIDWM 07/26/13 [History Last Taken 07/25/13] Insulin Glargine,Hum.rec.anlog [Lantus] 45 unit SQ DAILY 07/26/13 [History Last Taken 07/26/13] Sertraline [Zoloft] 100 mg PO DAILY 07/26/13 [History Last Taken 07/26/13] hydroCHLOROthiazide [Hydrodiuril] 25 mg PO BID 07/26/13 [History Last Taken 07/25/13] Multivitamin [Multivitamins] 1 each PO DAILY 10/31/16 [History Last Taken Unknown] Omeprazole 10 mg PO BID 10/31/16 [History Last Taken Unknown] Diphenoxylate/Atropine [Lomotil] 1 - 2 tab ORAL PRN PRN 06/10/17 [History Last Taken Unknown] Potassium Chloride 20 meq PO BID 06/24/17 [History Last Taken Unknown] Ipratropium/Albuterol Sulfate [Iprat-Albut 0.5-3(2.5) mg/3 ml] 1 amp INH QID 06/27/17 [History Last Taken Unknown] Tamsulosin [Flomax] 1 cap PO DAILY 05/04/19 [History Last Taken Unknown] Losartan Potassium 50 mg PO DAILY 08/24/19 [History Last Taken Unknown] Lisinopril [Zestril] 20 mg PO DAILY 06/06/20 [History Last Taken Unknown]
[2021-12-05 15:49] VITALS: BP 134/78
--- NOTE | 2021-12-05 15:49 | SLEEP CARE CONSULTATION ---
Information from patient questionnaire entered by Myrna Samaniego MA. I have reviewed and concur with the information entered by Myrna Samaniego MA. This document represents the service I personally performed and the decisions made by , Maribel Benedict ARNP. History of Present Illness Service Date and Time: 12/05/2021 1456 Previous diagnosis: Severe, Obstructive Sleep Apnea-Hypopnea Syndrome AHI: 51.1 Reason for follow up: three month (PRESSURE CHANGE 3 MONTH F/U) Equipment type: CPAP Equipment obtained from: [employer] Mask style: Full face Backup mask available: Yes (other mask) Last cushion change: 3 weeks Prior sleep studies: Yes Year and Where: 2014(PSG) - [email or web address]; - unsure Type of Sleep Study: Home sleep study HPI additional information: DEBBIE WALLS was diagnosed to have severe, AHI 51.1, obstructive sleep apnea-hypopnea syndrome and returned today for CPAP therapy three month with pressure change follow-up. Sleep Study - Results Type of Sleep Study: Home sleep study Prior sleep studies: Yes Year and Where: 2014(PSG) - [email or web address]; - unsure CPAP Compliance Data - Data Reviewed with Patient Average duration of nightly device use: 2 HOURS 51 MINUTES Compliance rate %: 26 Current pressure setting (cmH2O): 10-14 Average residual AHI: 14.0 Central apnea: 0.7 Obstructive apnea: 10.1 Subjective Missed days of use due to: reports: mask issues, illness, travel, other (CHEMO, RAN OUT AND COULDNT FIND WATER, ) Patient concerns: reports: air blowing in eyes (improved with changing to the full face mask), mask leak noise, dry mouth, nose, throat. denies: aerophagia, mask discomfort, condensation in mask/hose, nasal congestion, epistaxis, other Observed to snore while using device: No Current pressure setting perceived as: comfortable On therapy, patient: reports: sleeping better, awakening more refreshed, being more awake and alert during the day, more rested overall. denies: drowsiness while driving Initial [place] Sleepiness Scale score: 11 (in 2014) Current [place] Sleepiness Scale score: 6 (2021) Allergies and Home Medications Known drug allergies: No Drug allergies reviewed: Yes Home medication list reviewed: Yes (no changes) Review of Systems Review of systems same as previous: No (High blood pressure on medications) Physical Exam Vital signs obtained and entered by: FLORY GUZMÁN Blood Pressure: 134/78 (LEFT) Heart Rate: 68 O2 Saturation: 97 (PAPER MASK) Height: 5 ft Weight: 180 lb Weight change since last visit: 8 lb loss Body Mass Index: 35.2 BMI Classification: Obese Impression and Plan 1. Obstructive Sleep Apnea-Hypopnea Syndrome, severe, with poor treatment compliance and fair apnea control with elevated residual AHi. On CPAP therapy, the patient has better sleep quality and is more rested overall. The patients pressure will be changed to autoCPAP 11-14 cmH20 for elevation of residual AHI. Patient advised to contact me if pressure change is uncomfortable so that it can be adjusted. Goals for apnea control discussed. Patient changed to a full face mask and this has reduced the mask leaks and dry mouth. She has had some difficulty on days she gets chemotherapy of using the CPAP because she is nauseous and will vomit. She was advised to wear the mask for naps during the day to increase time in the mask for her compliance and to get better benefit. She states she will continue to try to use the CPAP and try to keep it on for longer periods of time. Patient's apnea severity and rationale for treatment to reduce apnea, improve sleep quality and reduce cardiovascular and cerebrovascular events was reviewed. I also reviewed the benefit of consistent device use of CPAP for diabetes, gastric reflux and depression. Patient has lost about 8 pounds since her last visit. She was advised to continue to try to lose weight to improve her overall health and reduce apneas. * Change auto CPAP pressure to 11-14 cmH2O * Notify me if snoring with mask or feeling that the pressure is too much or too little * Continue to try to lose weight * Call this office if any problems using CPAP * Return for follow up in 1-2 months, or sooner if concerns arise Counseling Topics: Spare mask, Weight loss health impact Visit Type: In Office Time Spent with Patient (minutes): 26 Provider Statement: I spent 100% of the Face to Face Visit with the patient with greater than 50% spent counseling the patient and coordination of care.
== END 2021-12-05 14:57 | disposition home or self-care (01) ==
LOC: SC 14:56
PROVIDERS: ATTEND Nurse Practitioner Family
DX: G47.33 Obstructive sleep apnea (adult) (pediatric) (principal); E66.9 Obesity, unspecified; Z68.35 Body mass index [BMI] 35.0-35.9, adult
CPT/HCPCS: 99213; G0463; 99212

== ENCOUNTER 2022-01-16 10:19 | Outpatient (CLI) | payer MEDICARE, OTHER ==
[2022-01-16 11:07] VITALS: BP 137/86
--- NOTE | 2022-01-16 11:07 | SLEEP CARE CONSULTATION ---
Information from patient questionnaire entered by Myrna Samaniego MA. I have reviewed and concur with the information entered by Myrna Samaniego MA. This document represents the service I personally performed and the decisions made by , Maribel Benedict ARNP. History of Present Illness Service Date and Time: 01/16/2022 1019 Previous diagnosis: Severe, Obstructive Sleep Apnea-Hypopnea Syndrome AHI: 51.1 Reason for follow up: other (6 WEEK F/U, PRESSURE CHANGE,) Equipment type: CPAP Equipment obtained from: [facility] (getting supplies as needed) Mask style: Nasal Backup mask available: Yes (old mask) Last cushion change: 1 week Prior sleep studies: Yes Year and Where: 2014(PSG) - [email or web address]; - unsure Type of Sleep Study: Home sleep study HPI additional information: DEBBIE WALLS was diagnosed to have severe, AHI 51.1, obstructive sleep apnea-hypopnea syndrome and returned today for CPAP therapy 6 week with pressure change follow-up. Sleep Study - Results Type of Sleep Study: Home sleep study Prior sleep studies: Yes Year and Where: 2014(PSG) - [email or web address]; - unsure CPAP Compliance Data - Data Reviewed with Patient Average duration of nightly device use: 4 hours 19 minutes Compliance rate %: 60 Current pressure setting (cmH2O): 11-14 Average residual AHI: 4.9 Central apnea: 2.2 Obstructive apnea: 1.6 Subjective Missed days of use due to: reports: family emergency, illness Patient concerns: reports: dry mouth, nose, throat. denies: aerophagia, mask discomfort, air blowing in eyes, mask leak noise, condensation in mask/hose, nasal congestion, epistaxis, other Observed to snore while using device: No Current pressure setting perceived as: comfortable On therapy, patient: reports: sleeping better, awakening more refreshed, being more awake and alert during the day, more rested overall. denies: drowsiness while driving Initial [place] Sleepiness Scale score: 11 (in 2014) Current [place] Sleepiness Scale score: 9 (2021) Allergies and Home Medications Known drug allergies: Yes Drug allergies reviewed: Yes Home medication list reviewed: Yes (Lisinopril to 30 mg last week) Allergy and home medication list: Allergies No Known Drug Allergies Allergy (Verified 11/14/20 10:57) CANCER, DIABETIC 2, KIDNEY STONE, Review of Systems Review of systems same as previous: Yes (no changes) Physical Exam Vital signs obtained and entered by: FLORY GUZMÁN Blood Pressure: 137/86 (LEFT, PULSE 67, RESP 14,) Cuff size: wrist Heart Rate: 76 O2 Saturation: 96 (N95 MASK) Height: 5 ft Weight: 185 lb (PER PT WITH CLOTHES) Weight change since last visit: 1 WEEK - RAISED HYPETENSION MED DOSE. Body Mass Index: 36.1 BMI Classification: Obese Impression and Plan 1. Obstructive Sleep Apnea-Hypopnea Syndrome, severe, with fair treatment compliance and good apnea control. On CPAP therapy, the patient has better sleep quality and is more rested overall. Patient has been able to wear her mask for longer periods of time and feeling benefit. She states she does not take it when she travels and she had a family member just pass away. She also has difficulty on some night when she is feeling ill from cancer treatments. She is now getting adequate apnea control at CPAP pressure 11-14 cmH2O and no changes needed today. Patient does not thinks she has lost any weight. I encouraged her to try to lose weight . Patient's apnea severity and rationale for treatment to reduce apnea, improve sleep quality and reduce cardiovascular and cerebrovascular events was reviewed. I also reviewed the benefit of consistent device use of CPAP for diabetes, gastric reflux and depression. * Continue auto CPAP pressure at 11-14 cmH2O * Notify me if snoring with mask or feeling that the pressure is too much or too little * Attempt to lose weight * Call this office if any problems using CPAP * Return for follow up in 6 months, or sooner if concerns arise Counseling Topics: Spare mask, Weight loss health impact Visit Type: In Office Time Spent with Patient (minutes): 22 Provider Statement: I spent 100% of the Face to Face Visit with the patient with greater than 50% spent counseling the patient and coordination of care.
== END 2022-01-16 10:20 | disposition home or self-care (01) ==
LOC: SC 10:19
PROVIDERS: ATTEND Nurse Practitioner Family
DX: G47.33 Obstructive sleep apnea (adult) (pediatric) (principal); E66.9 Obesity, unspecified; Z68.36 Body mass index [BMI] 36.0-36.9, adult
CPT/HCPCS: 99213; G0463; 99212

== ENCOUNTER 2022-01-29 08:32 | Outpatient (CLI) | payer MEDICARE, OTHER ==
[2022-01-29 12:17] LABS: ESTIMATED AVERAGE GLUCOSE 235 mg/dL (70-100); HEMOGLOBIN A1c% 9.8 % (4.27-6.07)
== END 2022-01-29 08:33 | disposition home or self-care (01) ==
LOC: LAB 08:32
PROVIDERS: ATTEND Internal Medicine
DX: K80.50 Calculus of bile duct without cholangitis or cholecystitis without obstruction (principal); E11.3292 Type 2 diabetes mellitus with mild nonproliferative diabetic retinopathy without macular edema, left eye
CPT/HCPCS: 36415; 83036

== ENCOUNTER 2022-04-23 10:36 | Outpatient (CLI) | payer MEDICARE, OTHER ==
[2022-04-23 17:58] LABS: ALBUMIN 3.1 g/dL (3.2-5.5); BILIRUBIN,TOTAL 0.8 mg/dL (0.2-1.0); CALCIUM 8.7 mg/dL (8.5-10.3); CREATININE 1.1 mg/dL (0.4-1.0); POTASSIUM 3.6 mmol/L (3.5-5.0); TOTAL PROTEIN 6.1 g/dL (6.7-8.2)
== END 2022-04-23 10:37 | disposition home or self-care (01) ==
LOC: LAB.N 10:36
PROVIDERS: ATTEND Internal Medicine
DX: K80.50 Calculus of bile duct without cholangitis or cholecystitis without obstruction (principal)
CPT/HCPCS: 36415; 80053

== ENCOUNTER 2022-09-21 09:57 | Outpatient (CLI) | payer MEDICARE, OTHER ==
[2022-09-21 12:30] LABS: BASOPHILS % (AUTO) 0.5 %; EOSINOPHILS # (AUTO) 0.2 10^3/uL (0.0-0.7); EOSINOPHILS % (AUTO) 2.1 %; HCT - HEMATOCRIT 41.7 % (37.0-47.0); HGB - HEMOGLOBIN 13.5 g/dL (12.0-16.0); LYMPHOCYTES # (AUTO) 1.9 10^3/uL (1.5-3.5); MEAN CORPUSCULAR HEMOGLOBIN 31.7 pg (27.0-31.0); MEAN CORPUSCULAR HGB CONC 32.4 g/dL (32.0-36.0); MEAN CORPUSCULAR VOLUME 97.9 fL (81.0-99.0); MEAN PLATELET VOLUME 9.7 fL (7.9-10.8); MONOCYTES # (AUTO) 0.5 10^3/uL (0.0-1.0); NEUTROPHILS % (AUTO) 66.1 %; PLT - PLATELET COUNT 232 10^3/uL (130-450); RED BLOOD COUNT 4.26 10^6/uL (4.20-5.40); WHITE BLOOD COUNT 7.5 x10^3/uL (4.8-10.8)
[2022-09-21 13:06] LABS: CREATININE,URINE 145.2 mg/dL; MICROALBUM/CREATININE RATIO,UR 244.5 ug/mg (<30.0); MICROALBUMIN,URINE 35.5 mg/dL (0-300.0)
[2022-09-21 13:16] LABS: ALBUMIN 3.4 g/dL (3.2-5.5); ALBUMIN/GLOBULIN RATIO 1.1 (1.0-2.2); ALKALINE PHOSPHATASE 181 IU/L (42-121); ALT ALANINE AMINOTRANSFERASE 45 IU/L (10-60); AST ASPARTATE AMINOTRANSFERASE 43 IU/L (10-42); BUN - BLOOD UREA NITROGEN 24 mg/dL (6-20); CALCIUM 9.2 mg/dL (8.5-10.3); CARBON DIOXIDE - CO2 31 mmol/L (21-32); CHLORIDE 99 mmol/L (101-111); CHOLESTEROL 118 mg/dL; CREATININE 1.2 mg/dL (0.4-1.0); GFR - MDRD 43 (>89); GLUCOSE 237 mg/dL (70-100); HDL CHOLESTEROL 59 mg/dL; LDL CHOLESTEROL,CALCULATED 38 mg/dL; LDL/HDL RATIO 0.6 (<4.4); POTASSIUM 4.6 mmol/L (3.5-5.0); SODIUM 139 mmol/L (135-145); TOTAL PROTEIN 6.6 g/dL (6.7-8.2); TRIGLYCERIDES 107 mg/dL; VLDL CHOLESTEROL 21 mg/dL
[2022-09-21 13:53] LABS: ESTIMATED AVERAGE GLUCOSE 194 mg/dL (70-100); HEMOGLOBIN A1c% 8.4 % (4.27-6.07)
== END 2022-09-21 09:58 | disposition home or self-care (01) ==
LOC: LAB.N 09:57
PROVIDERS: ATTEND Internal Medicine
DX: C7A.8 Other malignant neuroendocrine tumors (principal); E78.5 Hyperlipidemia, unspecified; E11.3292 Type 2 diabetes mellitus with mild nonproliferative diabetic retinopathy without macular edema, left eye
CPT/HCPCS: 36415; 80053; 80061; 82043; 82570; 83036; 83721; 85025

== ENCOUNTER 2022-11-19 08:44 | Outpatient (CLI) | payer MEDICARE, OTHER ==
[2022-11-19] MEDS ORDERED: LIDOCAINE-MPF 1% 5 ML VIAL ONE (08:56)
[2022-11-19] MEDS ORDERED: BUPIVACAINE 0.5% PF 10 ML VIAL ONE (08:57)
[2022-11-19] MEDS ORDERED: TRIAMCINOLONE 40 MG/ML VIAL ONE (08:57)
[2022-11-19] MEDS ORDERED: iohexoL-240 10 ML VIAL IVP ONE (08:58)
--- NOTE | 2022-11-19 17:41 | XRAY Report ---
PROCEDURE: Inj/Aspiration Major Joint INDICATIONS: DJD LEFT HIP CONTRAST: Omnipaque FLUORO TIME: 1.4 TECHNIQUE: The indications, alternatives, benefits, risks, and complications of the procedure were explained to the patient. Written informed consent was obtained and placed in the chart. The patient was placed in an appropriate position on the fluoroscopy table, and a site was chosen for percutaneous access un yolis fluoroscopic guidance. Local anesthetic was administered using a 1% lidocaine solution. A hypod ermic or spinal needle was then used to access the symptomatic joint. Intra-articular location of th e needle tip was confirmed by injecting a small amount of contrast, followed by steroid administratio n. The needle was then withdrawn, and a bandage applied to the puncture site. FINDINGS: Joint injected: Left hip Medications injected: 5 mL of 40 mg/mL Kenalog, 1% lidocaine, and 0.5% Ropivacaine mixture. Complications: None. IMPRESSION: Successful fluoroscopically guided administration of steroid and anaesthetic solution into the left h ip joint. Reviewed by: Wilner Gan MD on 11/19/2022 5:40 PM PST Approved by: Wilner Gan MD on 11/19/2022 5:40 PM PST Station ID: [id number]
== END 2022-11-19 08:45 | disposition home or self-care (01) ==
LOC: DI 08:44
PROVIDERS: ATTEND Internal Medicine
DX: M16.12 Unilateral primary osteoarthritis, left hip (principal)
CPT/HCPCS: 20610; Q9966

== ENCOUNTER 2022-11-19 08:45 | Outpatient (CLI) | payer MEDICARE, OTHER ==
--- NOTE | 2022-11-19 09:44 | CT Report ---
PROCEDURE: HEAD WO INDICATIONS: History of closed head injury TECHNIQUE: Noncontrast 4.5 mm thick angled axial sections acquired from the foramen magnum to the vertex. For r adiation dose reduction, the following was used: automated exposure control, adjustment of mA and/or kV according to patient size. COMPARISON: None. FINDINGS: Image quality: Excellent. CSF spaces: Basal cisterns are patent. No extra-axial fluid collections. Ventricles are normal in size and shape. Brain: No midline shift. No intracranial masses or hemorrhage. Warren-white matter interface is norm al. Skull and face: Calvarium and visualized facial bones are intact, without suspicious lesions. Sinuses: Visualized sinuses and mastoids are clear. IMPRESSION: No acute intracranial finding. Reviewed by: Gerber Yan MD on 11/19/2022 9:43 AM [facility] Approved by: Gerber Yan MD on 11/19/2022 9:43 AM [facility] Station ID: [id number]
[2022-11-19] MEDS ORDERED: LIDOCAINE-MPF 1% 5 ML VIAL SUBQ ONE (10:16)
[2022-11-19] MEDS ORDERED: iohexoL-240 10 ML VIAL IVP ONE (10:29)
[2022-11-19] MEDS ORDERED: TRIAMCINOLONE 40 MG/ML VIAL IM ONE (10:31)
[2022-11-19] MEDS ORDERED: BUPIVACAINE 0.5% PF 10 ML VIAL IM ONE (10:33)
== END 2022-11-19 08:46 | disposition home or self-care (01) ==
LOC: DI 08:45
PROVIDERS: ATTEND Internal Medicine
DX: Z87.820 Personal history of traumatic brain injury (principal); M16.12 Unilateral primary osteoarthritis, left hip
CPT/HCPCS: 20610; 70450; 77002; Q9966

== ENCOUNTER 2022-12-18 08:00 | Outpatient (CLI) | payer MEDICARE, OTHER | END 2022-12-18 23:59 | disposition home or self-care (01) | LOC: LAB.N 08:00 | PROVIDERS: ATTEND Nurse Practitioner | DX: N39.0 Urinary tract infection, site not specified (principal) | CPT/HCPCS: 87086; 87181 ==

== ENCOUNTER 2023-01-22 09:59 | Outpatient (CLI) | payer MEDICARE, OTHER ==
[2023-01-22 11:58] LABS: BASOPHILS % (AUTO) 0.1 %; EOSINOPHILS % (AUTO) 0.4 %; HCT - HEMATOCRIT 39.7 % (37.0-47.0); HGB - HEMOGLOBIN 12.7 g/dL (12.0-16.0); LYMPHOCYTES # (AUTO) 0.8 10^3/uL (1.5-3.5); LYMPHOCYTES % (AUTO) 11.8 %; MEAN CORPUSCULAR HEMOGLOBIN 31.5 pg (27.0-31.0); MEAN CORPUSCULAR VOLUME 98.5 fL (81.0-99.0); MEAN PLATELET VOLUME 9.6 fL (7.9-10.8); MONOCYTES # (AUTO) 0.4 10^3/uL (0.0-1.0); NEUTROPHILS # (AUTO) 5.7 10^3/uL (1.5-6.6); NEUTROPHILS % (AUTO) 81.4 %; PLT - PLATELET COUNT 193 10^3/uL (130-450); RED BLOOD COUNT 4.03 10^6/uL (4.20-5.40); RED CELL DISTRIBUTION WIDTH 13.7 % (12.0-15.0)
[2023-01-22 12:39] LABS: BILIRUBIN,URINE NEGATIVE (NEGATIVE); GLUCOSE, URINE (UA) NEGATIVE (NEGATIVE); KETONES,URINE (UA) NEGATIVE (NEGATIVE); LEUKOCYTE ESTERASE, URINE TRACE (NEGATIVE); NITRITE,URINE NEGATIVE (NEGATIVE); OCCULT BLOOD,URINE NEGATIVE (NEGATIVE); PH,URINE 6.5 PH (5.0-7.5); PROTEIN,URINE NEGATIVE (NEGATIVE); UROBILINOGEN,URINE 0.2 (NORMAL) E.U./dL (NORMAL)
[2023-01-22 12:46] LABS: ALBUMIN 3.4 g/dL (3.2-5.5); ALBUMIN/GLOBULIN RATIO 1.1 (1.0-2.2); BILIRUBIN,TOTAL 0.8 mg/dL (0.2-1.0); POTASSIUM 4.3 mmol/L (3.5-5.0); TOTAL PROTEIN 6.5 g/dL (6.7-8.2)
[2023-01-22 12:47] LABS: CLARITY,URINE HAZY (CLEAR)
[2023-01-22 12:53] LABS: BACTERIA,URINE Moderate /HPF (None Seen); RBC,URINE 0-5 /HPF (0-5); SQUAMOUS EPITHELIAL CELL,UR RARE Squamous (<= Few)
[2023-01-22 12:58] LABS: ESTIMATED AVERAGE GLUCOSE 186 mg/dL (70-100); HEMOGLOBIN A1c% 8.1 % (4.27-6.07)
== END 2023-01-22 10:00 | disposition home or self-care (01) ==
LOC: LAB.N 09:59
PROVIDERS: ATTEND Internal Medicine
DX: E11.3292 Type 2 diabetes mellitus with mild nonproliferative diabetic retinopathy without macular edema, left eye (principal); C7A.8 Other malignant neuroendocrine tumors; N39.0 Urinary tract infection, site not specified; E11.42 Type 2 diabetes mellitus with diabetic polyneuropathy
CPT/HCPCS: 36415; 80053; 81001; 81003; 83036; 85025; 87086

== ENCOUNTER 2023-05-15 09:59 | Outpatient (CLI) | payer MEDICARE, OTHER | END 2023-05-15 10:00 | disposition home or self-care (01) | LOC: LAB.N 09:59 | PROVIDERS: ATTEND Internal Medicine | DX: Z53.9 Procedure and treatment not carried out, unspecified reason (principal) ==

== ENCOUNTER 2023-06-10 11:07 | Outpatient (CLI) | payer MEDICARE, OTHER ==
[2023-06-10 12:12] LABS: ESTIMATED AVERAGE GLUCOSE 220 mg/dL (70-100); HEMOGLOBIN A1c% 9.3 % (4.27-6.07)
== END 2023-06-10 11:08 | disposition home or self-care (01) ==
LOC: LAB 11:07
PROVIDERS: ATTEND Internal Medicine
DX: E11.3292 Type 2 diabetes mellitus with mild nonproliferative diabetic retinopathy without macular edema, left eye (principal)
CPT/HCPCS: 36415; 83036

== ENCOUNTER 2023-08-09 15:32 | Outpatient (CLI) | payer MEDICARE, OTHER ==
[2023-08-09 18:00] LABS: BASOPHILS # (AUTO) 0.1 10^3/uL (0.0-0.1); BASOPHILS % (AUTO) 0.8 %; EOSINOPHILS % (AUTO) 0.6 %; HCT - HEMATOCRIT 39.7 % (37.0-47.0); HGB - HEMOGLOBIN 12.7 g/dL (12.0-16.0); LYMPHOCYTES # (AUTO) 1.3 10^3/uL (1.5-3.5); LYMPHOCYTES % (AUTO) 19.7 %; MEAN CORPUSCULAR HEMOGLOBIN 31.5 pg (27.0-31.0); MEAN CORPUSCULAR VOLUME 98.5 fL (81.0-99.0); MEAN PLATELET VOLUME 9.8 fL (7.9-10.8); MONOCYTES # (AUTO) 0.4 10^3/uL (0.0-1.0); NEUTROPHILS # (AUTO) 4.6 10^3/uL (1.5-6.6); NEUTROPHILS % (AUTO) 72.6 %; PLT - PLATELET COUNT 219 10^3/uL (130-450); RED BLOOD COUNT 4.03 10^6/uL (4.20-5.40); RED CELL DISTRIBUTION WIDTH 13.1 % (12.0-15.0); WHITE BLOOD COUNT 6.4 x10^3/uL (4.8-10.8)
[2023-08-09 18:11] LABS: ALBUMIN 3.3 g/dL (3.2-5.5); ALBUMIN/GLOBULIN RATIO 1.3 (1.0-2.2); BILIRUBIN,TOTAL 0.4 mg/dL (0.2-1.0); CALCIUM 8.8 mg/dL (8.5-10.3); CREATININE 1.2 mg/dL (0.6-1.3); POTASSIUM 4.1 mmol/L (3.5-4.5); TOTAL PROTEIN 5.9 g/dL (6.4-8.9)
[2023-08-09 18:22] LABS: CREATININE,URINE 41.6 mg/dL; MICROALBUM/CREATININE RATIO,UR 103.4 ug/mg (<30.0); MICROALBUMIN,URINE 4.3 mg/dL
== END 2023-08-09 15:33 | disposition home or self-care (01) ==
LOC: LAB.N 15:32
PROVIDERS: ATTEND Internal Medicine Nephrology
DX: N18.31 Chronic kidney disease, stage 3a (principal)
CPT/HCPCS: 36415; 80053; 82043; 82306; 82570; 83970; 85025

== ENCOUNTER 2023-12-31 08:00 | Outpatient (CLI) | payer MEDICARE, OTHER | END 2023-12-31 23:59 | disposition home or self-care (01) | LOC: LAB.WCP 08:00 | PROVIDERS: ATTEND Nurse Practitioner | DX: N39.0 Urinary tract infection, site not specified (principal) | CPT/HCPCS: 87077; 87086; 87181 ==

== ENCOUNTER 2024-01-10 10:02 | Outpatient (CLI) | payer MEDICARE, OTHER ==
[2024-01-10 12:25] LABS: BILIRUBIN,URINE NEGATIVE (NEGATIVE); GLUCOSE, URINE (UA) NEGATIVE (NEGATIVE); KETONES,URINE (UA) NEGATIVE (NEGATIVE); LEUKOCYTE ESTERASE, URINE MODERATE (NEGATIVE); NITRITE,URINE NEGATIVE (NEGATIVE); OCCULT BLOOD,URINE NEGATIVE (NEGATIVE); PH,URINE 6.5 PH (5.0-7.5); PROTEIN,URINE NEGATIVE (NEGATIVE); UROBILINOGEN,URINE 1 (NORMAL) E.U./dL (NORMAL)
[2024-01-10 12:28] LABS: CLARITY,URINE SL. CLOUDY (CLEAR)
[2024-01-10 12:42] LABS: BACTERIA,URINE Few /HPF (None Seen); RBC,URINE 0-5 /HPF (0-5); SQUAMOUS EPITHELIAL CELL,UR MOD Squamous (<= Few)
[2024-01-10 12:50] LABS: CREATININE,URINE 89.7 mg/dL; MICROALBUM/CREATININE RATIO,UR 93.6 ug/mg (<30.0); MICROALBUMIN,URINE 8.4 mg/dL
== END 2024-01-10 10:03 | disposition home or self-care (01) ==
LOC: LAB.N 10:02
PROVIDERS: ATTEND Internal Medicine
DX: N39.0 Urinary tract infection, site not specified (principal); E11.42 Type 2 diabetes mellitus with diabetic polyneuropathy
CPT/HCPCS: 81001; 82043; 82570; 87086

== ENCOUNTER 2024-02-26 10:08 | Outpatient (CLI) | payer MEDICARE, OTHER ==
[2024-02-26 12:26] LABS: ESTIMATED AVERAGE GLUCOSE 217 mg/dL (70-100); HEMOGLOBIN A1c% 9.2 % (4.27-6.07)
== END 2024-02-26 10:09 | disposition home or self-care (01) ==
LOC: LAB.N 10:08
PROVIDERS: ATTEND Internal Medicine
DX: E11.40 Type 2 diabetes mellitus with diabetic neuropathy, unspecified (principal)
CPT/HCPCS: 36415; 83036

== ENCOUNTER 2024-03-04 10:36 | Outpatient (CLI) | payer MEDICARE, OTHER ==
[2024-03-04 17:43] LABS: HCT - HEMATOCRIT 39.6 % (37.0-47.0); HGB - HEMOGLOBIN 12.6 g/dL (12.0-16.0); MEAN CORPUSCULAR HEMOGLOBIN 31.4 pg (27.0-31.0); MEAN CORPUSCULAR HGB CONC 31.8 g/dL (32.0-36.0); MEAN CORPUSCULAR VOLUME 98.8 fL (81.0-99.0); MEAN PLATELET VOLUME 9.7 fL (7.9-10.8); RED BLOOD COUNT 4.01 10^6/uL (4.20-5.40); RED CELL DISTRIBUTION WIDTH 12.8 % (12.0-15.0); WHITE BLOOD COUNT 4.7 x10^3/uL (4.8-10.8)
[2024-03-04 18:00] LABS: BILIRUBIN,URINE NEGATIVE (NEGATIVE); GLUCOSE, URINE (UA) 500 mg/dL (NEGATIVE); KETONES,URINE (UA) NEGATIVE (NEGATIVE); LEUKOCYTE ESTERASE, URINE SMALL (NEGATIVE); NITRITE,URINE NEGATIVE (NEGATIVE); OCCULT BLOOD,URINE NEGATIVE (NEGATIVE); PROTEIN,URINE 30 mg/dL (NEGATIVE); UROBILINOGEN,URINE 1 (NORMAL) E.U./dL (NORMAL)
[2024-03-04 18:15] LABS: ALBUMIN 3.4 g/dL (3.2-5.5); CALCIUM 9.3 mg/dL (8.5-10.3); CREATININE 1.1 mg/dL (0.6-1.3); PHOSPHORUS 2.9 mg/dL (2.5-5.0); POTASSIUM 4.3 mmol/L (3.5-4.5)
[2024-03-04 18:17] LABS: BACTERIA,URINE Many /HPF (None Seen); CLARITY,URINE HAZY (CLEAR); SQUAMOUS EPITHELIAL CELL,UR FEW Squamous (<= Few); WBC CLUMPS,URINE PRESENT; WBC,URINE >25 /HPF (0-5)
[2024-03-04 18:48] LABS: FERRITIN 55.4 ng/mL (11.0-306.8)
[2024-03-04 19:13] LABS: CREATININE,URINE 91.7 mg/dL; MICROALBUM/CREATININE RATIO,UR 219.2 ug/mg (<30.0); MICROALBUMIN,URINE 20.1 mg/dL; PROTEIN/CREATININE RATIO,URINE 0.6 (<=0.2)
[2024-03-04 20:28] LABS: ESTIMATED AVERAGE GLUCOSE 214 mg/dL (70-100); HEMOGLOBIN A1c% 9.1 % (4.27-6.07)
== END 2024-03-04 10:37 | disposition home or self-care (01) ==
LOC: LAB.N 10:36
PROVIDERS: ATTEND Internal Medicine Nephrology
DX: E11.42 Type 2 diabetes mellitus with diabetic polyneuropathy (principal); I12.9 Hypertensive chronic kidney disease with stage 1 through stage 4 chronic kidney disease, or unspecified chronic kidney disease; E11.22 Type 2 diabetes mellitus with diabetic chronic kidney disease; N18.31 Chronic kidney disease, stage 3a; Z79.4 Long term (current) use of insulin; N32.81 Overactive bladder; E11.8 Type 2 diabetes mellitus with unspecified complications
CPT/HCPCS: 36415; 80069; 81001; 81003; 82043; 82306; 82570; 82728; 83036; 83540; 83970; 84156; 84466; 85027; 87086

== ENCOUNTER 2024-03-05 14:15 | Outpatient (CLI) | payer MEDICARE, OTHER ==
--- NOTE | 2024-03-05 15:08 | XRAY Report ---
PROCEDURE: Wrist 3+V BL INDICATIONS: WRIST PAIN TECHNIQUE: 3 views of the wrist were acquired. COMPARISON: Right wrist radiograph 04/16/2024. FINDINGS: Bones: No fractures or dislocations. No suspicious bony lesions. Low bone mineralization. Chondroc alcinosis of the left TFCC. Soft tissues: No suspicious soft tissue calcifications or masses. IMPRESSION: No acute bony abnormality. 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 Reviewed by: Ashok Meier MD on 03/05/2024 3:06 PM PDT Approved by: Ashok Meier MD on 03/05/2024 3:06 PM PDT Station ID: [id number]
== END 2024-03-05 14:16 | disposition home or self-care (01) ==
LOC: DI.N 14:15
PROVIDERS: ATTEND Internal Medicine
DX: M11.232 Other chondrocalcinosis, left wrist (principal); M25.531 Pain in right wrist

== ENCOUNTER 2024-07-28 09:13 | Outpatient (CLI) | payer MEDICARE, OTHER ==
[2024-07-28 12:39] LABS: ALBUMIN 3.4 g/dL (3.2-5.5); ALBUMIN/GLOBULIN RATIO 1.4 (1.0-2.2); BILIRUBIN,TOTAL 0.7 mg/dL (0.2-1.0); CALCIUM 8.4 mg/dL (8.5-10.3); CREATININE 1.6 mg/dL (0.6-1.3); POTASSIUM 4.4 mmol/L (3.5-4.5); TOTAL PROTEIN 5.9 g/dL (6.4-8.9)
[2024-07-28 12:53] LABS: ESTIMATED AVERAGE GLUCOSE 166 mg/dL (70-100); HEMOGLOBIN A1c% 7.4 % (4.27-6.07)
== END 2024-07-28 09:14 | disposition home or self-care (01) ==
LOC: LAB.N 09:13
PROVIDERS: ATTEND Internal Medicine
DX: E11.3292 Type 2 diabetes mellitus with mild nonproliferative diabetic retinopathy without macular edema, left eye (principal); R35.0 Frequency of micturition
CPT/HCPCS: 36415; 80053; 81001; 83036; 87086

== ENCOUNTER 2024-07-30 08:00 | Outpatient (CLI) | payer MEDICARE, OTHER | END 2024-07-30 23:59 | disposition home or self-care (01) | LOC: LAB.WCP 08:00 | PROVIDERS: ATTEND Internal Medicine | DX: R35.0 Frequency of micturition (principal) | CPT/HCPCS: 87077; 87086; 87181 ==